=== PATIENT | male | born 1950 | race Caucasian/White ===

== ENCOUNTER 2020-10-12 16:31 | Emergency (ER) | payer MEDICARE, MEDICAID, SELFPAY ==
--- NOTE | ~2020-10-12 | CT_ITS ---
EXAMINATION: CT HEAD WITHOUT CONTRAST CLINICAL INFORMATION: Fall COMPARISON: Prior CT July 2012 TECHNIQUE: Contiguous axial imaging was performed from the skull base to vertex without intravenous administration of contrast. This CT examination was performed using dose optimization techniques as appropriate, variously including the following: *Automated exposure control *Adjustment of mA and/or kV according to patient size (this includes techniques or standardized protocols for targeted exams where dose is matched to indication/reason for exam; i.e. extremities or head) *Use of iterative reconstruction technique DLP: 776 mGy-cm FINDINGS: There is no evidence of acute intracranial hemorrhage or territorial infarction. No abnormal mass effect or midline shift is seen. Pearson to white matter differentiation is well preserved. No extra-axial fluid collections are identified. The ventricles are normal in size. There is no abnormal attenuation within the brain parenchyma. The osseous structures and soft tissues are normal. The mastoid air cells and visualized portions of the paranasal sinuses are well aerated. CT/CT head/brain wo con IMPRESSION: No acute intracranial pathology.
[2020-10-12 16:48] VITALS: BP 119/71; PULSE 63; RESP 16; TEMP 36.2; O2SAT 94; BMI 27.2
--- NOTE | 2020-10-12 16:57 | ECG_ITS ---
Test Reason : near syncope Blood Pressure : / mmHG Vent. Rate : 082 BPM Atrial Rate : 082 BPM P-R Int : 130 ms QRS Dur : 102 ms QT Int : 392 ms P-R-T Axes : 073 008 026 degrees QTc Int : 457 ms Poor data quality Normal sinus rhythm Nonspecific ST and T wave abnormality Abnormal ECG When compared with ECG of 30-SEP-2014 08:40, No significant change was found Referred By: Mesha Latham Electronically Signed By:NANCIE SCHAEFER MD
--- NOTE | 2020-10-12 16:59 | ED.SYNCOPE ---
HPI - Syncope General Chief Complaint: Syncope Stated Complaint: dizzy Time Seen by Provider: 10/12/20 16:55 Source: patient Mode of arrival: EMS Limitations: no limitations History of Present Illness complaint: almost passed out Onset (ago): week(s) (4) Prodromal symptoms: lightheaded Witnessed: No Context: standing up Injuries sustained associated with event: none Current symptoms: back to baseline History: other (parkinson's disease) Treatments prior to arrival: none Related Data Home Medications Medication Instructions Recorded Confirmed acetaminophen 650 mg PO Q6H PRN 10/12/20 10/12/20 amlodipine 1 tab PO DAILY 10/12/20 10/12/20 apixaban [Eliquis] 1 tab PO BID 10/12/20 10/12/20 benzonatate 100 mg PO TID PRN 10/12/20 10/12/20 carbidopa-levodopa [Rytary] 1 cap PO TID@1900,2200 10/12/20 10/12/20 carbidopa-levodopa [Rytary] 2 cap PO 0530,1000,1430,1900 10/12/20 10/12/20 carbidopa-levodopa [Rytary] 2 cap PO BID@0530,1000,1430 10/12/20 10/12/20 gabapentin 1 cap PO TID 10/12/20 10/12/20 glimepiride 1 tab PO QAM 10/12/20 10/12/20 ibuprofen 1 tab PO BID 10/12/20 10/12/20 magnesium oxide 200 mg PO DAILY 10/12/20 10/12/20 magnesium oxide 400 mg PO BEDTIME 10/12/20 10/12/20 multivitamin 1 tab PO QAM 10/12/20 10/12/20 oxybutynin chloride 1 tab PO BEDTIME 10/12/20 10/12/20 pimavanserin [Nuplazid] 1 cap PO DAILY 10/12/20 10/12/20 sennosides [senna] 17.2 mg PO DAILY PRN 10/12/20 10/12/20 Allergies Allergy/AdvReac Type Severity Reaction Status Date / Time No Known Allergies Allergy Unverified 12/08/19 16:17 Review of Systems Review of Systems: Constitutional : No Weight loss, No Fever, No Chills, No Fatigue, No Malaise ENT/Mouth : No sore throat, No Rhinorrhea Eyes: No Eye Pain, No Swelling, No Redness Cardiovascular : No Chest Pain, No SOB, No Dyspnea on Exertion, No Orthopnea, No Edema, No Palpitations Respiratory : No Cough, No Sputum, No Wheezing Gastrointestinal : No Nausea, No Vomiting, No Diarrhea, No Constipation, No abdominal Pain, No Hematochezia, No Melena Genitourinary : No Dysuria, No Urinary Frequency, No Hematuria, Musculoskeletal : No joint pain, No Myalgias, No Joint Swelling Skin : No Skin Lesions, No rash Neuro : No Weakness, No Numbness, No Dizziness, No Headache, pos blacking out episodes Psych : No Anxiety/Panic, No Depression Heme/Lymph: No Bruising, No Bleeding,No Lymphadenopathy Endocrine : No Polyuria, No Polydipsia All other systems reviewed and are negative [facility] Past Medical History Attestation statement: The following information was validated with the patient. Medical History (Updated 10/12/20 @ 19:31 by Mesha Latham DO) Diabetes DVT (deep venous thrombosis) Parkinsons Social History Social History (Updated 10/12/20 @ 17:01 by Mesha Latham DO) Alcohol intake: never Patient Tobacco Use Status: Never used Tobacco Use of substances other than those prescribed or required for medical reasons: No Advance Directives: No Advance Directives Information Provided: Yes Physical Exam Vital Signs: Vital Signs: Last Vital Signs Temp 97.1 F 10/12/20 16:48 Pulse 68 10/12/20 17:53 Resp 16 10/12/20 16:48 BP 119/71 10/12/20 17:53 Pulse Ox 94 10/12/20 16:48 Body Mass Index 27.2 Appearance: Alert. Oriented X3. No acute distress. Eyes: Pupils equal, round and reactive to light. ENT: Pharynx normal. Neck: Normal inspection. Neck supple. CVS: Normal heart rate and rhythm. Pulses normal. Respiratory: No respiratory distress. Breath sounds normal. Abdomen: Soft and nontender. Skin: Skin warm and dry. Normal skin color. Normal skin turgor. Extremities: No lower extremity edema. No calf ttp Neuro: Oriented X 3. No motor deficit. No sensory deficit. tremor noted and some intermittent jerking movements of his head Course Course Course Narrative: patient is orthostatic repeat IVF ordered at this time, up and walking to the bathroom feels better will take off his amlodipine until he sees his PCP pateint feels much better no symptoms with standing after IVF MDM - Syncope MDM Narrative Medical decision making narrative: 70 yo male with hx of DVT on eliquis, DM, Parkinson's x 19 years comes in today with c/o near syncope occuring when he stands - no CP/SOB, no GIB symptoms, states he did not strike his head, suspect that this is due to his parkinson's disease and autonomic dysfunction, labs, EKG, ortho VS, IVF, CT head given eliquis use and repeated near falls x 4 weeks - dispo per results and findings., Lab Data Result diagrams: 10/12/20 17:15 10/12/20 17:15 Labs: Lab Results 10/12/20 10/12/20 10/12/20 Range/Units 17:14 17:15 17:15 WBC 9.0 (4.8-10.8) X10*3/uL RBC 4.75 (4.60-5.80) X10*6/uL Hgb 13.8 L (14.0-18.0) g/dl Hct 41.1 L (42-52) % MCV 86.5 (80-98) fL MCH 29.1 (27.0-33.0) pg MCHC 33.6 (31.0-36.0) g/dl RDW 12.7 (11.0-16.0) % Plt Count 221 (160-400) X10*3/uL MPV 10.3 (9.4-12.4) fL Immature Gran % (Auto) 0.3 (0.0-0.4) % Neut % (Auto) 75.4 H (45-73) % Lymph % (Auto) 13.2 L (20-40) % [place] % (Auto) 8.1 (2-11) % Eos % (Auto) 2.7 (0-4) % Baso % (Auto) 0.3 (0-2) % Lymph # (Auto) 1.2 (1.2-4.9) X10*3/uL [place] # (Auto) 0.7 (0.1-1.2) X10*3/uL Eos # (Auto) 0.2 (0.0-0.4) X10*3/uL Baso # (Auto) 0.0 (0.0-0.2) X10*3/uL Abs Immat Gran (auto) 0.03 (0.00-0.03) X10*3/uL Absolute Neuts (auto) 6.8 (2.0-8.3) X10*3/uL Absolute Nucleated RBC 0.000 (0.0-0.012) X10*3/uL Nucleated RBC % (auto) 0.0 (0.0-0.2) /100WBC PT (9.9-13.0) SEC INR (0.9-1.1) APTT (24.1-38.0) SEC Sodium 140 (135-145) mmol/L Potassium 4.1 (3.3-5.1) mmol/L Chloride 106 (96-108) mmol/L Carbon Dioxide 27 (22-29) mmol/L Anion Gap 11 L (12-20) BUN 26 H (9-16) mg/dL Creatinine 1.39 (0.5-1.4) mg/dL Estim Creat Clear Calc 52.5 Estimated GFR 51 Random Glucose 104 (60-115) mg/dL Lactic Acid 1.1 (0.5-2.0) mmol/L Calcium 9.0 (8.4-10.2) mg/dL Magnesium (1.6-2.6) mg/dL Total Bilirubin (0.0-1.0) mg/dL Direct Bilirubin (0.0-0.5) mg/dL AST (5-37) U/L ALT (0-40) U/L Alkaline Phosphatase (39-117) U/L Troponin I High Sens (<3.5-35.0) ng/L Total Protein (6.5-8.0) g/dL Albumin (3.5-5.0) g/dL Urine Color Urine Appearance Urine pH (5.0-8.0) Ur Specific [place] (1.005-1.025) Urine Protein (NEG-TRACE) MG/DL Urine Glucose (UA) (NEG) MG/DL Urine Ketones (NEG) MG/DL Urine Blood (NEG) Urine Nitrite (NEG) Ur Leukocyte Esterase (NEG) COVID-19 (BRIGHT) (Negative) COVID-19 Clin Com 10/12/20 10/12/20 10/12/20 Range/Units 17:15 17:15 17:15 WBC (4.8-10.8) X10*3/uL RBC (4.60-5.80) X10*6/uL Hgb (14.0-18.0) g/dl Hct (42-52) % MCV (80-98) fL MCH (27.0-33.0) pg MCHC (31.0-36.0) g/dl RDW (11.0-16.0) % Plt Count (160-400) X10*3/uL MPV (9.4-12.4) fL Immature Gran % (Auto) (0.0-0.4) % Neut % (Auto) (45-73) % Lymph % (Auto) (20-40) % [place] % (Auto) (2-11) % Eos % (Auto) (0-4) % Baso % (Auto) (0-2) % Lymph # (Auto) (1.2-4.9) X10*3/uL [place] # (Auto) (0.1-1.2) X10*3/uL Eos # (Auto) (0.0-0.4) X10*3/uL Baso # (Auto) (0.0-0.2) X10*3/uL Abs Immat Gran (auto) (0.00-0.03) X10*3/uL Absolute Neuts (auto) (2.0-8.3) X10*3/uL Absolute Nucleated RBC (0.0-0.012) X10*3/uL Nucleated RBC % (auto) (0.0-0.2) /100WBC PT 14.8 H (9.9-13.0) SEC INR 1.3 H (0.9-1.1) APTT 36.7 (24.1-38.0) SEC Sodium (135-145) mmol/L Potassium (3.3-5.1) mmol/L Chloride (96-108) mmol/L Carbon Dioxide (22-29) mmol/L Anion Gap (12-20) BUN (9-16) mg/dL Creatinine (0.5-1.4) mg/dL Estim Creat Clear Calc Estimated GFR Random Glucose (60-115) mg/dL Lactic Acid (0.5-2.0) mmol/L Calcium (8.4-10.2) mg/dL Magnesium 2.4 (1.6-2.6) mg/dL Total Bilirubin 0.6 (0.0-1.0) mg/dL Direct Bilirubin 0.3 (0.0-0.5) mg/dL AST 11 (5-37) U/L ALT < 6 (0-40) U/L Alkaline Phosphatase 75 (39-117) U/L Troponin I High Sens (<3.5-35.0) ng/L Total Protein 6.4 L (6.5-8.0) g/dL Albumin 4.1 (3.5-5.0) g/dL Urine Color Urine Appearance Urine pH (5.0-8.0) Ur Specific [place] (1.005-1.025) Urine Protein (NEG-TRACE) MG/DL Urine Glucose (UA) (NEG) MG/DL Urine Ketones (NEG) MG/DL Urine Blood (NEG) Urine Nitrite (NEG) Ur Leukocyte Esterase (NEG) COVID-19 (BRIGHT) Negative (Negative) COVID-19 Clin Com See Note 10/12/20 10/12/20 Range/Units 17:15 19:09 WBC (4.8-10.8) X10*3/uL RBC (4.60-5.80) X10*6/uL Hgb (14.0-18.0) g/dl Hct (42-52) % MCV (80-98) fL MCH (27.0-33.0) pg MCHC (31.0-36.0) g/dl RDW (11.0-16.0) % Plt Count (160-400) X10*3/uL MPV (9.4-12.4) fL Immature Gran % (Auto) (0.0-0.4) % Neut % (Auto) (45-73) % Lymph % (Auto) (20-40) % [place] % (Auto) (2-11) % Eos % (Auto) (0-4) % Baso % (Auto) (0-2) % Lymph # (Auto) (1.2-4.9) X10*3/uL [place] # (Auto) (0.1-1.2) X10*3/uL Eos # (Auto) (0.0-0.4) X10*3/uL Baso # (Auto) (0.0-0.2) X10*3/uL Abs Immat Gran (auto) (0.00-0.03) X10*3/uL Absolute Neuts (auto) (2.0-8.3) X10*3/uL Absolute Nucleated RBC (0.0-0.012) X10*3/uL Nucleated RBC % (auto) (0.0-0.2) /100WBC PT (9.9-13.0) SEC INR (0.9-1.1) APTT (24.1-38.0) SEC Sodium (135-145) mmol/L Potassium (3.3-5.1) mmol/L Chloride (96-108) mmol/L Carbon Dioxide (22-29) mmol/L Anion Gap (12-20) BUN (9-16) mg/dL Creatinine (0.5-1.4) mg/dL Estim Creat Clear Calc Estimated GFR Random Glucose (60-115) mg/dL Lactic Acid (0.5-2.0) mmol/L Calcium (8.4-10.2) mg/dL Magnesium (1.6-2.6) mg/dL Total Bilirubin (0.0-1.0) mg/dL Direct Bilirubin (0.0-0.5) mg/dL AST (5-37) U/L ALT (0-40) U/L Alkaline Phosphatase (39-117) U/L Troponin I High Sens 4.0 (<3.5-35.0) ng/L Total Protein (6.5-8.0) g/dL Albumin (3.5-5.0) g/dL Urine Color YELLOW Urine Appearance HAZY Urine pH 6.0 (5.0-8.0) Ur Specific [place] 1.020 (1.005-1.025) Urine Protein NEG (NEG-TRACE) MG/DL Urine Glucose (UA) NEG (NEG) MG/DL Urine Ketones 5 (NEG) MG/DL Urine Blood NEG (NEG) Urine Nitrite NEG (NEG) Ur Leukocyte Esterase NEG (NEG) COVID-19 (BRIGHT) (Negative) COVID-19 Clin Com ECG Data Attestation: I personally reviewed and interpreted this ECG as follows: ECG interpretation date: 10/12/20 ECG interpretation time: 20:33 Interpretation: Rate: 825 Rhythm: NSR [place]: left Normal P waves. Normal JUANITO. Normal QRS complex. ST T wave : normal no DANIELLE, nonspecific qTC: normal prior studies: no acute ischemia artifact noted The study has been interpreted contemporaneously by me. . Discharge Plan Discharge Clinical Impression: Orthostatic hypotension Patient Disposition: Home, Self-Care Instructions: Hypotension (ED) Additional Instructions: return to ED for any worsening symptoms or concerns STOP TAKING AMLODIPINE UNTIL YOU SEE YOUR DOCTOR BEFORE STANDING COUNT TO 20 THEN STAND Prescriptions: No Action multivitamin Tablet 1 tab PO QAM RF: 0 gabapentin 400 mg capsule 1 cap PO TID RF: 0 amlodipine 5 mg tablet 1 tab PO DAILY RF: 0 glimepiride 1 mg tablet 1 tab PO QAM RF: 0 magnesium oxide 400 mg (241.3 mg magnesium) tablet 400 mg PO BEDTIME RF: 0 magnesium oxide 400 mg (241.3 mg magnesium) tablet 200 mg PO DAILY RF: 0 ibuprofen 600 mg tablet 1 tab PO BID RF: 0 oxybutynin chloride 5 mg tablet 1 tab PO BEDTIME RF: 0 Eliquis 2.5 mg tablet 1 tab PO BID RF: 0 Rytary 23.75-95 mg capsule, extended release 2 cap PO BID@0530,1000,1430 RF: 0 Rytary 23.75-95 mg capsule, extended release 1 cap PO TID@1900,2200 RF: 0 Nuplazid 34 mg capsule 1 cap PO DAILY RF: 0 sennosides [senna] 8.6 mg Tablet 17.2 mg PO DAILY PRN (Reason: Constipation) RF: 0 acetaminophen 325 mg Tablet 650 mg PO Q6H PRN (Reason: Pain) RF: 0 benzonatate 100 mg Capsule 100 mg PO TID PRN (Reason: Cough) RF: 0 Rytary 61.25-245 mg capsule, extended release 2 cap PO 0530,1000,1430,1900 RF: 0 Referrals: Sundeep Sosa MD [Primary Care Provider] - 5 days (THURSDAY)
[2020-10-12 17:23] LABS: MANUAL DIFF FLAG NO
[2020-10-12 17:24] LABS: Basophils Percent Auto 0.3 % (0-2); Eosinophils Absolute Auto 0.2 X10*3/uL (0.0-0.4); Eosinophils Percent Auto 2.7 % (0-4); Hematocrit 41.1 % (42-52); Hemoglobin 13.8 g/dl (14.0-18.0); Imm Gran Abs Auto 0.03 X10*3/uL (0.00-0.03); Imm Gran Pct Auto 0.3 % (0.0-0.4); Lymphocytes Absolute Auto 1.2 X10*3/uL (1.2-4.9); Lymphocytes Percent Auto 13.2 % (20-40); Mean Corpuscular HGB Conc 33.6 g/dl (31.0-36.0); Mean Corpuscular Hemoglobin 29.1 pg (27.0-33.0); Mean Corpuscular Volume 86.5 fL (80-98); Mean Platelet Volume 10.3 fL (9.4-12.4); Monocytes Absolute Auto 0.7 X10*3/uL (0.1-1.2); Monocytes Percent Auto 8.1 % (2-11); Neutrophils Absolute Auto 6.8 X10*3/uL (2.0-8.3); Neutrophils Percent Auto 75.4 % (45-73); Platelet Count 221 X10*3/uL (160-400); Red Blood Count 4.75 X10*6/uL (4.60-5.80); Red Cell Distribution Width 12.7 % (11.0-16.0)
[2020-10-12 17:30] LABS: INTERNATIONAL NORM RATIO 1.3 (0.9-1.1); Prothrombin Time 14.8 SEC (9.9-13.0)
[2020-10-12 17:33] LABS: Partial Thromboplastin Time 36.7 SEC (24.1-38.0)
[2020-10-12] MEDS: 0.9 % Sodium Chloride 1,000 ML 999 ML IVCONT ×2 (17:37→20:45)
[2020-10-12 17:47] LABS: Lactic Acid 1.1 mmol/L (0.5-2.0)
[2020-10-12 17:50] LABS: COVID-19 Test Negative (Negative); IDNOW Serial# 08D9AD1C
[2020-10-12 17:52] VITALS: BP 142/87; PULSE 63
[2020-10-12 17:52] LABS: Anion Gap 11 (12-20); Blood Urea Nitrogen 26 mg/dL (9-16); Carbon Dioxide 27 mmol/L (22-29); Chloride 106 mmol/L (96-108); Creatinine Clr Calc Pharmacy 52.5; Estimated Glomerular Filt Rate 51; Glucose Random 104 mg/dL (60-115); Potassium 4.1 mmol/L (3.3-5.1); Sodium 140 mmol/L (135-145)
[2020-10-12 17:53] VITALS: BP 119/71; BP 123/79; PULSE 66; PULSE 68
[2020-10-12 18:02] LABS: Alanine Aminotransferase < 6 U/L (0-40); Albumin Level 4.1 g/dL (3.5-5.0); Alkaline Phosphatase 75 U/L (39-117); Aspartate Amino Transferase 11 U/L (5-37); Bilirubin Direct 0.3 mg/dL (0.0-0.5); Bilirubin Total 0.6 mg/dL (0.0-1.0); Magnesium 2.4 mg/dL (1.6-2.6); Total Protein 6.4 g/dL (6.5-8.0)
[2020-10-12] MEDS: Carbidopa/Levodopa CR 25/100 TABLET.ER 1 TAB PO (19:01)
[2020-10-12] MEDS: Carbidopa/Levodopa CR 50/200 TABLET.ER 2.5 TAB PO (19:01)
[2020-10-12 19:15] LABS: Glucose Urine UA NEG (NEG); Leukocyte Esterase Urine NEG (NEG); Nitrite Urine NEG (NEG); Urine Blood NEG (NEG); Urine Ketones 5 MG/DL (NEG); Urine Protein NEG (NEG-TRACE)
[2020-10-12 19:16] LABS: Appearance Urine HAZY; Color Urine YELLOW
[2020-10-12 22:08] VITALS: BP 134/76; PULSE 72; RESP 16; TEMP 36.7; O2SAT 97
== END 2020-10-12 22:09 | disposition home or self-care (01) ==
PROVIDERS: Emergency Provider Emergency Medicine; PCP Family Medicine
DX: I95.1 Orthostatic hypotension (principal); R42 Dizziness and giddiness; Z20.822 Contact with and (suspected) exposure to COVID-19; Z86.718 Personal history of other venous thrombosis and embolism; Z79.01 Long term (current) use of anticoagulants
CPT/HCPCS: 36415; 70450; 80048; 80076; 81003; 83605; 83735; 84484; 85025; 85610; 85730; 87635; 93005; 96360; 99284

== ENCOUNTER 2021-02-13 10:01 | Outpatient (REF) | payer MEDICARE, MEDICAID, SELFPAY | END 2021-02-13 10:02 | disposition home or self-care (01) | LOC: HO.LAB 10:01 | PROVIDERS: Visit Provider Internal Medicine | DX: Z20.822 Contact with and (suspected) exposure to COVID-19 (principal) | CPT/HCPCS: C9803; U0003; U0005 ==

== ENCOUNTER → 2021-04-04 11:39 | Outpatient (BNVA) | payer MEDICARE, MEDICAID, SELFPAY | PROVIDERS: PCP Family Medicine; Visit Provider Nurse Practitioner Family | DX: G20 Parkinson's disease (principal); G47.52 REM sleep behavior disorder; G47.51 Confusional arousals; F39 Unspecified mood [affective] disorder | CPT/HCPCS: 99212 ==

== ENCOUNTER → 2021-06-25 12:02 | Outpatient (REF) | payer MEDICARE, MEDICAID, SELFPAY | LOC: HO.SL 12:02 | PROVIDERS: Visit Provider Nurse Practitioner Family | DX: R06.83 Snoring (principal); G47.19 Other hypersomnia; G47.51 Confusional arousals | CPT/HCPCS: 95806 ==

== ENCOUNTER → 2021-07-04 11:05 | Outpatient (BNVA) | payer MEDICARE, MEDICAID, SELFPAY | PROVIDERS: PCP Family Medicine; Visit Provider Nurse Practitioner Family | DX: G20 Parkinson's disease (principal); G47.51 Confusional arousals; G47.52 REM sleep behavior disorder; R06.83 Snoring; F39 Unspecified mood [affective] disorder | CPT/HCPCS: 99212 ==

== ENCOUNTER → 2021-10-03 11:42 | Outpatient (BNVA) | payer MEDICARE, MEDICAID, SELFPAY | PROVIDERS: Visit Provider Nurse Practitioner Family | DX: G20 Parkinson's disease (principal); G47.52 REM sleep behavior disorder; F39 Unspecified mood [affective] disorder; G47.51 Confusional arousals; Z79.899 Other long term (current) drug therapy | CPT/HCPCS: 99212 ==

== ENCOUNTER → 2021-11-20 20:30 | Outpatient (REF) | payer MEDICARE, MEDICAID, SELFPAY | LOC: HO.SL 20:30 | PROVIDERS: PCP Nurse Practitioner Family; Visit Provider Nurse Practitioner Family | DX: G47.52 REM sleep behavior disorder (principal); G20 Parkinson's disease; G47.51 Confusional arousals; R06.83 Snoring | CPT/HCPCS: 95810 ==

== ENCOUNTER → 2022-01-02 10:51 | Outpatient (BNVA) | payer MEDICARE, MEDICAID, SELFPAY | PROVIDERS: PCP Nurse Practitioner Family; Visit Provider Nurse Practitioner Family | DX: G47.31 Primary central sleep apnea (principal); G20 Parkinson's disease; G31.84 Mild cognitive impairment of uncertain or unknown etiology; G47.33 Obstructive sleep apnea (adult) (pediatric); F39 Unspecified mood [affective] disorder; G47.52 REM sleep behavior disorder | CPT/HCPCS: 99212 ==

== ENCOUNTER → 2022-02-25 19:30 | Outpatient (REF) | payer MEDICARE, MEDICAID, SELFPAY | LOC: HO.SL 19:30 | PROVIDERS: Visit Provider Psychiatry & Neurology Neurology | DX: G47.33 Obstructive sleep apnea (adult) (pediatric) (principal) | CPT/HCPCS: 95811 ==

== ENCOUNTER → 2022-04-02 11:03 | Outpatient (BNVA) | payer MEDICARE, MEDICAID, SELFPAY | PROVIDERS: PCP Family Medicine; Visit Provider Nurse Practitioner Family | DX: G20 Parkinson's disease (principal); G47.33 Obstructive sleep apnea (adult) (pediatric); G47.31 Primary central sleep apnea; G31.84 Mild cognitive impairment of uncertain or unknown etiology; F39 Unspecified mood [affective] disorder | CPT/HCPCS: 99212 ==

== ENCOUNTER → 2022-07-11 11:26 | Outpatient (BNVA) | payer MEDICARE, MEDICAID, SELFPAY | PROVIDERS: PCP Family Medicine; Visit Provider Nurse Practitioner Family | DX: G20 Parkinson's disease (principal); R42 Dizziness and giddiness | CPT/HCPCS: 99212 ==

== ENCOUNTER 2023-05-26 13:01 | Outpatient (AMB) | payer MEDICARE, MEDICAID, SELFPAY ==
--- NOTE | 2023-05-26 13:08 | MHC.OFFVIS ---
Intake Vital Signs 05/26/23 13:16 Weight 166 lb BP 96/64 Blood Pressure Location Rt brachial Position Sitting Pulse 79 Pulse Source Pulse Oximeter Pulse Oximetry (%) 97 Oxygen Delivery Method Room Air Intake Visit Reasons: f/u appt-Conf Intake Note: Patient presents for follow up. no issues or concerns Allergies No Known Allergies Allergy (Verified 05/26/23 13:11) Medication List - Last Reconciled 05/26/23 by GRZEGORZ Cee acetaminophen (Tylenol) 650 mg PO Q6H PRN apixaban (Eliquis) 5 mg PO BID benzonatate 100 mg PO TID PRN carbidopa-levodopa 23.75-95 mg ER (Rytary) 2 caps at 0530, 1000, 1430, 1 cap at 1700 and 2200 orally; 90 days carbidopa-levodopa 61.25-245 mg ER (Rytary) 2 caps PO QID 30 days clozapine 25 mg PO BEDTIME gabapentin 1 cap PO TID glimepiride 2 mg PO QAM glimepiride 2 mg PO DAILY hydralazine 25 mg PO QID magnesium oxide 200 mg PO DAILY magnesium oxide 400 mg PO BEDTIME metoprolol succinate ER 12.5 mg PO DAILY multivitamin 1 tab PO QAM oxybutynin chloride 1 tab PO BEDTIME pimavanserin (Nuplazid) 1 cap PO DAILY rosuvastatin 10 mg PO DAILY sennosides (senna) 17.2 mg PO DAILY PRN HPI HPI Comments History of Present Illness Details 72-yr-old male presents for f/u visit, accompanied by [facility] staff. Pt last seen in June 2022. Pt denies any significant interval medical history changes. However, he recently did have a mild Covid-19 infection, which was tx'd w/ Paxlovid d/t his comorbidities. Pt's current PD medication regimen: Rytary 61. 25-245mg- 2 caps QID at 5:30am, 10am, 2:30pm, 7pm, Rytary 23. 75-95 mg- 2 caps TID at 5:30am, 10am, 2:30pm, and Rytary 23. 75-95mg 1 cap at 7pm and 10pm- pt may be woken for 10pm dose. Pt had been having episodes of passing out. He states this is better since one of his medications (possibly metoprolol) was stopped. His last episode was about a month ago. He describes the syncope as usually just after standing up or standing up and taking a few steps- and then things just get real black and he slumps to the floor. Staff is also encouraging him to drink more. He can still have transient milder orthostatic lightheaded. In office today his BP is mildly hypotensive. On review of his recent penitentiary records- BP has been ranging from 128/81 to 189/111- pt states these are taken before his am meds. ADL's: Needing some help Swallowing: No issues Drooling: Denies Orthostatic lightheadedness: as above Constipation: Denies Freezing: Denies Stiffness: Denies Dyskinesia: Is having more dyskinesia- usually an hour before each med pass, and resolves pretty quickly after taking Rytary.. Tremor: None Falls: Has had some falls- has banged his knee. Hallucinations: Denies Memory: No issues Sleep: Sleeping ok Exercise: Has PT twice a week. [facility] Medical History Diabetes DVT (deep venous thrombosis) Parkinsons Surgical History No pertinent past surgical history Social History Alcohol intake: never Patient Tobacco Use Status: Never used Tobacco Review of Systems Const All systems reviewed & are unremarkable except as noted in HPI and below Physical Exam Vital Signs: Last Vital Signs Pulse 79 05/26/23 13:16 BP 96/64 05/26/23 13:16 Pulse Ox 97 05/26/23 13:16 Oxygen Delivery Method Room Air 05/26/23 13:16 Const General: cooperative and no acute distress Resp Effort & Inspection: normal respiratory effort and able to speak in complete sentences Neuro Other: General: A&O, w/ some limited insight Expression: Decreased Voice: soft Tremor: None Tone: BUE tone Dyskinesia: Marked generalized dyskinesia FFM: Mild bradykinesia Foot taps: Bradykinesia Gait: Stands ok, dyskinetic, knees bent, short steps, overall steady Psych: Pleasant affect Assessment & Plan Assessment & Plan (1) Parkinson's disease with dyskinesia: Code(s): G20.B1 - Parkinson's disease with dyskinesia, without mention of fluctuations (2) Orthostatic lightheadedness: Code(s): R42 - Dizziness and giddiness (3) Syncope: Code(s): R55 - Syncope and collapse (4) HTN (hypertension): Code(s): I10 - Essential (primary) hypertension Plan Will request recent PCP notes and previous CV work-up.. Will request nephrology consult- would appreciate an eval for 24 hr BP monitor to better assess BP status/fluctuations. Stop current Rytary regimen: Rytary 61. 25-245mg- 2 caps QID at 5:30am, 10am, 2:30pm, 7pm, Rytary 23. 75-95 mg- 2 caps TID at 5:30am, 10am, 2:30pm, Rytary 23. 75-95mg 1 cap at 7pm and 10pm- pt may be woken for 10pm dose.? Decrease Rytary regimen, in hopes this reduces dyskinesia, orthostatic lightheadedness, risk for syncope- Rytary 61. 25-245mg- 2 caps QID at 5:30am, 10am, 2:30pm, 7pm, Rytary 23. 75-95 mg- 1 cap QID at 5:30am, 10am, 2:30pm, 10pm- pt may be woken for 10pm dose. Continue Nuplazid 34mg qd. Continue to hold PAP therapy- pt did not tolerate f/u in 3 months or sooner prn. Orders: Referrals Nephrology Referral G20.B1 - Parkinson's disease with dyskinesia, without mention of fluctuations, I10 - Essential (primary) hypertension, R42 - Dizziness and giddiness, R55 - Syncope and collapse Medications: Refilled carbidopa-levodopa 23.75-95 mg ER (Rytary) 2 caps at 0530, 1000, 1430, 1 cap at 1700 and 2200 orally; 90 days 240 caps 6RF Coding Level of Care Code Est Pt Level 4 (77495) Diagnoses Parkinson's disease with dyskinesia G20.B1 Orthostatic lightheadedness R42 Syncope R55 HTN (hypertension) I10
[2023-05-26 13:16] VITALS: BP 96/64; PULSE 79; O2SAT 97
== END 2023-05-26 14:04 | disposition home or self-care (01) ==
PROVIDERS: PCP Family Medicine; Visit Provider Nurse Practitioner Family
DX: G20.B1 Parkinson's disease with dyskinesia, without mention of fluctuations (principal); R42 Dizziness and giddiness; R55 Syncope and collapse; I10 Essential (primary) hypertension
CPT/HCPCS: 99214

== ENCOUNTER → 2023-05-26 13:01 | Outpatient (BNVA) | payer MEDICARE, MEDICAID, SELFPAY | PROVIDERS: PCP Family Medicine; Visit Provider Nurse Practitioner Family | DX: G20.B1 Parkinson's disease with dyskinesia, without mention of fluctuations (principal); R42 Dizziness and giddiness; R55 Syncope and collapse; I10 Essential (primary) hypertension | CPT/HCPCS: 99212 ==

== ENCOUNTER 2023-06-17 12:03 | Outpatient (AMB) | payer MEDICARE, MEDICAID, SELFPAY ==
--- NOTE | 2023-06-17 12:04 | HO.NEPHOV_ITS ---
HPI HPI Comments History of Present Illness Details I had the pleasure of seeing Kirk who is 72 year old male in consultation for labile blood pressure with orthostasis on a backdrop of CKD and Parkinson's disease. He was accompanied by his care home staff. He is known to have diabetes but denies any retinopathy or diabetic neuropathy. He has history of hypertension and has been on metoprolol, lisinopril and hydralazine in the past he had been having multiple episodes of syncope recently and his hydralazine had been discontinued at that time. He continues to be on metoprolol and lisinopril. His orthostatic symptoms were happening more so when he stands up from sitting or lying down positions. He did not have any chest pain or palpitation or wanting symptoms preceding the event. He has not had any loop monitor, Holter or echocardiogram. Ever since his hydralazine has been discontinued he feels remarkably better. He denies fever, chest pain, shortness of breath, palpitation, pedal edema or urinary symptoms. He feels his Parkinson's disease is under good control. [facility] Medical History Diabetes DVT (deep venous thrombosis) Parkinsons Surgical History No pertinent past surgical history Social History Alcohol intake: never Patient Tobacco Use Status: Never used Tobacco Vital Signs 06/17/23 12:05 Height 5 ft 10 in Weight 163 lb 6 oz BMI 23.4 BP 132/80 Blood Pressure Location Lt brachial Position Sitting Pulse 72 Pulse Source Pulse Oximeter Pulse Oximetry (%) 98 Oxygen Delivery Method Room Air Physical Exam Vital Signs: Last Vital Signs Pulse 72 06/17/23 12:05 BP 132/80 06/17/23 12:05 Pulse Ox 98 06/17/23 12:05 Oxygen Delivery Method Room Air 06/17/23 12:05 BMI result Body Mass Index 23.4 Const General: no acute distress, alert and awake Orientation/consciousness: patient oriented x3 Eyes EOM: EOMs intact bilaterally Neck Neck: Yes supple Resp Auscultation: diminished lung sounds Cardio Jugular venous distension: no JVD Rate: regular rate GI Palpation (GI): Soft to palpation General: Yes no CVA tenderness Back/Spine/Pelvis Back: no CVA tenderness Skin General skin exam: no rashes or lesions noted Neuro General: patient oriented x3 and moves all extremities Extrem General: Yes no pedal edema Assessment & Plan Assessment & Plan (1) HTN (hypertension): Code(s): I10 - Essential (primary) hypertension Qualifiers: Hypertension type: primary hypertension Qualified Code(s): I10 - Essential (primary) hypertension (2) CKD (chronic kidney disease) stage 3, GFR 30-59 ml/min: Code(s): N18.30 - Chronic kidney disease, stage 3 unspecified Qualifiers: Chronic kidney disease stage 3 subtype: stage 3a (GFR 45-59) Qualified Code(s): N18.31 - Chronic kidney disease, stage 3a (3) Orthostatic hypotension dysautonomic syndrome: Code(s): I95.1 - Orthostatic hypotension Plan Kirk is a diabetic and hypertensive. He is known to have CKD. He has Parkinson's disease. He has been having dysautonomia, more pronounced when he was taking hydralazine. It had been discontinued and he remains on lisinopril and metoprolol. We should do an echocardiogram, Holter monitor or loop recorder for workup completion. He still has some orthostasis but not anywhere close to what he had in the past. When I checked his blood pressure sitting and standing there was a systolic drop of close to 20 mmHg. I have ordered CBC and renal functions. If he continues to have symptom he could be a candidate for midodrine, Florinef or Droxidopa. He is well hydrated clinically and is not tachycardic. He is also on oxybutynin which he should take orally at bedtime. I did not make any changes today. All his questions were answered. I will be following up in the office in a few months to see whether he needs medications to avoid significant orthostasis. Further management is pending evolving data. Orders: Orders Complete Blood Count Auto Diff Today I10 - Essential (primary) hypertension Creatinine Today I10 - Essential (primary) hypertension Blood Urea Nitrogen Today I10 - Essential (primary) hypertension Electrolytes Today I10 - Essential (primary) hypertension Coding Level of Care Code New Pt Level 4 (91525) Diagnoses Primary hypertension I10 Hypertension type: primary hypertension Stage 3a chronic kidney disease N18.31 Chronic kidney disease stage 3 subtype: stage 3a (GFR 45-59) Orthostatic hypotension dysautonomic syndrome I95.1 Results Reviewed Nephrology Results: No Data to Display
[2023-06-17 12:05] VITALS: BP 132/80; PULSE 72; O2SAT 98; BMI 23.4
== END 2023-06-17 12:31 | disposition home or self-care (01) ==
PROVIDERS: PCP Family Medicine; Referring Provider Nurse Practitioner Family; Visit Provider Internal Medicine Nephrology
DX: I10 Essential (primary) hypertension (principal); N18.31 Chronic kidney disease, stage 3a; I95.1 Orthostatic hypotension
CPT/HCPCS: 99204

== ENCOUNTER → 2023-06-17 12:03 | Outpatient (BNVA) | payer MEDICARE, MEDICAID, SELFPAY | PROVIDERS: PCP Family Medicine; Referring Provider Nurse Practitioner Family; Visit Provider Internal Medicine Nephrology | DX: I12.9 Hypertensive chronic kidney disease with stage 1 through stage 4 chronic kidney disease, or unspecified chronic kidney disease (principal); N18.31 Chronic kidney disease, stage 3a; I95.1 Orthostatic hypotension | CPT/HCPCS: 99202 ==

== ENCOUNTER 2023-09-17 13:02 | Outpatient (AMB) | payer MEDICARE, MEDICAID, SELFPAY ==
--- NOTE | 2023-09-17 13:10 | MHC.OFFVIS ---
Vital Signs 09/17/23 13:12 Height 5 ft 10 in Weight 163 lb BMI 23.4 BP 170/98 H Blood Pressure Location Lt brachial Position Sitting Respiration 16 Pulse 75 Pulse Source Pulse Oximeter Pulse Oximetry (%) 98 Oxygen Delivery Method Room Air Intake Visit Reasons: f/u appt-LVM Intake Note: Pt presents tot he office for a 3 month follow up for orthostatic lightheadedness. [employer] Worker Required: No Allergies morphine Allergy (Verified 09/17/23 13:11) Unknown Medication List - Last Reconciled 09/17/23 by GRZEGORZ Cee acetaminophen (Tylenol) 650 mg PO Q6H PRN apixaban (Eliquis) 5 mg PO BID benzonatate 100 mg PO TID PRN carbidopa-levodopa 23.75-95 mg ER (Rytary) 1 caps at 05:30, 1000, 1430, and 22:00 orally; 90 days carbidopa-levodopa 61.25-245 mg ER (Rytary) 2 caps PO QID 30 days clozapine 25 mg PO BEDTIME gabapentin 1 cap PO TID glimepiride 2 mg PO DAILY lisinopril 5 mg PO DAILY magnesium oxide 200 mg PO DAILY magnesium oxide 400 mg PO BEDTIME metoprolol succinate ER 25 mg PO DAILY multivitamin 1 tab PO QAM pimavanserin (Nuplazid) 34 mg PO DAILY 30 days rosuvastatin 10 mg PO DAILY sennosides (senna) 17.2 mg PO DAILY PRN HPI Comments Details: 72-yr-old male presents for f/u visit, accompanied by his retirement staff member. Pt denies any significant interval medical history changes. Pt denies any specific concerns. At the last visit, we did decrease his Rytary dose- pt is now less hypotenive and orthostatic but is slower/stiffer. Staff support notes that pt's BP continues to be variable. Pt did see nephrology, who recommended that PCP or cardiology order echocardiogram, Holter monitor or loop recorder for workup completion Pt's current PD medication regimen: Rytary 61. 25-245mg- 2 caps QID at 5:30am, 10am, 2:30pm, 7pm, Rytary 23. 75-95 mg- 1 cap QID at 5:30am, 10am, 2:30pm, 10pm- pt may be woken for 10pm dose. Nuplazid 34mg qd. ADL's: Needing some help Swallowing: No issues Drooling: Denies Orthostatic lightheadedness: as above Constipation: Sometimes, but has a stool softener if needed. Urinary symptoms: Nocturnal incontinence- staff states that he may be wet 3 mornings in a week. Pt states that sometimes he cannot get up in the am. Freezing: Occasionally at times Stiffness: Sometimes Dyskinesia: This is happening less, but at times. Tremor: None Falls: One interval fall- lost balance. Hallucinations: Denies. But sometimes has paranoias that he is not safe, but staff support him. Memory: No issues Mood: Stable Sleep: Sleeping ok Exercise: Has PT and OT twice a week. [facility] Medical History (Updated 09/17/23 @ 14:05 by GRZEGORZ Cee) DVT (deep venous thrombosis) Diabetes Parkinsons Surgical History No pertinent past surgical history Social History Alcohol intake: never Patient Tobacco Use Status: Never used Tobacco Review of Systems Const All systems reviewed & are unremarkable except as noted in HPI and below Physical Exam Vital Signs: Last Vital Signs Pulse 75 09/17/23 13:12 Resp 16 09/17/23 13:12 BP 170/98 H 09/17/23 13:12 Pulse Ox 98 09/17/23 13:12 Oxygen Delivery Method Room Air 09/17/23 13:12 BMI result Body Mass Index 23.4 Const General: cooperative and no acute distress Resp Effort & Inspection: normal respiratory effort and able to speak in complete sentences Neuro Other: General: A&O, Generalized bradykineisa Expression: Decreased Voice: soft Tremor: None Tone: BUE tone Dyskinesia: None FFM: pt declined Foot taps: pt declined Gait: Stands slowly, no arm swing, knees bent, short steps, overall steady Psych: Pleasant affect Assessment & Plan Assessment & Plan (1) Parkinson's disease with dyskinesia: Code(s): G20.B1 - Parkinson's disease with dyskinesia, without mention of fluctuations Category: Medical (2) Orthostatic hypotension dysautonomic syndrome: Code(s): I95.1 - Orthostatic hypotension Category: Medical (3) Mood disorder: Comment: w/ h/o delusions and hallucinations Code(s): F39 - Unspecified mood [affective] disorder Category: Medical (4) MCI (mild cognitive impairment): Code(s): G31.84 - Mild cognitive impairment of uncertain or unknown etiology Category: Medical Plan Will again request recent PCP notes and previous CV work-up. Nephrology f/u as scheduled. If pt has not had previously, pt would also benefit from cardiology consult, echocardiogram, holter monitor. Stop current Rytary regimen, in hopes this improves on time without worsening risk for orthostatic lightheadedness, risk for syncope- Rytary 61. 25-245mg- 2 caps QID at 5:30am, 10am, 2:30pm, 7pm, Rytary 23. 75-95 mg- 1 cap QID at 5:30am, 10am, 2:30pm, 10pm- pt may be woken for 10pm dose. Start new Rytary regimen, in hopes this improves on time without worsening risk for orthostatic lightheadedness, risk for syncope- Rytary 61. 25-245mg- 2 caps QID at 5:30am, 10am, 2:30pm, 7pm, and 1 cap daily at 10pm Rytary 23. 75-95 mg- 1 cap QID at 5:30am, 10am, 2:30pm, 10pm. Continue Nuplazid 34mg qd. Continue to hold PAP therapy- pt did not tolerate f/u in 3 months or sooner prn. Medications: Changed From carbidopa-levodopa 61.25-245 mg ER (Rytary) at 5:30am, 10am, 2:30pm, 7pm 2 caps PO QID 30 days 240 caps 6RF To carbidopa-levodopa 61.25-245 mg ER (Rytary) Order increased to: Rytary 61. 25-245mg- 2 caps QID at 5:30am, 10am, 2:30pm, 7pm, and 1 cap daily at 10pm. 30 days 270 caps 6RF Refilled carbidopa-levodopa 23.75-95 mg ER (Rytary) 1 caps at 05:30, 1000, 1430, and 22:00 orally; 90 days 360 caps 6RF Coding Level of Care Code Est Pt Level 4 (63234) Diagnoses Parkinson's disease with dyskinesia G20.B1 Orthostatic hypotension dysautonomic syndrome I95.1 Mood disorder F39 MCI (mild cognitive impairment) G31.84
[2023-09-17 13:12] VITALS: BP 170/98; PULSE 75; RESP 16; O2SAT 98; BMI 23.4
== END 2023-09-17 13:47 | disposition home or self-care (01) ==
PROVIDERS: PCP Family Medicine; Visit Provider Nurse Practitioner Family
DX: G20.B1 Parkinson's disease with dyskinesia, without mention of fluctuations (principal); I95.1 Orthostatic hypotension; F39 Unspecified mood [affective] disorder; G31.84 Mild cognitive impairment of uncertain or unknown etiology
CPT/HCPCS: 99214

== ENCOUNTER → 2023-09-17 13:02 | Outpatient (BNVA) | payer MEDICARE, MEDICAID, SELFPAY | PROVIDERS: PCP Family Medicine; Visit Provider Nurse Practitioner Family | DX: I95.1 Orthostatic hypotension (principal); G20.B1 Parkinson's disease with dyskinesia, without mention of fluctuations; F39 Unspecified mood [affective] disorder; G31.84 Mild cognitive impairment of uncertain or unknown etiology | CPT/HCPCS: 99212 ==

== ENCOUNTER 2023-10-14 11:32 | Outpatient (AMB) | payer MEDICARE, MEDICAID, SELFPAY ==
--- NOTE | 2023-10-14 11:35 | HO.NEPHOV ---
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 He was accompanied by his [facility]it[facility] staff. He is known to have diabetes but denies any retinopathy or diabetic neuropathy. He has history of hypertension and has been on metoprolol, lisinopril and hydralazine in the past he had been having multiple episodes of syncope recently and his hydralazine had been discontinued at that time. He continues to be on metoprolol and lisinopril. His orthostatic symptoms were happening more so when he stands up from sitting or lying down positions. He did not have any chest pain or palpitation or wanting symptoms preceding the event. Ever since his hydralazine has been discontinued he feels remarkably better. He denies fever, chest pain, shortness of breath, palpitation, pedal edema or urinary symptoms. He feels his Parkinson's disease is under good control. [facility] Medical History (Updated 09/17/23 @ 14:05 by GRZEGORZ Cee) DVT (deep venous thrombosis) Diabetes Parkinsons Surgical History No pertinent past surgical history Social History Alcohol intake: never Patient Tobacco Use Status: Never used Tobacco Physical Exam Vital Signs: Last Vital Signs Pulse 84 10/14/23 11:38 BP 140/80 H 10/14/23 11:38 Pulse Ox 98 10/14/23 11:38 Oxygen Delivery Method Room Air 10/14/23 11:38 BMI result Body Mass Index 23.4 Const General: comfortable and no acute distress HEENT Head: Yes normocephalic Mouth: Normal oral and palatal mucosa present Eyes EOM: EOMs intact bilaterally Neck Neck: Yes supple Resp Auscultation: clear to auscultation bilaterally Cardio Jugular venous distension: no JVD Rate: regular rate GI Palpation (GI): Soft to palpation Auscultation: normal bowel sounds General: Yes no CVA tenderness Back/Spine/Pelvis Back: no CVA tenderness Skin General skin exam: no rashes or lesions noted Neuro General: moves all extremities Extrem General: Yes no pedal edema Results Reviewed Nephrology Results: No Data to Display Assessment & Plan Assessment & Plan (1) CKD (chronic kidney disease) stage 3, GFR 30-59 ml/min: Code(s): N18.30 - Chronic kidney disease, stage 3 unspecified Category: Medical Qualifiers: Chronic kidney disease stage 3 subtype: stage 3a (GFR 45-59) Qualified Code(s): N18.31 - Chronic kidney disease, stage 3a (2) HTN (hypertension): Code(s): I10 - Essential (primary) hypertension Category: Medical Qualifiers: Hypertension type: primary hypertension Qualified Code(s): I10 - Essential (primary) hypertension Plan Kirk is a diabetic and hypertensive. He is known to have CKD. He has Parkinson's disease. He has been having dysautonomia, more pronounced when he was taking hydralazine. It had been discontinued and he remains on lisinopril and metoprolol. We should do an echocardiogram, Holter monitor or loop recorder for workup completion, if not already done. If he continues to have symptom he could be a candidate for midodrine, Florinef or Droxidopa. He is well hydrated clinically and is not tachycardic. He is also on oxybutynin which he should take orally at bedtime. I did not make any changes today. All his questions were answered. Further management is pending evolving data. Orders: Orders Cortisol Random Today I10 - Essential (primary) hypertension, N18.31 - Chronic kidney disease, stage 3a Parathyroid Hormone Intact Today I10 - Essential (primary) hypertension, N18.31 - Chronic kidney disease, stage 3a Phosphorus Today I10 - Essential (primary) hypertension, N18.31 - Chronic kidney disease, stage 3a Creatinine Today I10 - Essential (primary) hypertension, N18.31 - Chronic kidney disease, stage 3a Vitamin D 25-OH Total Today I10 - Essential (primary) hypertension, N18.31 - Chronic kidney disease, stage 3a Blood Urea Nitrogen Today I10 - Essential (primary) hypertension, N18.31 - Chronic kidney disease, stage 3a Electrolytes Today I10 - Essential (primary) hypertension, N18.31 - Chronic kidney disease, stage 3a Calcium Today I10 - Essential (primary) hypertension, N18.31 - Chronic kidney disease, stage 3a Coding Level of Care Code Est Pt Level 4 (55208) Diagnoses Stage 3a chronic kidney disease N18.31 Chronic kidney disease stage 3 subtype: stage 3a (GFR 45-59) Primary hypertension I10 Hypertension type: primary hypertension
[2023-10-14 11:38] VITALS: BP 140/80; PULSE 84; O2SAT 98; BMI 23.4
== END 2023-10-14 11:57 | disposition home or self-care (01) ==
PROVIDERS: PCP Family Medicine; Visit Provider Internal Medicine Nephrology
DX: N18.31 Chronic kidney disease, stage 3a (principal); I10 Essential (primary) hypertension
CPT/HCPCS: 99214

== ENCOUNTER → 2023-10-14 11:32 | Outpatient (BNVA) | payer MEDICARE, MEDICAID, SELFPAY | PROVIDERS: PCP Family Medicine; Visit Provider Internal Medicine Nephrology | DX: I12.9 Hypertensive chronic kidney disease with stage 1 through stage 4 chronic kidney disease, or unspecified chronic kidney disease (principal); N18.31 Chronic kidney disease, stage 3a; G20.A1 Parkinson's disease without dyskinesia, without mention of fluctuations | CPT/HCPCS: 99212 ==

== ENCOUNTER → 2024-04-15 13:03 | Outpatient (BNVA) | payer MEDICARE, MEDICAID, SELFPAY | PROVIDERS: PCP Family Medicine; Visit Provider Nurse Practitioner Family | DX: G20.B1 Parkinson's disease with dyskinesia, without mention of fluctuations (principal); G31.84 Mild cognitive impairment of uncertain or unknown etiology; I95.1 Orthostatic hypotension; F39 Unspecified mood [affective] disorder | CPT/HCPCS: 99212 ==

== ENCOUNTER 2024-04-22 14:56 | Outpatient (REF) | payer MEDICARE, MEDICAID, SELFPAY ==
[2024-04-22 15:22] LABS: MANUAL DIFF FLAG NO
[2024-04-22 15:50] LABS: Basophils Percent Auto 0.4 % (0-2); Eosinophils Absolute Auto 0.2 X10*3/uL (0.0-0.4); Eosinophils Percent Auto 2.3 % (0-4); Hematocrit 43.5 % (42.0-52.0); Hemoglobin 14.7 g/dl (14.0-18.0); Imm Gran Abs Auto 0.04 X10*3/uL (0.00-0.03); Imm Gran Pct Auto 0.5 % (0.0-0.4); Lymphocytes Absolute Auto 1.3 X10*3/uL (1.2-4.9); Lymphocytes Percent Auto 16.7 % (20-40); Mean Corpuscular HGB Conc 33.8 g/dl (31.0-36.0); Mean Corpuscular Volume 85.8 fL (80.0-98.0); Mean Platelet Volume 10.6 fL (9.4-12.4); Monocytes Absolute Auto 0.6 X10*3/uL (0.1-1.2); Monocytes Percent Auto 7.2 % (2-11); Neutrophils Absolute Auto 5.6 x10*3/uL (2.0-8.3); Neutrophils Percent Auto 72.9 % (45-73); Platelet Count 193 X10*3/uL (160-400); Red Blood Count 5.07 X10*6/uL (4.60-5.80); White Blood Count 7.7 X10*3/uL (4.8-10.8)
[2024-04-22 17:06] LABS: Parathyroid Hormone Intact 72.7 pg/mL (8.7-77.1)
[2024-04-22 17:19] LABS: Cortisol Random 10.5 ug/dL
[2024-04-22 17:43] LABS: Anion Gap 13 (12-20); Blood Urea Nitrogen 19 mg/dL (9-16); Calcium 9.4 mg/dL (8.4-10.2); Carbon Dioxide 26 mmol/L (22-29); Chloride 105 mmol/L (96-108); Estimated Glomerular Filt Rate > 60; Potassium 4.5 mmol/L (3.3-5.1); Sodium 139 mmol/L (135-145)
[2024-04-22 18:08] LABS: Vitamin D 25-OH Total 27.8 ng/mL (>30)
== END 2024-04-22 14:57 | disposition home or self-care (01) ==
LOC: HO.LAB 14:56
PROVIDERS: PCP Family Medicine; Visit Provider Internal Medicine Nephrology
DX: I10 Essential (primary) hypertension (principal); N18.31 Chronic kidney disease, stage 3a
CPT/HCPCS: 36415; 80051; 82306; 82310; 82533; 82565; 83970; 84100; 84520; 85025

== ENCOUNTER 2024-09-16 13:13 | Outpatient (BNV) | payer MEDICARE, MEDICAID, SELFPAY | END 2024-09-17 07:00 | PROVIDERS: Admitting Provider Psychiatry & Neurology Psychiatry; Visit Provider Internal Medicine | DX: Z13.6 Encounter for screening for cardiovascular disorders (principal) | CPT/HCPCS: 93010 ==

== ENCOUNTER 2024-09-16 13:13 | Outpatient (BNV) | payer MEDICARE, MEDICAID, SELFPAY | END 2024-09-16 21:08 | PROVIDERS: Admitting Provider Psychiatry & Neurology Psychiatry; Visit Provider Radiology Diagnostic Radiology | DX: R10.11 Right upper quadrant pain (principal) | CPT/HCPCS: 76705 ==

== ENCOUNTER 2024-09-16 13:13 | Inpatient (IN) | payer MEDICARE, MEDICAID, SELFPAY ==
--- NOTE | ~2024-09-16 | US_ITS ---
CLINICAL HISTORY: RUQ pain US abdomen limited Comparison: None provided Findings: The visualized pancreas is normal. The aorta and inferior vena cava are normal caliber. The liver is normal in size and echotexture. There is no intrahepatic bile duct dilatation. The common duct is 2 mm in diameter. The gallbladder is normal. There is no sonographic Motley sign. The main portal vein is antegrade. The right kidney is 10.9 cm in length. No ascites. IMPRESSION: 1. Limited exam due to overlying bowel gas. 2. No cholelithiasis or definite sonographic findings to suggest acute cholecystitis. 3. Additional findings as above. This document has been electronically signed by: Sumit Field MD on 09/18/2024 01:23:05
[2024-09-16 16:01] VITALS: BMI 20.6
--- NOTE | 2024-09-16 17:10 | PC.NURSE ---
While out in the milieu after dinner he was seen attempting to void in a cup, he was redirected.
--- NOTE | 2024-09-16 17:13 | PC.ADMIT ---
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 He is oreintated to self. He was just recently discharged form [facility] after having a fall and when he returned to the intermediate he was placed on a 1:1. While on his 1:1 he attempted to get up and when the staff redirected him he became aggressive. Normally when he gets up set he with throw himself on the floor and bang his head. Due to his parkinsons he has motor skills issues. He normally is able to dress himself and tend to his ADL's. He has refused to disclose why he got mad and when asked about his intermediate he expressed he didn't want to discuss. He has some bruises on his arms other phillips skin in intact.
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
[2024-09-16 20:00] VITALS: BP 114/77; PULSE 79; RESP 18; TEMP 36.6; O2SAT 98
--- NOTE | 2024-09-16 20:44 | PM.IMHP ---
History of Present Illness Date of Service: 09/16/24 Attending physician on admission: Paul Torres Chief Complaint: Came from his long-term after becoming aggresive. Kirk Stapleton is a 73 years old man with past medical history significant for Parkinson disease with dyskinesia, CKD stage 3, essential hypertension, DVT, obstructive sleep apnea and mood disorder was admitted to [facility] after he became aggressive at his long-term. It seems like he sustained a fall banging his head. HPI was difficult to obtain directly from the patient due to his current mental state. He was able to answer some of my questions appropriately. He is complaining of pain in the right upper quadrant. Denied nausea, vomiting or diarrhea. He thinks that the pain started 4 hours ago. He denied chest pain or shortness on breath. His vital signs are normal. Review of Systems Review of Systems: Yes Unobtainable due to mental status [facility] Medical History (Updated 09/16/24 @ 21:15 by Paul Torres MD) DVT (deep venous thrombosis) Diabetes Parkinsons Surgical History No pertinent past surgical history Social History Household Members: Other Housing: Other Do you presently have visiting nurse or other home services: No Alcohol intake: never Patient Tobacco Use Status: Never used Tobacco Advance Directives: No Advance Directives Information Provided: Yes Do you have a plan to hurt others: No Plan Recently lost weight without trying: Unsure Poor oral hygiene: Yes Meds Allergies Allergy/AdvReac Type Severity Reaction Status Date / Time morphine Allergy Unknown Verified 04/15/24 13:13 Active Medications: Current Medications Acetaminophen (Acetaminophen 325 Mg Tablet) 650 mg PO Q6H PRN PRN Reason: Headache/Pain, Scale 1-10 Al Hydroxide/Mg Hydroxide (Magnesium Hydrox/Alum Hydrox 30 Ml Oral.Susp) 30 ml PO Q6H PRN PRN Reason: Heartburn/Nausea Apixaban (Apixaban 5 Mg Tablet) 5 mg PO BID DRE Clozapine (Clozapine 25 Mg Tablet) 25 mg PO BEDTIME DRE Gabapentin (Gabapentin 400 Mg Capsule) 400 mg PO TID DRE Glipizide (Glipizide 5 Mg Tablet) 5 mg PO DAILY DRE Lisinopril (Lisinopril 2.5 Mg Tablet) 2.5 mg PO DAILY DRE; Protocol Magnesium Hydroxide (Milk Of Magnesia 30 Ml Oral.Susp) 30 ml PO DAILY PRN PRN Reason: Constipation Multivitamins/Vitamin C (Multivitamin Tablet) 1 tab PO DAILY DRE Pt Own (Carbidopa- Levodopa [Rytary] 23 .75-95 Mg Capsule, Extended Releas 1 cap PO QID@0530,1000,1430,2200 DRE Pt Own (Carbidopa- Levodopa [Rytary] 61 .25-245 Mg Capsule, Extended Relea 2 cap PO QID@0530,1000,1430,1900 DRE Pt Own (Pimavanserin [Nuplazid] 34 Mg Capsule) 34 mg PO DAILY DRE Pt Own (Carbidopa- Levodopa [Rytary] 61 .25-245 Mg Capsule, Extended Relea 1 cap PO DAILY@2200 DRE Oxybutynin Chloride (Oxybutynin Chloride 5 Mg Tablet) 5 mg PO DAILY DRE Polyethylene Glycol (Polyethylene Glycol 3350 17 Gm Powd.Pack) 17 gm PO DAILY DRE Senna (Sennosides 8.6 Mg Tablet) 8.6 mg PO BEDTIME DRE Tolterodine Tartrate (Tolterodine Tartrate La 4 Mg Cap.Er.24h) 4 mg PO DAILY DRE Trazodone HCl (Trazodone Hcl 50 Mg Tablet) 50 mg PO BEDTIME MRX1 PRN PRN Reason: Insomnia Home Medications ?Medication ?Instructions ?Recorded ?Confirmed ?Last Taken ?Type benzonatate 100 mg capsule 100 mg PO TID PRN Cough 10/12/20 04/15/24 Unknown History gabapentin 400 mg capsule 1 cap PO TID 10/12/20 09/16/24 10/12/20 History (Neurontin) multivitamin 1 tab PO QAM 10/12/20 09/16/24 10/12/20 History sennosides 8.6 mg tablet (senna) 17.2 mg PO DAILY PRN Constipation 10/12/20 04/15/24 Unknown History rosuvastatin 10 mg tablet 10 mg PO BEDTIME 07/04/21 04/15/24 Unknown History clozapine 25 mg tablet 25 mg PO BEDTIME 01/02/22 09/16/24 09/16/24 History apixaban 5 mg tablet (Eliquis) 5 mg PO BID 04/02/22 09/16/24 Unknown History magnesium oxide 400 mg (241.3 mg 200 mg PO DAILY 04/02/22 04/15/24 Unknown History magnesium) tablet acetaminophen 325 mg capsule 650 mg PO Q6H PRN 07/11/22 04/15/24 Unknown History (Tylenol) glimepiride 2 mg tablet 2 mg PO DAILY 05/26/23 09/16/24 Unknown History metoprolol succinate 25 mg 25 mg PO DAILY 06/17/23 04/15/24 Unknown History tablet,extended release 24 hr lisinopril 5 mg tablet 2.5 mg PO DAILY 10/14/23 09/16/24 Unknown History Miralax 17 g PO DAILY 09/16/24 09/16/24 Unknown History carbidopa ER 23.75 mg-levodopa 95 See Rx Instructions .Route .COMPLEX 09/16/24 09/16/24 Unknown History mg capsule,extended release (Rytary) magnesium oxide 200 mg PO DAILY 09/16/24 09/16/24 Unknown History oxybutynin chloride 5 tab PO DAILY 09/16/24 09/16/24 Unknown History pimavanserin 34 mg PO 09/16/24 09/16/24 09/15/24 14:00 History senna 8.6 tab PO BEDTIME 09/16/24 09/16/24 Unknown History tolterodine 4 mg PO DAILY 09/16/24 09/16/24 Unknown History Physical Exam Vital Signs and Narrative: Vital Signs: Last Vital Signs Temp 97.8 F 09/16/24 20:00 Pulse 79 09/16/24 20:00 Resp 18 09/16/24 20:00 BP 114/77 09/16/24 20:00 Pulse Ox 98 09/16/24 20:00 O2 Del Method Room Air 09/16/24 20:00 BMI result Body Mass Index 20.6 Constitutional - Awake and Alert, No apparent distress. Sitting in the living room watching TV. HEENT - Atraumatic head, pupils equally round. Heart - S1S2, RRR, No edema Lungs - Normal lung expansion, Normal respiratory effort, No respiratory distress, CTA bilaterally Abdomen - ND; +BS; right upper quadrant tenderness. No rebound or guarding Extremities - No edema. No tenderness. Musculoskeletal - Generalized rigidity. Shuffling gait. Skin - Warm/Dry Neurological - Alert & oriented x3. Lip smacking, tongue protrusion, grimancing and jaw movements. Psychological - Depressed affect Assessment and Plan (1) Mood disorder: Status: Acute (2) Parkinsonism: Qualifiers: Parkinsonism type: Parkinson's disease Dyskinesia presence: with dyskinesia Fluctuating manifestations: unspecified whether manifestations fluctuate Qualified Code(s): G20.B1 - Parkinson's disease with dyskinesia, without mention of fluctuations Status: Acute (3) HTN (hypertension): Qualifiers: Hypertension type: primary hypertension Qualified Code(s): I10 - Essential (primary) hypertension Status: Acute Plan Kirk Stapleton is a 73 y/o man admitted with: Mental disorder. Treatment per psychiatric service. Right upper quadrant pain. No nausea, vomiting or diarrhea. Check LFTs and abdominal ultrasound. Low-dose APAP prn for pain. s/p fall. Check vitamin D level. Consider PT evaluation. Parkinson's disease. Continue carbidopa. History of DVT. Continue Eliquis. Essential hypertension. Continue lisinopril. Type 2 diabetes mellitus. Continue glimepiride. BG checks before meals at bedtime. Insulin sliding scale. Diabetic diet. Check Hgb A1c. History CKD, last renal function March 2024 is normal. Check BNP. Hx of sleep apnea. Did not tolerate CPAP therapy. HFpEF. No acute symptoms. Lungs are clear. Hyperactive bladder. Continue tolterodine or alternative. DVT prophylaxis: On Eliquis Code status: Full Quality Stroke Does the patient have a stroke diagnosis?: No VTE Prior VTE?: No VTE Risk Level:: Medical - moderate - high VTE Device Contraindication: Treatment Not Indicated VTE Drug Contraindication: N/A - Med Ordered
[2024-09-16] MEDS: CARBIDOPA PO ×2 (21:27→22:52)
[2024-09-16] MEDS: LEVODOPA PO ×2 (21:27→22:52)
[2024-09-16 21:37] LABS: Glucose, Whole Blood 233 mg/dL (60-115)
[2024-09-16] MEDS: CARBIDOPA LEVODOPA 1 EACH PO (22:50)
[2024-09-17] MEDS: CARBIDOPA PO ×5 (05:59→21:57)
[2024-09-17] MEDS: CARBIDOPA LEVODOPA 1 EACH PO ×4 (05:59→21:56)
[2024-09-17] MEDS: LEVODOPA PO ×5 (05:59→21:57)
[2024-09-17 06:36] LABS: Glucose, Whole Blood 151 mg/dL (60-115)
--- NOTE | 2024-09-17 07:00 | ECG_ITS ---
Test Reason : Routine, hx of CHF Blood Pressure : */* mmHG Vent. Rate : 69 BPM Atrial Rate : 69 BPM P-R Int : 142 ms QRS Dur : 104 ms QT Int : 418 ms P-R-T Axes : 39 -1 28 degrees QTcB Int : 447 ms Normal sinus rhythm Normal ECG When compared with ECG of 12-Oct-2020 20:28, Nonspecific T wave abnormality no longer evident in Lateral leads Referred By: Paul Torres Electronically Signed By: ARIANA WIN
[2024-09-17 07:48] LABS: Neut%MD 69.1 %; WBCANC 8.5 X10*3/uL
[2024-09-17 08:00] VITALS: BP 127/76; PULSE 60; RESP 17; TEMP 36.4; O2SAT 95
[2024-09-17 08:08] LABS: Hemoglobin A1C 184.6852 umol/L; Total Hemoglobin (HGBA1C) 3236.8714 umol/L
[2024-09-17 08:10] LABS: Alanine Aminotransferase 6 U/L (0-40); Albumin Level 3.4 g/dL (3.5-5.0); Alkaline Phosphatase 85 U/L (39-117); Anion Gap 11 (12-20); Aspartate Amino Transferase 37 U/L (5-37); Blood Urea Nitrogen 18 mg/dL (9-16); Calcium 8.5 mg/dL (8.4-10.2); Carbon Dioxide 25 mmol/L (22-29); Chloride 107 mmol/L (96-108); Cholesterol 84 mg/dL (<200); Creatinine Clr Calc Pharmacy 87.9; Estimated Glomerular Filt Rate > 60; HDL Cholesterol 29 mg/dL (>40); Magnesium 1.9 mg/dL (1.6-2.6); Potassium 3.9 mmol/L (3.3-5.1); Sodium 139 mmol/L (135-145); Total Protein 5.5 g/dL (6.5-8.0); Triglycerides 45 mg/dL (<150)
[2024-09-17 08:25] LABS: Thyroid Stimulating Hormone 0.60 uIU/mL (0.32-4.0)
[2024-09-17 08:38] LABS: Folate 13.7 ng/mL (> or = 4.0); Vitamin B12 1032 pg/mL (200-900)
[2024-09-17] MEDS: PIMAVANSERIN 34 MG 34 EACH PO (08:42)
[2024-09-17 11:25] LABS: Glucose, Whole Blood 155 mg/dL (60-115)
--- NOTE | 2024-09-17 11:32 | HO.PSYADMNOT ---
HPI Date of Service: 09/17/24 Chief Complaint: Delusional D/O Unspec Anxiety D/O Etc Sources of Information: patient interviewed, chart reviewed and crisis/core team assessment reviewed Additional Sources of Information: Kalee- HCP and Byron- son Garry- airport duty manager of [employer] Subjective Notes: Smart Warning and Conditional Voluntary Healthcare Proxy: Yes Narrative: Mr. Stapleton is a 73 year-old male with hx of Parkinson's and Parkinson's dementia. He was brought to [facility] due to increase combative behaviors and paranoid delusions. Pt resides at for past 6 years. On the unit, pt presents as calm. He is noted to have chorea like movement- dyskenisia most likely secondary to levodopa/carbidopa side effect. He is not oriented to place (tells this filing writer he is at home), nor month nor year. He is not able to provide any meaningful information as to what brought him here or otherwise. He does not present with s/s of paranoid delusions in that he denies any fear of someone trying to harm him or feeling unsafe here. Collateral information from Garry (airport duty manager at the ) who reports in the past 3-4 months pt has had increase falls, this seems to coincide when he started to show dyskenisia. Garry reports he was recently admitted at [facility] due to frequent falls and came back day or so prior to being sent back to the hospital for combative behaviors. Garry reports when he came back of the hospital he was deemed to be a one to one and in a wheelchair. When pt attempted to get up and staff redirected him was when pt became aggressive. Garry reports he has not been aggressive in the past. It does appear current impairments in orientation have been going on for a year or so. This filing writer also spoke with pt's , Kalee and son Mark who reports pt has been having multiple falls and this is their main concern. Neither nor son have seen pt in very long time so they can't comment as to changes in gait instability or onset of dyskenisia. Past Psychiatric History: Inpt: none prior OP: [facility] Neurologist: Dr. Tayler Joshua Past medication trials: nuplazid, clozapine. Medical Evaluation Reviewed: Yes [facility] Medical History (Updated 09/18/24 @ 17:00 by Dari Waldrop NP) DVT (deep venous thrombosis) Diabetes Parkinsons Surgical History No pertinent past surgical history Family History: none Social History: . he has one son Mark. has been in retirement for the past 6 years. Substance History: none Trauma History: none Diagnostics Vital Signs (24Hr): Vital Signs - 24 hr 09/16/24 20:00 09/17/24 08:00 Temperature 97.8 F 97.5 F Pulse Rate 79 60 Respiratory Rate 18 17 Blood Pressure 114/77 127/76 Pulse Oximetry 98 95 Oxygen Delivery Method Room Air Room Air BMI result Body Mass Index 20.6 Labs 09/17/24 07:17 Labs: Laboratory Results - last 48 hr 09/16/24 09/17/24 09/17/24 21:30 06:30 07:17 Absolute Neuts (auto) 5.9 Sodium 139 Potassium 3.9 Chloride 107 Carbon Dioxide 25 Anion Gap 11 L BUN 18 H Creatinine 0.73 Estim Creat Clear Calc 87.9 Estimated GFR > 60 POC Glucose 233 H 151 H Random Glucose 164 H Estimat Average Glucose 166 Hemoglobin A1c % 7.4 H Calcium 8.5 D Magnesium 1.9 Total Bilirubin 0.6 AST 37 ALT 6 Alkaline Phosphatase 85 Total Protein 5.5 L Albumin 3.4 L Triglycerides 45 Cholesterol 84 LDL Cholesterol, Calc 46 HDL Cholesterol 29 L Vitamin B12 1032 H 25-OH Vitamin D Total 26.1 L Folate 13.7 TSH 0.60 09/17/24 11:21 Absolute Neuts (auto) Sodium Potassium Chloride Carbon Dioxide Anion Gap BUN Creatinine Estim Creat Clear Calc Estimated GFR POC Glucose 155 H Random Glucose Estimat Average Glucose Hemoglobin A1c % Calcium Magnesium Total Bilirubin AST ALT Alkaline Phosphatase Total Protein Albumin Triglycerides Cholesterol LDL Cholesterol, Calc HDL Cholesterol Vitamin B12 25-OH Vitamin D Total Folate TSH Meds/Allergies Meds Home Medications ?Medication ?Instructions ?Recorded ?Confirmed ?Type benzonatate 100 mg capsule 100 mg PO TID PRN Cough 10/12/20 09/17/24 History gabapentin 400 mg capsule 1 cap PO TID 10/12/20 09/16/24 History (Neurontin) multivitamin 1 tab PO QAM 10/12/20 09/16/24 History sennosides 8.6 mg tablet (senna) 17.2 mg PO DAILY PRN Constipation 07/23/21 06/28/25 History rosuvastatin 10 mg tablet 10 mg PO BEDTIME 07/04/21 09/17/24 History clozapine 25 mg tablet 25 mg PO BEDTIME 01/02/22 09/16/24 History apixaban 5 mg tablet (Eliquis) 5 mg PO BID 04/02/22 09/16/24 History magnesium oxide 400 mg (241.3 mg 200 mg PO DAILY 04/02/22 09/17/24 History magnesium) tablet acetaminophen 325 mg capsule 650 mg PO Q6H PRN Pain 07/11/22 09/17/24 History (Tylenol) glimepiride 2 mg tablet 2 mg PO DAILY 05/26/23 09/16/24 History metoprolol succinate 25 mg 25 mg PO DAILY 06/17/23 09/17/24 History tablet,extended release 24 hr lisinopril 5 mg tablet 2.5 mg PO DAILY 10/14/23 09/16/24 History Miralax 17 g PO DAILY 09/16/24 09/16/24 History carbidopa ER 23.75 mg-levodopa 95 See Rx Instructions .Route .COMPLEX 09/16/24 09/16/24 History mg capsule,extended release (Rytary) magnesium oxide 200 mg PO DAILY 09/16/24 09/16/24 History oxybutynin chloride 5 tab PO DAILY 09/16/24 09/16/24 History pimavanserin 34 mg PO 09/16/24 09/16/24 History senna 8.6 tab PO BEDTIME 09/16/24 09/16/24 History tolterodine 4 mg PO DAILY 09/16/24 09/16/24 History Allergies Allergies Allergy/AdvReac Type Severity Reaction Status Date / Time morphine Allergy Unknown Verified 04/15/24 13:13 Mental Status Exam Mental Status Exam Narrative: Appearance: wearing hospital gown, fair hygiene, in NAD. chorea movements of the trunk, and face Behavior: cooperative Psychomotor: chorea movement Speech: mumbles, difficult to understand at times, minimally spontaneous TP: poverty of thought TC: thinks he is at home Mood: ok Affect: grimacing dyskenisia SI: none HI: none VH/AH: no overt signs Delusions: no overt signs Insight/judgment: very impaired x 2. memory/cog: alert, not oriented to place, month nor situation. severe impairments in cognition/memory. Assessment & Plan Assessment & Plan (1) Parkinson's disease with dyskinesia: Status: Acute Code(s): G20.B1 - Parkinson's disease with dyskinesia, without mention of fluctuations (2) Dementia due to Parkinson's disease with behavioral disturbance: Status: Acute Code(s): G20.A1 - Parkinson's disease without dyskinesia, without mention of fluctuations; F02.818 - Dementia in other diseases classified elsewhere, unspecified severity, with other behavioral disturbance Plan Mr. Stapleton is a 73 year-old male with hx of Parkinson's with dyskenisia who was sent to [facility] due to combative behaviors and paranoid delusions. It appears pt has been having more frequent falls. He lives at a retirement. He became combative when redirected to stay in wheelchair. On the unit, pt presents with severe cognitive/memory impairments and not able to provide much information as to why he is here. He thinks he is at home. He has no recollection about aggression that led to this admission. He also presents with chorea-like movement s/s levodopa/carbidopa which seems to contribute to recent falls. He does not present with paranoid delusions. Discussed with HCP, Kalee increase of clozaril may help with underlying delusions and may decrease some of dyskenisia. Will coordinate care with his OP neurologist and OP psych provider. PLAN 1. Admit to S1, CV by HCP 2. increase clozapine 25mg po BID. contiue nuplazid, but consider keeping only clozapine. 3. obtain collateral information 4. will check ortho VS 5. aftercare planning. Patient educated on: diagnosis (HCP) and medication risk/benefits Reason for continued inpatient stay Substantial Risk for: harm to others and inability to function Statement Statement: I have reviewed the history and physical and performed a pertinent examination on my patient. No changes have occurred unless specified. If the History and Physical was not performed prior to admission, the Hospitalist's service will be consulted for completing the admission physical. Time Spent With Patient Time: Total time managing care of this patient today ____ minutes.
[2024-09-17 16:33] LABS: Glucose, Whole Blood 118 mg/dL (60-115)
--- NOTE | 2024-09-17 19:22 | P.PNPSI_ITS ---
Subjective Subjective Date of Service: 09/17/24 Reason For Visit: Delusional D/O Unspec Anxiety D/O Etc Subjective Notes: Conditional Voluntary Healthcare Proxy: Yes Interim History: Pt slept most of the night. pronounced chorea movements affecting his gait. speech minimally spontaneous. not oriented to situation, month nor year. advanced parkinson's dementia. no combative behaviors. pending coordination of care with neurologist to adjust levo/dopa Review of Systems Review of Systems Yes Unobtainable due to mental status Mental Status Exam Mental Status Exam Narrative: Appearance: wearing hospital gown, fair hygiene, in NAD. chorea movements of the trunk, and face Behavior: cooperative Psychomotor: chorea movement Speech: mumbles, difficult to understand at times, minimally spontaneous TP: poverty of thought TC: thinks he is at home Mood: ok Affect: grimacing dyskenisia SI: none HI: none VH/AH: no overt signs Delusions: no overt signs Insight/judgment: very impaired x 2. memory/cog: alert, not oriented to place, month nor situation. severe impairments in cognition/memory. Diagnostics Vital Signs (24Hr): Vital Signs - 24 hr 09/16/24 20:00 09/17/24 08:00 Temperature 97.8 F 97.5 F Pulse Rate 79 60 Respiratory Rate 18 17 Blood Pressure 114/77 127/76 Pulse Oximetry 98 95 Oxygen Delivery Method Room Air Room Air BMI result Body Mass Index 20.6 Labs 09/17/24 07:17 Labs: Laboratory Results - last 48 hr 09/16/24 09/17/24 09/17/24 21:30 06:30 07:17 Absolute Neuts (auto) 5.9 Sodium 139 Potassium 3.9 Chloride 107 Carbon Dioxide 25 Anion Gap 11 L BUN 18 H Creatinine 0.73 Estim Creat Clear Calc 87.9 Estimated GFR > 60 POC Glucose 233 H 151 H Random Glucose 164 H Estimat Average Glucose 166 Hemoglobin A1c % 7.4 H Calcium 8.5 D Magnesium 1.9 Total Bilirubin 0.6 AST 37 ALT 6 Alkaline Phosphatase 85 Total Protein 5.5 L Albumin 3.4 L Triglycerides 45 Cholesterol 84 LDL Cholesterol, Calc 46 HDL Cholesterol 29 L Vitamin B12 1032 H 25-OH Vitamin D Total 26.1 L Folate 13.7 TSH 0.60 09/17/24 09/17/24 11:21 16:29 Absolute Neuts (auto) Sodium Potassium Chloride Carbon Dioxide Anion Gap BUN Creatinine Estim Creat Clear Calc Estimated GFR POC Glucose 155 H 118 H Random Glucose Estimat Average Glucose Hemoglobin A1c % Calcium Magnesium Total Bilirubin AST ALT Alkaline Phosphatase Total Protein Albumin Triglycerides Cholesterol LDL Cholesterol, Calc HDL Cholesterol Vitamin B12 25-OH Vitamin D Total Folate TSH Medications Medications Current Medications Acetaminophen (Acetaminophen 325 Mg Tablet) 650 mg PO Q6H PRN PRN Reason: Headache/Pain, Scale 1-10 Last Admin: 09/16/24 21:28 Dose: 650 mg Al Hydroxide/Mg Hydroxide (Magnesium Hydrox/Alum Hydrox 30 Ml Oral.Susp) 30 ml PO Q6H PRN PRN Reason: Heartburn/Nausea Apixaban (Apixaban 5 Mg Tablet) 5 mg PO BID [facility] Last Admin: 09/17/24 08:43 Dose: 5 mg Clozapine (Clozapine 25 Mg Tablet) 25 mg PO BEDTIME [facility] Last Admin: 09/16/24 20:58 Dose: 25 mg Clozapine (Clozapine 25 Mg Tablet) 25 mg PO DAILY [facility] Dextrose (Dextrose 50 % 25 Gm/50 Ml Syringe) 25 gm IVPUSH Q15M PRN; Protocol PRN Reason: per Hypoglycemia Standing Ord. Gabapentin (Gabapentin 400 Mg Capsule) 400 mg PO TID [facility] Last Admin: 09/17/24 14:05 Dose: 400 mg Glipizide (Glipizide 5 Mg Tablet) 5 mg PO DAILY [facility] Last Admin: 09/17/24 08:43 Dose: 5 mg Glucose (Glucose Gel 15 Gm Gel..Gram.) 15 gm PO Q15M PRN; Protocol PRN Reason: per Hypoglycemia Standing Ord. Insulin Human Lispro (Insulin Lispro 100 Unit/Ml 3 Ml Vial) 0 unit SUBCUT QIDACHS [facility]; Protocol Last Admin: 09/17/24 16:30 Dose: Not Given Lisinopril (Lisinopril 2.5 Mg Tablet) 2.5 mg PO DAILY [facility]; Protocol Last Admin: 09/17/24 08:43 Dose: 2.5 mg Magnesium Hydroxide (Milk Of Magnesia 30 Ml Oral.Susp) 30 ml PO DAILY PRN PRN Reason: Constipation Multivitamins/Vitamin C (Multivitamin Tablet) 1 tab PO DAILY [facility] Last Admin: 09/17/24 08:43 Dose: 1 tab Pt Own (Carbidopa- Levodopa [Rytary] 23 .75-95 Mg Capsule, Extended Releas 1 cap PO QID@0530,1000,1430,2200 [facility] Last Admin: 09/17/24 14:05 Dose: 1 cap Pt Own (Carbidopa- Levodopa [Rytary] 61 .25-245 Mg Capsule, Extended Relea 2 cap PO QID@0530,1000,1430,1900 [facility] Last Admin: 09/17/24 18:26 Dose: 2 cap Pt Own (Pimavanserin [Nuplazid] 34 Mg Capsule) 34 mg PO DAILY [facility] Last Admin: 09/17/24 08:42 Dose: 34 mg Pt Own (Carbidopa- Levodopa [Rytary] 61 .25-245 Mg Capsule, Extended Relea 1 cap PO DAILY@2200 [facility] Last Admin: 09/16/24 22:52 Dose: 1 cap Oxybutynin Chloride (Oxybutynin Chloride 5 Mg Tablet) 5 mg PO DAILY [facility] Last Admin: 09/17/24 08:44 Dose: 5 mg Polyethylene Glycol (Polyethylene Glycol 3350 17 Gm Powd.Pack) 17 gm PO DAILY [facility] Last Admin: 09/17/24 08:42 Dose: 17 gm Senna (Sennosides 8.6 Mg Tablet) 8.6 mg PO BEDTIME [facility] Last Admin: 09/16/24 20:58 Dose: 8.6 mg Tolterodine Tartrate (Tolterodine Tartrate La 4 Mg Cap.Er.24h) 4 mg PO DAILY [facility] Last Admin: 09/17/24 08:43 Dose: 4 mg Trazodone HCl (Trazodone Hcl 50 Mg Tablet) 50 mg PO BEDTIME MRX1 PRN PRN Reason: Insomnia Allergies Allergies Allergy/AdvReac Type Severity Reaction Status Date / Time morphine Allergy Unknown Verified 04/15/24 13:13 Assessment & Plan Assessment & Plan (1) Parkinson's disease with dyskinesia: Status: Acute Code(s): G20.B1 - Parkinson's disease with dyskinesia, without mention of fluctuations (2) Dementia due to Parkinson's disease with behavioral disturbance: Status: Acute Code(s): G20.A1 - Parkinson's disease without dyskinesia, without mention of fluctuations; F02.818 - Dementia in other diseases classified elsewhere, unspecified severity, with other behavioral disturbance Plan Mr. Stapleton is a 73 year-old male with hx of Parkinson's with dyskenisia who was sent to [facility] due to combative behaviors and paranoid delusions. It appears pt has been having more frequent falls. He lives at a assisted. He became combative when redirected to stay in wheelchair. On the unit, pt presents with severe cognitive/memory impairments and not able to provide much information as to why he is here. He thinks he is at home. He has no recollection about aggression that led to this admission. He also presents with chorea-like movement s/s levodopa/carbidopa which seems to contribute to recent falls. He does not present with paranoid delusions. Discussed with HCP, Kalee increase of clozaril may help with underlying delusions and may decrease some of dyskenisia. Will coordinate care with his OP neurologist and OP psych provider. PLAN 1. Admit to S1, CV by HCP 2. increase clozapine 50mg po BID. contiue nuplazid, but consider keeping only clozapine. 3. obtain collateral information 4. will check ortho VS 5. aftercare planning. Reason for continued inpatient stay Substantial Risk for: inability to function Time Spent With Patient Time: Total time managing care of this patient today ____ minutes.
[2024-09-17 19:42] LABS: Glucose, Whole Blood 253 mg/dL (60-115)
[2024-09-17 19:59] VITALS: BP 159/97; PULSE 84; RESP 18; TEMP 36.6; O2SAT 96
--- NOTE | 2024-09-18 04:42 | PC.NURSE ---
Patient placed on 1:1 staff monitoring r/t increased restlessness and unsteady gait per relationship associate provider Jacky Mc, safety maintained.
[2024-09-18] MEDS: LEVODOPA PO ×5 (05:43→22:45)
[2024-09-18] MEDS: CARBIDOPA LEVODOPA 1 EACH PO ×4 (05:43→22:42)
[2024-09-18] MEDS: CARBIDOPA PO ×5 (05:43→22:45)
[2024-09-18 06:33] LABS: Glucose, Whole Blood 217 mg/dL (60-115)
[2024-09-18 08:00] VITALS: BP 109/59; PULSE 85
[2024-09-18 08:20] LABS: Glucose, Whole Blood 183 mg/dL (60-115)
[2024-09-18 09:27] VITALS: BP 102/57; PULSE 85; RESP 18; TEMP 36.4; O2SAT 99
[2024-09-18] MEDS: PIMAVANSERIN 34 MG 34 EACH PO (09:37)
[2024-09-18 11:02] LABS: Glucose, Whole Blood 141 mg/dL (60-115)
[2024-09-18 14:22] VITALS: BP 184/94; PULSE 74
[2024-09-18 16:34] LABS: Glucose, Whole Blood 232 mg/dL (60-115)
--- NOTE | 2024-09-18 17:02 | P.PNPSI_ITS ---
Subjective Subjective Date of Service: 09/18/24 Reason For Visit: Delusional D/O Unspec Anxiety D/O Etc Subjective Notes: Conditional Voluntary Healthcare Proxy: Yes Interim History: Pt slept most of the night. pronounced chorea movements affecting his gait. speech minimally spontaneous. not oriented to situation, month nor year. advanced parkinson's dementia. no combative behaviors. pending coordination of care with neurologist to adjust levo/dopa Review of Systems Review of Systems Yes Unobtainable due to mental status Mental Status Exam Mental Status Exam Narrative: Appearance: wearing hospital gown, fair hygiene, in NAD. chorea movements of the trunk, and face Behavior: cooperative Psychomotor: chorea movement Speech: mumbles, difficult to understand at times, minimally spontaneous TP: poverty of thought TC: thinks he is at home Mood: ok Affect: grimacing dyskenisia SI: none HI: none VH/AH: no overt signs Delusions: no overt signs Insight/judgment: very impaired x 2. memory/cog: alert, not oriented to place, month nor situation. severe impairments in cognition/memory. Diagnostics Vital Signs (24Hr): Vital Signs - 24 hr 09/17/24 19:59 09/18/24 08:00 09/18/24 09:27 Temperature 97.9 F 97.5 F Pulse Rate 84 85 85 Respiratory Rate 18 18 Blood Pressure 159/97 H 109/59 L 102/57 L Pulse Oximetry 96 99 Oxygen Delivery Method Room Air Room Air 09/18/24 14:22 Temperature Pulse Rate 74 Respiratory Rate Blood Pressure 184/94 H Pulse Oximetry Oxygen Delivery Method BMI result Body Mass Index 20.6 Labs 09/17/24 07:17 Labs: Laboratory Results - last 48 hr 09/16/24 09/17/24 09/17/24 21:30 06:30 07:17 Absolute Neuts (auto) 5.9 Sodium 139 Potassium 3.9 Chloride 107 Carbon Dioxide 25 Anion Gap 11 L BUN 18 H Creatinine 0.73 Estim Creat Clear Calc 87.9 Estimated GFR > 60 POC Glucose 233 H 151 H Random Glucose 164 H Estimat Average Glucose 166 Hemoglobin A1c % 7.4 H Calcium 8.5 D Magnesium 1.9 Total Bilirubin 0.6 AST 37 ALT 6 Alkaline Phosphatase 85 Total Protein 5.5 L Albumin 3.4 L Triglycerides 45 Cholesterol 84 LDL Cholesterol, Calc 46 HDL Cholesterol 29 L Vitamin B12 1032 H 25-OH Vitamin D Total 26.1 L Folate 13.7 TSH 0.60 09/17/24 09/17/24 09/17/24 11:21 16:29 19:36 Absolute Neuts (auto) Sodium Potassium Chloride Carbon Dioxide Anion Gap BUN Creatinine Estim Creat Clear Calc Estimated GFR POC Glucose 155 H 118 H 253 H Random Glucose Estimat Average Glucose Hemoglobin A1c % Calcium Magnesium Total Bilirubin AST ALT Alkaline Phosphatase Total Protein Albumin Triglycerides Cholesterol LDL Cholesterol, Calc HDL Cholesterol Vitamin B12 25-OH Vitamin D Total Folate TSH 09/18/24 09/18/24 09/18/24 06: 08:16 10:59 Absolute Neuts (auto) Sodium Potassium Chloride Carbon Dioxide Anion Gap BUN Creatinine Estim Creat Clear Calc Estimated GFR POC Glucose 217 H 183 H 141 H Random Glucose Estimat Average Glucose Hemoglobin A1c % Calcium Magnesium Total Bilirubin AST ALT Alkaline Phosphatase Total Protein Albumin Triglycerides Cholesterol LDL Cholesterol, Calc HDL Cholesterol Vitamin B12 25-OH Vitamin D Total Folate TSH 09/18/24 16:30 Absolute Neuts (auto) Sodium Potassium Chloride Carbon Dioxide Anion Gap BUN Creatinine Estim Creat Clear Calc Estimated GFR POC Glucose 232 H Random Glucose Estimat Average Glucose Hemoglobin A1c % Calcium Magnesium Total Bilirubin AST ALT Alkaline Phosphatase Total Protein Albumin Triglycerides Cholesterol LDL Cholesterol, Calc HDL Cholesterol Vitamin B12 25-OH Vitamin D Total Folate TSH Medications Medications Current Medications Acetaminophen (Acetaminophen 325 Mg Tablet) 650 mg PO Q6H PRN PRN Reason: Headache/Pain, Scale 1-10 Last Admin: 09/17/24 21:55 Dose: 650 mg Al Hydroxide/Mg Hydroxide (Magnesium Hydrox/Alum Hydrox 30 Ml Oral.Susp) 30 ml PO Q6H PRN PRN Reason: Heartburn/Nausea Apixaban (Apixaban 5 Mg Tablet) 5 mg PO BID [facility] Last Admin: 09/18/24 09:34 Dose: 5 mg Clozapine (Clozapine 25 Mg Tablet) 25 mg PO BEDTIME [facility] Last Admin: 09/17/24 20:24 Dose: 25 mg Clozapine (Clozapine 25 Mg Tablet) 25 mg PO DAILY [facility] Last Admin: 09/18/24 09:34 Dose: 25 mg Dextrose (Dextrose 50 % 25 Gm/50 Ml Syringe) 25 gm IVPUSH Q15M PRN; Protocol PRN Reason: per Hypoglycemia Standing Ord. Gabapentin (Gabapentin 400 Mg Capsule) 400 mg PO TID [facility] Last Admin: 09/18/24 16:43 Dose: 400 mg Glipizide (Glipizide 5 Mg Tablet) 5 mg PO DAILY [facility] Last Admin: 09/18/24 09:33 Dose: 5 mg Glucose (Glucose Gel 15 Gm Gel..Gram.) 15 gm PO Q15M PRN; Protocol PRN Reason: per Hypoglycemia Standing Ord. Insulin Human Lispro (Insulin Lispro 100 Unit/Ml 3 Ml Vial) 0 unit SUBCUT QIDACHS [facility]; Protocol Last Admin: 09/18/24 16:43 Dose: 4 unit Lisinopril (Lisinopril 2.5 Mg Tablet) 2.5 mg PO DAILY [facility]; Protocol Last Admin: 09/18/24 09:33 Dose: 2.5 mg Magnesium Hydroxide (Milk Of Magnesia 30 Ml Oral.Susp) 30 ml PO DAILY PRN PRN Reason: Constipation Multivitamins/Vitamin C (Multivitamin Tablet) 1 tab PO DAILY [facility] Last Admin: 09/18/24 09:34 Dose: 1 tab Pt Own (Carbidopa- Levodopa [Rytary] 23 .75-95 Mg Capsule, Extended Releas 1 cap PO QID@0530,1000,1430,2200 [facility] Last Admin: 09/18/24 15:00 Dose: 1 cap Pt Own (Carbidopa- Levodopa [Rytary] 61 .25-245 Mg Capsule, Extended Relea 2 cap PO QID@0530,1000,1430,1900 [facility] Last Admin: 09/18/24 15:01 Dose: 2 cap Pt Own (Pimavanserin [Nuplazid] 34 Mg Capsule) 34 mg PO DAILY [facility] Last Admin: 09/18/24 09:37 Dose: 34 mg Pt Own (Carbidopa- Levodopa [Rytary] 61 .25-245 Mg Capsule, Extended Relea 1 cap PO DAILY@2200 [facility] Last Admin: 09/17/24 21:57 Dose: 1 cap Oxybutynin Chloride (Oxybutynin Chloride 5 Mg Tablet) 5 mg PO DAILY [facility] Last Admin: 09/18/24 09:34 Dose: 5 mg Polyethylene Glycol (Polyethylene Glycol 3350 17 Gm Powd.Pack) 17 gm PO DAILY [facility] Last Admin: 09/18/24 09:36 Dose: 17 gm Senna (Sennosides 8.6 Mg Tablet) 8.6 mg PO BEDTIME [facility] Last Admin: 09/17/24 20:25 Dose: 8.6 mg Tolterodine Tartrate (Tolterodine Tartrate La 4 Mg Cap.Er.24h) 4 mg PO DAILY [facility] Last Admin: 09/18/24 09:33 Dose: 4 mg Trazodone HCl (Trazodone Hcl 50 Mg Tablet) 50 mg PO BEDTIME MRX1 PRN PRN Reason: Insomnia Last Admin: 09/17/24 21:56 Dose: 50 mg Allergies Allergies Allergy/AdvReac Type Severity Reaction Status Date / Time morphine Allergy Unknown Verified 04/15/24 13:13 Assessment & Plan Assessment & Plan (1) Parkinson's disease with dyskinesia: Status: Acute Code(s): G20.B1 - Parkinson's disease with dyskinesia, without mention of fluctuations (2) Dementia due to Parkinson's disease with behavioral disturbance: Status: Acute Code(s): G20.A1 - Parkinson's disease without dyskinesia, without mention of fluctuations; F02.818 - Dementia in other diseases classified elsewhere, unspecified severity, with other behavioral disturbance Plan Mr. Stapleton is a 73 year-old male with hx of Parkinson's with dyskenisia who was sent to [facility] due to combative behaviors and paranoid delusions. It appears pt has been having more frequent falls. He lives at a shelter. He became combative when redirected to stay in wheelchair. On the unit, pt presents with severe cognitive/memory impairments and not able to provide much information as to why he is here. He thinks he is at home. He has no recollection about aggression that led to this admission. He also presents with chorea-like movement s/s levodopa/carbidopa which seems to contribute to recent falls. He does not present with paranoid delusions. Discussed with HCP, Kalee increase of clozaril may help with underlying delusions and may decrease some of dyskenisia. Will coordinate care with his OP neurologist and OP psych provider. PLAN 1. Admit to S1, CV by HCP 2. increase clozapine 25mg po BID. contiue nuplazid, but consider keeping only clozapine. 3. obtain collateral information 4. will check ortho VS 5. aftercare planning. Reason for continued inpatient stay Substantial Risk for: inability to function Time Spent With Patient Time: Total time managing care of this patient today ____ minutes.
[2024-09-18 20:00] VITALS: BP 164/89; PULSE 70; RESP 18; TEMP 36.7; O2SAT 98
[2024-09-18 21:02] LABS: Glucose, Whole Blood 244 mg/dL (60-115)
[2024-09-19] MEDS: CARBIDOPA LEVODOPA 1 EACH PO ×4 (05:25→21:32)
[2024-09-19] MEDS: CARBIDOPA PO ×5 (05:25→21:47)
[2024-09-19] MEDS: LEVODOPA PO ×5 (05:25→21:47)
[2024-09-19 05:58] LABS: Glucose, Whole Blood 150 mg/dL (60-115)
[2024-09-19 06:17] VITALS: BP 153/85; PULSE 64
[2024-09-19 08:00] VITALS: BP 158/86; PULSE 67; RESP 18; TEMP 36.7; O2SAT 97
[2024-09-19] MEDS: PIMAVANSERIN 34 MG 34 EACH PO (10:10)
[2024-09-19 10:12] VITALS: BP 158/86
--- NOTE | 2024-09-19 11:13 | P.PNPSI_ITS ---
Subjective Subjective Date of Service: 09/19/24 Reason For Visit: Delusional D/O Unspec Anxiety D/O Etc Subjective Notes: Section 12B Healthcare Proxy: Yes Interim History: Pt slept most of the night. somnolent although arousable this morning. Not oriented to place, month nor situation. no overt signs of psycohsis or delusional content. poverty of thought. he is taking medications as prescribed. BP has been volatile in that it fluctuates from hotn to hypertension. trying to avoid ortho hotn. Review of Systems Review of Systems Yes Unobtainable due to mental status Mental Status Exam Mental Status Exam Narrative: Appearance: wearing hospital gown, fair hygiene, in NAD. chorea movements of the trunk, and face Behavior: cooperative Psychomotor: chorea movement Speech: mumbles, difficult to understand at times, minimally spontaneous TP: poverty of thought TC: thinks he is at home Mood: ok Affect: grimacing dyskenisia SI: none HI: none VH/AH: no overt signs Delusions: no overt signs Insight/judgment: very impaired x 2. memory/cog: alert, not oriented to place, month nor situation. severe impairments in cognition/memory. Diagnostics Vital Signs (24Hr): Vital Signs - 24 hr 09/18/24 14:22 09/18/24 20:00 09/19/24 06:17 Temperature 98.0 F Pulse Rate 74 70 64 Respiratory Rate 18 Blood Pressure 184/94 H 164/89 H 153/85 H Pulse Oximetry 98 Oxygen Delivery Method Room Air 09/19/24 08:00 09/19/24 08:00 09/19/24 10:12 Temperature 98.1 F Pulse Rate 67 67 Respiratory Rate 18 Blood Pressure 158/86 H 158/86 H 158/86 H Pulse Oximetry 97 Oxygen Delivery Method Room Air BMI result Body Mass Index 20.6 Labs 09/17/24 07:17 Labs: Laboratory Results - last 48 hr 09/17/24 09/17/24 09/17/24 11:21 16:29 19:36 POC Glucose 155 H 118 H 253 H 09/18/24 09/18/24 09/18/24 06: 08:16 10:59 POC Glucose 217 H 183 H 141 H 09/18/24 09/18/24 09/19/24 16:30 20:52 05:39 POC Glucose 232 H 244 H 150 H Medications Medications Current Medications Acetaminophen (Acetaminophen 325 Mg Tablet) 650 mg PO Q6H PRN PRN Reason: Headache/Pain, Scale 1-10 Last Admin: 09/17/24 21:55 Dose: 650 mg Al Hydroxide/Mg Hydroxide (Magnesium Hydrox/Alum Hydrox 30 Ml Oral.Susp) 30 ml PO Q6H PRN PRN Reason: Heartburn/Nausea Apixaban (Apixaban 5 Mg Tablet) 5 mg PO BID [facility] Last Admin: 09/19/24 10:12 Dose: 5 mg Clozapine (Clozapine 25 Mg Tablet) 25 mg PO BEDTIME [facility] Last Admin: 09/18/24 20:50 Dose: 25 mg Clozapine (Clozapine 25 Mg Tablet) 25 mg PO DAILY [facility] Last Admin: 09/19/24 10:39 Dose: Not Given Dextrose (Dextrose 50 % 25 Gm/50 Ml Syringe) 25 gm IVPUSH Q15M PRN; Protocol PRN Reason: per Hypoglycemia Standing Ord. Gabapentin (Gabapentin 400 Mg Capsule) 400 mg PO TID [facility] Last Admin: 09/19/24 10:12 Dose: 400 mg Glipizide (Glipizide 5 Mg Tablet) 5 mg PO DAILY [facility] Last Admin: 09/19/24 10:12 Dose: 5 mg Glucose (Glucose Gel 15 Gm Gel..Gram.) 15 gm PO Q15M PRN; Protocol PRN Reason: per Hypoglycemia Standing Ord. Insulin Human Lispro (Insulin Lispro 100 Unit/Ml 3 Ml Vial) 0 unit SUBCUT QIDACHS [facility]; Protocol Last Admin: 09/19/24 09:01 Dose: Not Given Lisinopril (Lisinopril 2.5 Mg Tablet) 2.5 mg PO DAILY [facility]; Protocol Last Admin: 09/19/24 10:12 Dose: 2.5 mg Magnesium Hydroxide (Milk Of Magnesia 30 Ml Oral.Susp) 30 ml PO DAILY PRN PRN Reason: Constipation Multivitamins/Vitamin C (Multivitamin Tablet) 1 tab PO DAILY [facility] Last Admin: 09/19/24 10:11 Dose: 1 tab Pt Own (Carbidopa- Levodopa [Rytary] 23 .75-95 Mg Capsule, Extended Releas 1 cap PO QID@0530,1000,1430,2200 [facility] Last Admin: 09/19/24 10:22 Dose: 1 cap Pt Own (Carbidopa- Levodopa [Rytary] 61 .25-245 Mg Capsule, Extended Relea 2 cap PO QID@0530,1000,1430,1900 [facility] Last Admin: 09/19/24 10:21 Dose: 2 cap Pt Own (Pimavanserin [Nuplazid] 34 Mg Capsule) 34 mg PO DAILY [facility] Last Admin: 09/19/24 10:10 Dose: 34 mg Pt Own (Carbidopa- Levodopa [Rytary] 61 .25-245 Mg Capsule, Extended Relea 1 cap PO DAILY@2200 [facility] Last Admin: 09/18/24 22:45 Dose: 1 cap Oxybutynin Chloride (Oxybutynin Chloride 5 Mg Tablet) 5 mg PO DAILY [facility] Last Admin: 09/19/24 10:11 Dose: 5 mg Polyethylene Glycol (Polyethylene Glycol 3350 17 Gm Powd.Pack) 17 gm PO DAILY [facility] Last Admin: 09/19/24 10:15 Dose: 17 gm Senna (Sennosides 8.6 Mg Tablet) 8.6 mg PO BEDTIME [facility] Last Admin: 09/18/24 20:49 Dose: 8.6 mg Tolterodine Tartrate (Tolterodine Tartrate La 4 Mg Cap.Er.24h) 4 mg PO DAILY [facility] Last Admin: 09/19/24 10:12 Dose: 4 mg Trazodone HCl (Trazodone Hcl 50 Mg Tablet) 50 mg PO BEDTIME MRX1 PRN PRN Reason: Insomnia Last Admin: 09/18/24 20:49 Dose: 50 mg Allergies Allergies Allergy/AdvReac Type Severity Reaction Status Date / Time morphine Allergy Unknown Verified 04/15/24 13:13 Assessment & Plan Assessment & Plan (1) Parkinson's disease with dyskinesia: Status: Acute Code(s): G20.B1 - Parkinson's disease with dyskinesia, without mention of fluctuations (2) Dementia due to Parkinson's disease with behavioral disturbance: Status: Acute Code(s): G20.A1 - Parkinson's disease without dyskinesia, without mention of fluctuations; F02.818 - Dementia in other diseases classified elsewhere, unspecified severity, with other behavioral disturbance Plan Mr. Stapleton is a 73 year-old male with hx of Parkinson's with dyskenisia who was sent to [facility] due to combative behaviors and paranoid delusions. It appears pt has been having more frequent falls. [facility]. He became combative when redirected to stay in wheelchair. On the unit, pt presents with severe cognitive/memory impairments and not able to provide much information as to why he is here. He thinks he is at home. He has no recollection about aggression that led to this admission. He also presents with chorea-like movement s/s levodopa/carbidopa which seems to contribute to recent falls. He does not present with paranoid delusions. Discussed with HCP, Kalee increase of clozaril may help with underlying delusions and may decrease some of dyskenisia. Will coordinate care with his OP neurologist and OP psych provider. PLAN 09/19 continue tx. updated ex- who is HCP. Reason for continued inpatient stay Substantial Risk for: inability to function Time Spent With Patient Time: Total time managing care of this patient today ____ minutes.
[2024-09-19 16:30] LABS: Glucose, Whole Blood 198 mg/dL (60-115)
[2024-09-19 17:00] VITALS: BP 138/77; PULSE 82
[2024-09-19 20:00] VITALS: RESP 20; TEMP 36.4; O2SAT 93
[2024-09-19 20:04] LABS: Glucose, Whole Blood 138 mg/dL (60-115)
[2024-09-20] VITALS (12 sets, daily range): BP systolic 92–194; BP diastolic 57–110; PULSE 57–92; RESP 16–18; TEMP 36.4–36.8; O2SAT 96–97
[2024-09-20] MEDS: LEVODOPA PO ×5 (05:39→21:22)
[2024-09-20] MEDS: CARBIDOPA PO ×5 (05:39→21:22)
[2024-09-20] MEDS: CARBIDOPA LEVODOPA 1 EACH PO ×4 (05:40→22:50)
[2024-09-20 06:41] LABS: Glucose, Whole Blood 201 mg/dL (60-115)
[2024-09-20] MEDS: PIMAVANSERIN 34 MG 34 EACH PO (08:33)
[2024-09-20 11:27] LABS: Glucose, Whole Blood 134 mg/dL (60-115)
--- NOTE | 2024-09-20 15:13 | PC.NURSE ---
Ortostatic B/p high while patient sitting at the edge of the bed and then again after lying down for 10 minutes I checked it manually and it was still elevated at 180/110. Patient is asymptomatic, Dari Waldrop NP updated.
[2024-09-20 15:55] LABS: Glucose, Whole Blood 177 mg/dL (60-115)
[2024-09-20 16:07] LABS: Glucose, Whole Blood 218 mg/dL (60-115)
--- NOTE | 2024-09-20 16:58 | PC.NURSE ---
Patients B/P is elevated secondary to position because of Parkinson's. Repeat B/P 99/59 and P 92 sitting right upper arm at 1658 so one time Amlodipine order discontinued by Dari Waldrop NP before it was given.
--- NOTE | 2024-09-20 18:57 | P.PNPSI_ITS ---
Subjective Subjective Date of Service: 09/20/24 Reason For Visit: Delusional D/O Unspec Anxiety D/O Etc Subjective Notes: Conditional Voluntary Healthcare Proxy: Yes Interim History: Pt slept most of the night. somnolent although arousable this morning. Met with HCP, Kalee- who signed CV by HCP. Not oriented to place, month nor situation. no overt signs of psycohsis or delusional content. poverty of thought. he is taking medications as prescribed. BP has been volatile in that it fluctuates from hotn to hypertension. trying to avoid ortho hotn. Review of Systems Review of Systems Yes Unobtainable due to mental status Mental Status Exam Mental Status Exam Narrative: Appearance: wearing hospital gown, fair hygiene, in NAD. chorea movements of the trunk, and face Behavior: cooperative Psychomotor: chorea movement Speech: mumbles, difficult to understand at times, minimally spontaneous TP: poverty of thought TC: thinks he is at home Mood: ok Affect: grimacing dyskenisia SI: none HI: none VH/AH: no overt signs Delusions: no overt signs Insight/judgment: very impaired x 2. memory/cog: alert, not oriented to place, month nor situation. severe impairments in cognition/memory. Diagnostics Vital Signs (24Hr): Vital Signs - 24 hr 09/19/24 20:00 09/20/24 08:00 09/20/24 08:27 Temperature 97.6 F Pulse Rate 83 Respiratory Rate 20 Blood Pressure 92/57 L 92/57 L Pulse Oximetry 93 Oxygen Delivery Method Room Air 09/20/24 08:30 09/20/24 14:50 09/20/24 14:52 Temperature 97.6 F Pulse Rate 83 64 82 Respiratory Rate 18 Blood Pressure 92/57 L 157/89 H 180/103 H Pulse Oximetry 96 Oxygen Delivery Method Room Air 09/20/24 15:08 09/20/24 15:23 09/20/24 15:43 Temperature 98.2 F Pulse Rate 57 Respiratory Rate Blood Pressure 180/110 H 192/99 H Pulse Oximetry Oxygen Delivery Method 09/20/24 16:57 Temperature Pulse Rate 92 Respiratory Rate Blood Pressure 99/59 L Pulse Oximetry Oxygen Delivery Method BMI result Body Mass Index 20.6 Labs 09/17/24 07:17 Labs: Laboratory Results - last 48 hr 09/18/24 09/19/2425 20:52 05:39 11:33 POC Glucose 244 H 150 H 198 H 09/19/24 09/19/24 09/20/24 16:30 20:00 06:36 POC Glucose 177 H 138 H 201 H 09/20/24 09/20/24 11:22 16:02 POC Glucose 134 H 218 H Medications Medications Current Medications Acetaminophen (Acetaminophen 325 Mg Tablet) 650 mg PO Q6H PRN PRN Reason: Headache/Pain, Scale 1-10 Last Admin: 09/17/24 21:55 Dose: 650 mg Al Hydroxide/Mg Hydroxide (Magnesium Hydrox/Alum Hydrox 30 Ml Oral.Susp) 30 ml PO Q6H PRN PRN Reason: Heartburn/Nausea Apixaban (Apixaban 5 Mg Tablet) 5 mg PO BID [facility] Last Admin: 09/20/24 08:27 Dose: 5 mg Clozapine (Clozapine 25 Mg Tablet) 25 mg PO BEDTIME [facility] Last Admin: 09/19/24 21:28 Dose: 25 mg Clozapine (Clozapine 25 Mg Tablet) 25 mg PO DAILY [facility] Last Admin: 09/20/24 08:28 Dose: 25 mg Dextrose (Dextrose 50 % 25 Gm/50 Ml Syringe) 25 gm IVPUSH Q15M PRN; Protocol PRN Reason: per Hypoglycemia Standing Ord. Gabapentin (Gabapentin 400 Mg Capsule) 400 mg PO TID [facility] Last Admin: 09/20/24 14:38 Dose: 400 mg Glipizide (Glipizide 5 Mg Tablet) 5 mg PO DAILY [facility] Last Admin: 09/20/24 08:32 Dose: 5 mg Glucose (Glucose Gel 15 Gm Gel..Gram.) 15 gm PO Q15M PRN; Protocol PRN Reason: per Hypoglycemia Standing Ord. Insulin Human Lispro (Insulin Lispro 100 Unit/Ml 3 Ml Vial) 0 unit SUBCUT QIDACHS [facility]; Protocol Last Admin: 09/20/24 16:16 Dose: 4 unit Lisinopril (Lisinopril 2.5 Mg Tablet) 2.5 mg PO DAILY [facility]; Protocol Last Admin: 09/20/24 08:27 Dose: 2.5 mg Magnesium Hydroxide (Milk Of Magnesia 30 Ml Oral.Susp) 30 ml PO DAILY PRN PRN Reason: Constipation Multivitamins/Vitamin C (Multivitamin Tablet) 1 tab PO DAILY [facility] Last Admin: 09/20/24 08:28 Dose: 1 tab Pt Own (Carbidopa- Levodopa [Rytary] 23 .75-95 Mg Capsule, Extended Releas 1 cap PO QID@0530,1000,1430,2200 [facility] Last Admin: 09/20/24 14:38 Dose: 1 cap Pt Own (Carbidopa- Levodopa [Rytary] 61 .25-245 Mg Capsule, Extended Relea 2 cap PO QID@0530,1000,1430,1900 [facility] Last Admin: 09/20/24 14:40 Dose: 2 cap Pt Own (Pimavanserin [Nuplazid] 34 Mg Capsule) 34 mg PO DAILY [facility] Last Admin: 09/20/24 08:33 Dose: 34 mg Pt Own (Carbidopa- Levodopa [Rytary] 61 .25-245 Mg Capsule, Extended Relea 1 cap PO DAILY@2200 [facility] Last Admin: 09/19/24 21:47 Dose: 1 cap Oxybutynin Chloride (Oxybutynin Chloride 5 Mg Tablet) 5 mg PO DAILY [facility] Last Admin: 09/20/24 08:27 Dose: 5 mg Polyethylene Glycol (Polyethylene Glycol 3350 17 Gm Powd.Pack) 17 gm PO DAILY [facility] Last Admin: 09/20/24 08:34 Dose: 17 gm Senna (Sennosides 8.6 Mg Tablet) 8.6 mg PO BEDTIME [facility] Last Admin: 09/19/24 21:28 Dose: 8.6 mg Tolterodine Tartrate (Tolterodine Tartrate La 4 Mg Cap.Er.24h) 4 mg PO DAILY [facility] Last Admin: 09/20/24 08:27 Dose: 4 mg Trazodone HCl (Trazodone Hcl 50 Mg Tablet) 50 mg PO BEDTIME MRX1 PRN PRN Reason: Insomnia Last Admin: 09/19/24 21:28 Dose: 50 mg Allergies Allergies Allergy/AdvReac Type Severity Reaction Status Date / Time morphine Allergy Unknown Verified 04/15/24 13:13 Assessment & Plan Assessment & Plan (1) Parkinson's disease with dyskinesia: Status: Acute Code(s): G20.B1 - Parkinson's disease with dyskinesia, without mention of fluctuations (2) Dementia due to Parkinson's disease with behavioral disturbance: Status: Acute Code(s): G20.A1 - Parkinson's disease without dyskinesia, without mention of fluctuations; F02.818 - Dementia in other diseases classified elsewhere, unspecified severity, with other behavioral disturbance Plan Mr. Stapleton is a 73 year-old male with hx of Parkinson's with dyskenisia who was sent to [facility] due to combative behaviors and paranoid delusions. It appears pt has been having more frequent falls. He lives at a halfway. He became combative when redirected to stay in wheelchair. On the unit, pt presents with severe cognitive/memory impairments and not able to provide much information as to why he is here. He thinks he is at home. He has no recollection about aggression that led to this admission. He also presents with chorea-like movement s/s levodopa/carbidopa which seems to contribute to recent falls. He does not present with paranoid delusions. Discussed with HCP, Kalee increase of clozaril may help with underlying delusions and may decrease some of dyskenisia. Will coordinate care with his OP neurologist and OP psych provider. PLAN 09/20 continue tx. Reason for continued inpatient stay Substantial Risk for: inability to function Time Spent With Patient Time: Total time managing care of this patient today ____ minutes.
[2024-09-20 21:43] LABS: Glucose, Whole Blood 243 mg/dL (60-115)
[2024-09-21 01:26] VITALS: BP 155/95; PULSE 67
[2024-09-21] MEDS: CARBIDOPA LEVODOPA 1 EACH PO ×4 (05:56→21:59)
[2024-09-21] MEDS: LEVODOPA PO ×5 (05:56→21:59)
[2024-09-21] MEDS: CARBIDOPA PO ×5 (05:56→21:59)
[2024-09-21 06:14] VITALS: BP 181/95; PULSE 70
[2024-09-21 06:32] LABS: Glucose, Whole Blood 176 mg/dL (60-115)
[2024-09-21 08:41] VITALS: BP 110/71; PULSE 84; RESP 18; TEMP 36.2; O2SAT 97
[2024-09-21] MEDS: PIMAVANSERIN 34 MG 34 EACH PO (09:28)
--- NOTE | 2024-09-21 09:46 | HO.PM.IMCN ---
History of Present Illness Data of Consult Service Date: 09/21/24 Primary Care Provider: Unknown Physician HPI Reason for consult: Orthostaic Hypotension. 73 year old male with PMH of syncope, autonomic orthostatic hypotension, dystonia, schizophrenia, dementia, Parkinson's disease, type 2 diabetes, AFib and hyperlipidemia. Patient was recently discharged from [facility] on 09/16 secondary to recurrent falls related to orthostatic hypotension. Patient has known autonomic dysfunction in the setting of his Parkinson's disease. At that time ACS was ruled out, and he was treated conservatively for orthostasis with the abdominal binder is on compression stockings. During the hospital stay was complicated by acute dystonia due to missing medications. He was restarted on bends stripping and his home Sinemet with improvement. Upon review of blood pressures, several readings with systolic blood pressure is elevated to the 180s. This morning at 06:00 is 181/95, a recheck revealed 110/71. On exam he is awake and alert, denies any shortness of breath, dizziness lightheadedness. His blood sugars are in acceptable range. Review of Systems Review of Systems: Denies any shortness of breath, chest pain, dizziness, lightheadedness, abdominal pain or discomfort, nausea vomiting or diarrhea [facility] Medical History (Updated 09/21/24 @ 10:02 by Nina Yost MD) DVT (deep venous thrombosis) Diabetes Parkinsons Surgical History No pertinent past surgical history Social History Household Members: Other Housing: Other Do you presently have visiting nurse or other home services: No Alcohol intake: never Comment: 1:1 Patient Tobacco Use Status: Never used Tobacco Currently Displaying Signs/Symptoms of Drug Intoxication Withdrawal: No Advance Directives: No Advance Directives Information Provided: Yes Do you have thoughts of harming others: None Do you have a plan to hurt others: No Plan Recently lost weight without trying: Unsure Poor oral hygiene: Yes service: No Sexual orientation: Straight/Heterosexual Meds Allergies Allergy/AdvReac Type Severity Reaction Status Date / Time morphine Allergy Unknown Verified 04/15/24 13:13 Active Medications: Current Medications Acetaminophen (Acetaminophen 325 Mg Tablet) 650 mg PO Q6H PRN PRN Reason: Headache/Pain, Scale 1-10 Last Admin: 09/17/24 21:55 Dose: 650 mg Al Hydroxide/Mg Hydroxide (Magnesium Hydrox/Alum Hydrox 30 Ml Oral.Susp) 30 ml PO Q6H PRN PRN Reason: Heartburn/Nausea Apixaban (Apixaban 5 Mg Tablet) 5 mg PO BID [facility] Last Admin: 09/21/24 08:46 Dose: 5 mg Clozapine (Clozapine 25 Mg Tablet) 25 mg PO BEDTIME [facility] Last Admin: 09/20/24 21:23 Dose: 25 mg Clozapine (Clozapine 25 Mg Tablet) 25 mg PO DAILY [facility] Last Admin: 09/21/24 08:47 Dose: 25 mg Dextrose (Dextrose 50 % 25 Gm/50 Ml Syringe) 25 gm IVPUSH Q15M PRN; Protocol PRN Reason: per Hypoglycemia Standing Ord. Gabapentin (Gabapentin 400 Mg Capsule) 400 mg PO TID [facility] Last Admin: 09/21/24 08:46 Dose: 400 mg Glipizide (Glipizide 5 Mg Tablet) 5 mg PO DAILY [facility] Last Admin: 09/21/24 08:46 Dose: 5 mg Glucose (Glucose Gel 15 Gm Gel..Gram.) 15 gm PO Q15M PRN; Protocol PRN Reason: per Hypoglycemia Standing Ord. Insulin Human Lispro (Insulin Lispro 100 Unit/Ml 3 Ml Vial) 0 unit SUBCUT QIDACHS [facility]; Protocol Last Admin: 09/21/24 06:34 Dose: 2 unit Lisinopril (Lisinopril 5 Mg Tablet) 5 mg PO DAILY [facility]; Protocol Last Admin: 09/21/24 08:45 Dose: 5 mg Magnesium Hydroxide (Milk Of Magnesia 30 Ml Oral.Susp) 30 ml PO DAILY PRN PRN Reason: Constipation Multivitamins/Vitamin C (Multivitamin Tablet) 1 tab PO DAILY [facility] Last Admin: 09/21/24 08:46 Dose: 1 tab Pt Own (Carbidopa- Levodopa [Rytary] 23 .75-95 Mg Capsule, Extended Releas 1 cap PO QID@0530,1000,1430,2200 [facility] Last Admin: 09/21/24 09:28 Dose: 1 cap Pt Own (Carbidopa- Levodopa [Rytary] 61 .25-245 Mg Capsule, Extended Relea 2 cap PO QID@0530,1000,1430,1900 [facility] Last Admin: 09/21/24 09:28 Dose: 2 cap Pt Own (Pimavanserin [Nuplazid] 34 Mg Capsule) 34 mg PO DAILY [facility] Last Admin: 09/21/24 09:28 Dose: 34 mg Pt Own (Carbidopa- Levodopa [Rytary] 61 .25-245 Mg Capsule, Extended Relea 1 cap PO DAILY@2200 [facility] Last Admin: 09/20/24 21:21 Dose: 1 cap Oxybutynin Chloride (Oxybutynin Chloride 5 Mg Tablet) 5 mg PO DAILY [facility] Last Admin: 09/21/24 08:46 Dose: 5 mg Polyethylene Glycol (Polyethylene Glycol 3350 17 Gm Powd.Pack) 17 gm PO DAILY [facility] Last Admin: 09/21/24 09:27 Dose: 17 gm Senna (Sennosides 8.6 Mg Tablet) 8.6 mg PO BEDTIME [facility] Last Admin: 09/20/24 21:23 Dose: 8.6 mg Tolterodine Tartrate (Tolterodine Tartrate La 4 Mg Cap.Er.24h) 4 mg PO DAILY [facility] Last Admin: 09/21/24 08:45 Dose: 4 mg Trazodone HCl (Trazodone Hcl 50 Mg Tablet) 50 mg PO BEDTIME MRX1 PRN PRN Reason: Insomnia Last Admin: 09/20/24 21:23 Dose: 50 mg Home Medications ?Medication ?Instructions ?Recorded ?Confirmed ?Last Taken ?Type benzonatate 100 mg capsule 100 mg PO TID PRN Cough 10/12/20 09/17/24 Unknown History gabapentin 400 mg capsule 1 cap PO TID 10/12/20 09/16/24 10/12/20 History (Neurontin) multivitamin 1 tab PO QAM 10/12/20 09/16/24 10/12/20 History sennosides 8.6 mg tablet (senna) 17.2 mg PO DAILY PRN Constipation 10/12/20 09/17/24 Unknown History rosuvastatin 10 mg tablet 10 mg PO BEDTIME 07/04/21 09/17/24 Unknown History clozapine 25 mg tablet 25 mg PO BEDTIME 01/02/22 09/16/24 09/16/24 History apixaban 5 mg tablet (Eliquis) 5 mg PO BID 04/02/22 09/16/24 Unknown History magnesium oxide 400 mg (241.3 mg 200 mg PO DAILY 04/02/22 09/17/24 Unknown History magnesium) tablet acetaminophen 325 mg capsule 650 mg PO Q6H PRN Pain 07/11/22 09/17/24 Unknown History (Tylenol) glimepiride 2 mg tablet 2 mg PO DAILY 05/26/23 09/16/24 Unknown History metoprolol succinate 25 mg 25 mg PO DAILY 06/17/23 09/17/24 Unknown History tablet,extended release 24 hr lisinopril 5 mg tablet 2.5 mg PO DAILY 10/14/23 09/16/24 Unknown History Miralax 17 g PO DAILY 09/16/24 09/16/24 Unknown History carbidopa ER 23.75 mg-levodopa 95 See Rx Instructions .Route .COMPLEX 09/16/24 09/16/24 Unknown History mg capsule,extended release (Rytary) magnesium oxide 200 mg PO DAILY 09/16/24 09/16/24 Unknown History oxybutynin chloride 5 tab PO DAILY 09/16/24 09/16/24 Unknown History pimavanserin 34 mg PO 09/16/24 09/16/24 09/15/24 14:00 History senna 8.6 tab PO BEDTIME 09/16/24 09/16/24 Unknown History tolterodine 4 mg PO DAILY 09/16/24 09/16/24 Unknown History Physical Exam Vital Signs and Narrative: Vital Signs: Last Vital Signs Temp 97.2 F 09/21/24 08:41 Pulse 84 09/21/24 08:41 Resp 18 09/21/24 08:41 BP 110/71 09/21/24 08:41 Pulse Ox 97 09/21/24 08:41 O2 Del Method Room Air 09/21/24 08:41 BMI result Body Mass Index 20.6 CONST: Alert and confused, in NAD. HEENT: Normocephalic, atraumatic, MMM, Eyes clear, Neck supple RESP: Lungs clear, RRR even and regular HEART:,RRR, S1, S2. No edema GI:Abdomen Soft NT, ND. + BS times four :Deferred SKIN: Warm dry and intact NEURO: Alert, answers questions. Flat affect, Tongue movements. PSYCH: Normal affect Results Labs 09/17/24 07:17 Labs: Laboratory Results - last 24 hr 09/19/24 09/20/24 09/20/24 16:30 11:22 16:02 POC Glucose 177 H 134 H 218 H 09/20/24 09/21/24 21:37 06:17 POC Glucose 243 H 176 H Assessment and Plan (1) Orthostatic hypotension dysautonomic syndrome: Status: Acute Plan Schizophrenia/Mood disorder Plan per psychiatric team Parkinson's disease with dyskinesia/autonomic orthostatic hypotension, history of dystonia Continue home meds for Parkinson's disease Abdominal binder and RAYMOND stockings while awake Low-dose of captopril at HS Continue to monitor blood pressures Follow labs AFib Not on rate control, discussion needs to occur with primary care regarding discontinuing his anticoagulants due to frequent falls HTN/HLD Follow blood pressures and adjust medications judiciously Restart Home Crestor CKD stage 3 Follow labs- Last RF in March WNL BUN/CREAT stable 09/21/2024 Type 2 DM Continue Glimiperide, Insulin SS. Blood sugars acceptable range. Last A1c 7.4% Recent [facility] admit Thank you for allowing me to participate in the care of this patient. Will follow as needed. Please reconsult of any acute concerns or issues arise
--- NOTE | 2024-09-21 09:56 | P.CNNE_ITS ---
History of Present Illness Data of Consult Service Date: 09/21/24 Primary Care Provider: Unknown Physician HPI Reason for consult: Movement disorder 64 years old man who I had seen in the past, the last time in 2016, for severe Parkinson's disease. He was taking significant doses of dopaminergic medications while also having significant side effects from it including dyskinesia. At this time he was admitted on psychiatric floor and I was asked to comment on as walking and abnormal movements. He has been following [place] office of [facility] neurology. I had noticed that he has been taking dopaminergic medicines. I came to see him yesterday and he was deeply asleep and I went to see him back today when he was outside and taking his meal. Review of Systems 2 Review of Systems: No complain of headache or any loss of bowel bladder control PMFSH Past Medical History Medical History (Updated 09/21/24 @ 10:02 by Nina Yost MD) DVT (deep venous thrombosis) Diabetes Parkinsons Surgical History Surgical History No pertinent past surgical history Social History Social History Household Members: Other Housing: Other Do you presently have visiting nurse or other home services: No Alcohol intake: never Comment: 1:1 Patient Tobacco Use Status: Never used Tobacco Currently Displaying Signs/Symptoms of Drug Intoxication Withdrawal: No Advance Directives: No Advance Directives Information Provided: Yes Do you have thoughts of harming others: None Do you have a plan to hurt others: No Plan Recently lost weight without trying: Unsure Poor oral hygiene: Yes service: No Sexual orientation: Straight/Heterosexual Meds Allergies Allergy/AdvReac Type Severity Reaction Status Date / Time morphine Allergy Unknown Verified 04/15/24 13:13 Active Medications: Current Medications Acetaminophen (Acetaminophen 325 Mg Tablet) 650 mg PO Q6H PRN PRN Reason: Headache/Pain, Scale 1-10 Last Admin: 09/17/24 21:55 Dose: 650 mg Al Hydroxide/Mg Hydroxide (Magnesium Hydrox/Alum Hydrox 30 Ml Oral.Susp) 30 ml PO Q6H PRN PRN Reason: Heartburn/Nausea Apixaban (Apixaban 5 Mg Tablet) 5 mg PO BID [facility] Last Admin: 09/21/24 08:46 Dose: 5 mg Captopril (Captopril 12.5 Mg Tablet) 6.25 mg PO BEDTIME [facility]; Protocol Clozapine (Clozapine 25 Mg Tablet) 25 mg PO BEDTIME [facility] Last Admin: 09/20/24 21:23 Dose: 25 mg Clozapine (Clozapine 25 Mg Tablet) 25 mg PO DAILY [facility] Last Admin: 09/21/24 08:47 Dose: 25 mg Dextrose (Dextrose 50 % 25 Gm/50 Ml Syringe) 25 gm IVPUSH Q15M PRN; Protocol PRN Reason: per Hypoglycemia Standing Ord. Gabapentin (Gabapentin 400 Mg Capsule) 400 mg PO TID [facility] Last Admin: 09/21/24 08:46 Dose: 400 mg Glipizide (Glipizide 5 Mg Tablet) 5 mg PO DAILY [facility] Last Admin: 09/21/24 08:46 Dose: 5 mg Glucose (Glucose Gel 15 Gm Gel..Gram.) 15 gm PO Q15M PRN; Protocol PRN Reason: per Hypoglycemia Standing Ord. Insulin Human Lispro (Insulin Lispro 100 Unit/Ml 3 Ml Vial) 0 unit SUBCUT QIDACHS [facility]; Protocol Last Admin: 09/21/24 06:34 Dose: 2 unit Magnesium Hydroxide (Milk Of Magnesia 30 Ml Oral.Susp) 30 ml PO DAILY PRN PRN Reason: Constipation Multivitamins/Vitamin C (Multivitamin Tablet) 1 tab PO DAILY [facility] Last Admin: 09/21/24 08:46 Dose: 1 tab Pt Own (Carbidopa- Levodopa [Rytary] 23 .75-95 Mg Capsule, Extended Releas 1 cap PO QID@0530,1000,1430,2200 [facility] Last Admin: 09/21/24 09:28 Dose: 1 cap Pt Own (Carbidopa- Levodopa [Rytary] 61 .25-245 Mg Capsule, Extended Relea 2 cap PO QID@0530,1000,1430,1900 [facility] Last Admin: 09/21/24 09:28 Dose: 2 cap Pt Own (Pimavanserin [Nuplazid] 34 Mg Capsule) 34 mg PO DAILY [facility] Last Admin: 09/21/24 09:28 Dose: 34 mg Pt Own (Carbidopa- Levodopa [Rytary] 61 .25-245 Mg Capsule, Extended Relea 1 cap PO DAILY@2200 [facility] Last Admin: 09/20/24 21:21 Dose: 1 cap Oxybutynin Chloride (Oxybutynin Chloride 5 Mg Tablet) 5 mg PO DAILY [facility] Last Admin: 09/21/24 08:46 Dose: 5 mg Polyethylene Glycol (Polyethylene Glycol 3350 17 Gm Powd.Pack) 17 gm PO DAILY [facility] Last Admin: 09/21/24 09:27 Dose: 17 gm Senna (Sennosides 8.6 Mg Tablet) 8.6 mg PO BEDTIME [facility] Last Admin: 09/20/24 21:23 Dose: 8.6 mg Tolterodine Tartrate (Tolterodine Tartrate La 4 Mg Cap.Er.24h) 4 mg PO DAILY [facility] Last Admin: 09/21/24 08:45 Dose: 4 mg Trazodone HCl (Trazodone Hcl 50 Mg Tablet) 50 mg PO BEDTIME MRX1 PRN PRN Reason: Insomnia Last Admin: 09/20/24 21:23 Dose: 50 mg Home Medications ?Medication ?Instructions ?Recorded ?Confirmed ?Last Taken ?Type benzonatate 100 mg capsule 100 mg PO TID PRN Cough 09/17/24 Unknown History gabapentin 400 mg capsule 1 cap PO TID 10/12/2010/12/20 History (Neurontin) multivitamin 1 tab PO QAM 10/12/2010/12/20 History sennosides 8.6 mg tablet (senna) 17.2 mg PO DAILY PRN Constipation 10/12/20 09/17/24 Unknown History rosuvastatin 10 mg tablet 10 mg PO BEDTIME 07/04/21 Unknown History clozapine 25 mg tablet 25 mg PO BEDTIME 01/02/2209/16/24 History apixaban 5 mg tablet (Eliquis) 5 mg PO BID 04/02/22 Unknown History magnesium oxide 400 mg (241.3 mg 200 mg PO DAILY 04/0209/17/24 Unknown History magnesium) tablet acetaminophen 325 mg capsule 650 mg PO Q6H PRN Pain 09/17/24 Unknown History (Tylenol) glimepiride 2 mg tablet 2 mg PO DAILY 05/26/2309/16 Unknown History metoprolol succinate 25 mg 25 mg PO DAILY 06/17/23 Unknown History tablet,extended release 24 hr lisinopril 5 mg tablet 2.5 mg PO DAILY 10/14/23 Unknown History Miralax 17 g PO DAILY 09/16/2409/16 Unknown History carbidopa ER 23.75 mg-levodopa 95 See Rx Instructions .Route .COMPLEX 09/16/24 09/16/24 Unknown History mg capsule,extended release (Rytary) magnesium oxide 200 mg PO DAILY 09/16/24 Unknown History oxybutynin chloride 5 tab PO DAILY 09/16/2408/22 Unknown History pimavanserin 34 mg PO 09/16/24 09/16/24 0 09/15/24 14:00 History senna 8.6 tab PO BEDTIME 09/16/24 09/16/24 Unknown History tolterodine 4 mg PO DAILY 09/16/2409/16 Unknown History Physical Exam 2 Vital Signs: Vital Signs: Last Vital Signs Temp 97.2 F 09/21/24 08:41 Pulse 84 09/21/24 08:41 Resp 18 09/21/24 08:41 BP 110/71 09/21/24 08:41 Pulse Ox 97 09/21/24 08:41 O2 Del Method Room Air 09/21/24 08:41 BMI result Body Mass Index 20.6 Neuro: Other: He is alert and awake with normal spontaneity of speech fluency comprehension and somewhat flat affect. He recognize me stating that he had seen me in my office. Face was symmetrical. Visual gray are full. There was no obvious focal arm or leg weakness. Mild dyskinetic movements in both sides of his body especially in arms and shoulder area were noted. Deep tendon reflexes were trace to absent with flexor plantars. He was able to get up and walk around but had mild truncal dyskinesia. Speech was normal. Results Labs 09/17/24 07:17 Labs: His head CT revealed moderately severe cortical mostly frontal and some temporal lobe atrophy. Assessment and Plan (1) Parkinson's disease with dyskinesia: Qualifiers: Fluctuating manifestations: with fluctuating manifestations Qualified Code(s): G20.B2 - Parkinson's disease with dyskinesia, with fluctuations Status: Acute (2) Dementia due to Parkinson's disease with behavioral disturbance: Status: Acute (3) Frontotemporal lobar degeneration: Status: Acute With long history of Parkinson's disease and requirement for relatively high doses of dopaminergic medications and with history of dyskinesia from the medications, he also has behavioral symptomatology. As far as dyskinesia is concerned, it is mild unlikely due to medication and may not have to be treated. Patient's usually prefer hyper dopaminergic state than hypo. His brain scan has revealed significant frontotemporal degeneration, which typically can impact patient's mood, personality, cognition, ability to make decisions, and even balance and walking. Etiologies likely genetic based with no specific treatment other than symptom management. If possible, FDG brain PET scan can put more light into the diagnosis of frontal lobe dementia syndrome. Procedures Date of Service Date of Service: 09/21/24
[2024-09-21 10:19] LABS: Anion Gap 10 (12-20); Blood Urea Nitrogen 16 mg/dL (9-16); Calcium 8.4 mg/dL (8.4-10.2); Carbon Dioxide 26 mmol/L (22-29); Chloride 105 mmol/L (96-108); Creatinine Clr Calc Pharmacy 78.3; Estimated Glomerular Filt Rate > 60; Potassium 3.7 mmol/L (3.3-5.1); Sodium 137 mmol/L (135-145)
[2024-09-21 11:29] LABS: Glucose, Whole Blood 195 mg/dL (60-115)
--- NOTE | 2024-09-21 15:49 | HO.PSYCHPN ---
Subjective Subjective Date of Service: 09/21/24 Reason For Visit: Delusional D/O Unspec Anxiety D/O Etc Interim History: choreo-athetotic writhing movements while lying on the floor. states lying on the floor helps them somewhat. asking for yoga mat. staff by his side attempting to obtain one. otherwise no complaints or requests. per staff, flat. denies dep/anx. eating well. FSBS around 200 or below. Mental Status Exam Mental Status Exam Narrative: Appearance: fair hygiene, in NAD. chorea movements of the trunk, arms Behavior: cooperative Psychomotor: chorea movement Speech: mumbles, difficult to understand at times, minimally spontaneous TP: poverty of thought TC: denies problems MD can help with Mood: ok Affect: grimacing dyskenisia SI: none expressed HI: none expressed VH/AH: no overt signs Delusions: no overt signs Insight/judgment: very impaired x 2. memory/cog: alert, not oriented to place, month nor situation. severe impairments in cognition/memory. Diagnostics Vital Signs (24Hr): Vital Signs - 24 hr 09/20/24 16:57 09/20/24 20:00 09/20/24 22:14 Temperature 97.8 F Pulse Rate 92 78 85 Respiratory Rate 16 Blood Pressure 99/59 L 164/84 H 194/105 H Pulse Oximetry 97 Oxygen Delivery Method Room Air 09/20/24 22:15 09/21/24 01:26 09/21/24 06:14 Temperature Pulse Rate 70 67 70 Respiratory Rate Blood Pressure 187/99 H 155/95 H 181/95 H Pulse Oximetry Oxygen Delivery Method 09/21/24 08:41 Temperature 97.2 F Pulse Rate 84 Respiratory Rate 18 Blood Pressure 110/71 Pulse Oximetry 97 Oxygen Delivery Method Room Air BMI result Body Mass Index 20.6 Labs 09/21/24 09:44 Labs: Laboratory Results - last 48 hr 09/19/24 09/19/24 09/19/24 11:33 16:30 20:00 Sodium Potassium Chloride Carbon Dioxide Anion Gap BUN Creatinine Estim Creat Clear Calc Estimated GFR POC Glucose 198 H 177 H 138 H Random Glucose Calcium 09/20/24 09/20/24 09/20/24 06:36 11:22 16:02 Sodium Potassium Chloride Carbon Dioxide Anion Gap BUN Creatinine Estim Creat Clear Calc Estimated GFR POC Glucose 201 H 134 H 218 H Random Glucose Calcium 09/20/24 09/21/24 09/21/24 21:37 06:17 09:44 Sodium 137 Potassium 3.7 Chloride 105 Carbon Dioxide 26 Anion Gap 10 L BUN 16 Creatinine 0.82 Estim Creat Clear Calc 78.3 Estimated GFR > 60 POC Glucose 243 H 176 H Random Glucose 269 H Calcium 8.4 09/21/24 11:25 Sodium Potassium Chloride Carbon Dioxide Anion Gap BUN Creatinine Estim Creat Clear Calc Estimated GFR POC Glucose 195 H Random Glucose Calcium Medications Medications Current Medications Acetaminophen (Acetaminophen 325 Mg Tablet) 650 mg PO Q6H PRN PRN Reason: Headache/Pain, Scale 1-10 Last Admin: 09/17/24 21:55 Dose: 650 mg Al Hydroxide/Mg Hydroxide (Magnesium Hydrox/Alum Hydrox 30 Ml Oral.Susp) 30 ml PO Q6H PRN PRN Reason: Heartburn/Nausea Apixaban (Apixaban 5 Mg Tablet) 5 mg PO BID [facility] Last Admin: 09/21/24 08:46 Dose: 5 mg Atorvastatin Calcium (Atorvastatin Calcium 40 Mg Tablet) 40 mg PO BEDTIME [facility] Captopril (Captopril 12.5 Mg Tablet) 6.25 mg PO BEDTIME [facility]; Protocol Clozapine (Clozapine 25 Mg Tablet) 25 mg PO BEDTIME [facility] Last Admin: 09/20/24 21:23 Dose: 25 mg Clozapine (Clozapine 25 Mg Tablet) 25 mg PO DAILY [facility] Last Admin: 09/21/24 08:47 Dose: 25 mg Dextrose (Dextrose 50 % 25 Gm/50 Ml Syringe) 25 gm IVPUSH Q15M PRN; Protocol PRN Reason: per Hypoglycemia Standing Ord. Gabapentin (Gabapentin 400 Mg Capsule) 400 mg PO TID [facility] Last Admin: 09/21/24 14:30 Dose: 400 mg Glipizide (Glipizide 5 Mg Tablet) 5 mg PO DAILY [facility] Last Admin: 09/21/24 08:46 Dose: 5 mg Glucose (Glucose Gel 15 Gm Gel..Gram.) 15 gm PO Q15M PRN; Protocol PRN Reason: per Hypoglycemia Standing Ord. Insulin Human Lispro (Insulin Lispro 100 Unit/Ml 3 Ml Vial) 0 unit SUBCUT QIDACHS [facility]; Protocol Last Admin: 09/21/24 11:37 Dose: 2 unit Magnesium Hydroxide (Milk Of Magnesia 30 Ml Oral.Susp) 30 ml PO DAILY PRN PRN Reason: Constipation Multivitamins/Vitamin C (Multivitamin Tablet) 1 tab PO DAILY [facility] Last Admin: 09/21/24 08:46 Dose: 1 tab Pt Own (Carbidopa- Levodopa [Rytary] 23 .75-95 Mg Capsule, Extended Releas 1 cap PO QID@0530,1000,1430,2200 [facility] Last Admin: 09/21/24 14:30 Dose: 1 cap Pt Own (Carbidopa- Levodopa [Rytary] 61 .25-245 Mg Capsule, Extended Relea 2 cap PO QID@0530,1000,1430,1900 [facility] Last Admin: 09/21/24 14:31 Dose: 2 cap Pt Own (Pimavanserin [Nuplazid] 34 Mg Capsule) 34 mg PO DAILY [facility] Last Admin: 09/21/24 09:28 Dose: 34 mg Pt Own (Carbidopa- Levodopa [Rytary] 61 .25-245 Mg Capsule, Extended Relea 1 cap PO DAILY@2200 [facility] Last Admin: 09/20/24 21:21 Dose: 1 cap Oxybutynin Chloride (Oxybutynin Chloride 5 Mg Tablet) 5 mg PO DAILY [facility] Last Admin: 09/21/24 08:46 Dose: 5 mg Polyethylene Glycol (Polyethylene Glycol 3350 17 Gm Powd.Pack) 17 gm PO DAILY [facility] Last Admin: 09/21/24 09:27 Dose: 17 gm Senna (Sennosides 8.6 Mg Tablet) 8.6 mg PO BEDTIME [facility] Last Admin: 09/20/24 21:23 Dose: 8.6 mg Tolterodine Tartrate (Tolterodine Tartrate La 4 Mg Cap.Er.24h) 4 mg PO DAILY [facility] Last Admin: 09/21/24 08:45 Dose: 4 mg Trazodone HCl (Trazodone Hcl 50 Mg Tablet) 50 mg PO BEDTIME [facility]X1 PRN PRN Reason: Insomnia Last Admin: 09/20/24 21:23 Dose: 50 mg Allergies Allergies Allergy/AdvReac Type Severity Reaction Status Date / Time morphine Allergy Unknown Verified 04/15/24 13:13 Assessment & Plan Assessment & Plan (1) Orthostatic hypotension dysautonomic syndrome: Status: Acute Code(s): I95.1 - Orthostatic hypotension Assessment and Plan: Schizophrenia/Mood disorder Plan per psychiatric team Parkinson's disease with dyskinesia/autonomic orthostatic hypotension, history of dystonia Continue home meds for Parkinson's disease Abdominal binder and RAYMOND stockings while awake Low-dose of captopril at HS Continue to monitor blood pressures Follow labs AFib Not on rate control, discussion needs to occur with primary care regarding discontinuing his anticoagulants due to frequent falls HTN/HLD Follow blood pressures and adjust medications judiciously Restart Home Crestor CKD stage 3 Follow labs- Last RF in March WNL BUN/CREAT stable 09/21/2024 Type 2 DM Continue Glimiperide, Insulin SS. Blood sugars acceptable range. Last A1c 7.4% Recent [facility] admit Thank you for allowing me to participate in the care of this patient. Will follow as needed. Please reconsult of any acute concerns or issues arise (2) Parkinson's disease with dyskinesia: Qualifiers: Fluctuating manifestations: with fluctuating manifestations Qualified Code(s): G20.B2 - Parkinson's disease with dyskinesia, with fluctuations Status: Acute Code(s): G20.B1 - Parkinson's disease with dyskinesia, without mention of fluctuations Assessment and Plan: With long history of Parkinson's disease and requirement for relatively high doses of dopaminergic medications and with history of dyskinesia from the medications, he also has behavioral symptomatology. As far as dyskinesia is concerned, it is mild unlikely due to medication and may not have to be treated. Patient's usually prefer hyper dopaminergic state than hypo. His brain scan has revealed significant frontotemporal degeneration, which typically can impact patient's mood, personality, cognition, ability to make decisions, and even balance and walking. Etiologies likely genetic based with no specific treatment other than symptom management. If possible, FDG brain PET scan can put more light into the diagnosis of frontal lobe dementia syndrome. (3) Mood disorder: Status: Acute Code(s): F39 - Unspecified mood [affective] disorder Plan Mr. Stapleton is a 73 year-old male with hx of Parkinson's with dyskenisia who was sent to [facility] due to combative behaviors and paranoid delusions. It appears pt has been having more frequent falls. [facility]. He became combative when redirected to stay in wheelchair. On the unit, pt presents with severe cognitive/memory impairments and not able to provide much information as to why he is here. He thinks he is at home. He has no recollection about aggression that led to this admission. He also presents with chorea-like movement s/s levodopa/carbidopa which seems to contribute to recent falls. He does not present with paranoid delusions. Discussed with HCP, Kalee increase of clozaril may help with underlying delusions and may decrease some of dyskenisia. Will coordinate care with his OP neurologist and OP psych provider. PLAN 09/20 continue tx. 09/21: see neuro note for assessment and recs. choreo-athetotic mvmts substantial. continue current mgmt for now. Reason for continued inpatient stay Substantial Risk for: inability to function Time Spent With Patient Time: Total time managing care of this patient today __25__ minutes.
[2024-09-21 16:27] LABS: Glucose, Whole Blood 185 mg/dL (60-115)
[2024-09-21 20:00] VITALS: BP 122/82; PULSE 83; RESP 18; TEMP 37.2; O2SAT 98
[2024-09-21 20:30] LABS: Glucose, Whole Blood 228 mg/dL (60-115)
[2024-09-22] MEDS: CARBIDOPA LEVODOPA 1 EACH PO ×4 (05:41→22:18)
[2024-09-22] MEDS: LEVODOPA PO ×5 (05:41→22:18)
[2024-09-22] MEDS: CARBIDOPA PO ×5 (05:41→22:18)
[2024-09-22 06:57] LABS: Glucose, Whole Blood 174 mg/dL (60-115)
[2024-09-22 08:00] VITALS: BP 157/94; PULSE 68; RESP 14; TEMP 37.2
[2024-09-22] MEDS: PIMAVANSERIN 34 MG 34 EACH PO (08:49)
[2024-09-22 11:01] LABS: Glucose, Whole Blood 148 mg/dL (60-115)
[2024-09-22 16:16] LABS: Glucose, Whole Blood 339 mg/dL (60-115)
--- NOTE | 2024-09-22 19:04 | P.PNPSI_ITS ---
Subjective Subjective Date of Service: 09/22/24 Reason For Visit: Delusional D/O Unspec Anxiety D/O Etc Subjective Notes: Conditional Voluntary Healthcare Proxy: Yes Interim History: Pt seen by neurology, no further recommendation in terms of adjusting levodopa- carbidopa for dyskinesia. No overt delusional content nor aggression seen. BP elevated, being followed by hospitalist as BP can be erradic with periods of hotn and hypertension within same day. Review of Systems Review of Systems Denies any shortness of breath, chest pain, dizziness, lightheadedness, abdominal pain or discomfort, nausea vomiting or diarrhea Yes Unobtainable due to mental status Mental Status Exam Mental Status Exam Narrative: Appearance: fair hygiene, in NAD. chorea movements of the trunk, arms Behavior: cooperative Psychomotor: chorea movement Speech: mumbles, difficult to understand at times, minimally spontaneous TP: poverty of thought TC: denies problems MD can help with Mood: ok Affect: grimacing dyskenisia SI: none expressed HI: none expressed VH/AH: no overt signs Delusions: no overt signs Insight/judgment: very impaired x 2. memory/cog: alert, not oriented to place, month nor situation. severe impairments in cognition/memory. Diagnostics Vital Signs (24Hr): Vital Signs - 24 hr 09/21/24 20:00 09/22/24 08:00 Temperature 99 F 99.0 F Pulse Rate 83 68 Respiratory Rate 18 14 Blood Pressure 122/82 157/94 H Pulse Oximetry 98 Oxygen Delivery Method Room Air BMI result Body Mass Index 20.6 Labs 09/21/24 09:44 Labs: Laboratory Results - last 48 hr 09/20/24 09/21/24 09/21/24 21:37 06:17 09:44 Sodium 137 Potassium 3.7 Chloride 105 Carbon Dioxide 26 Anion Gap 10 L BUN 16 Creatinine 0.82 Estim Creat Clear Calc 78.3 Estimated GFR > 60 POC Glucose 243 H 176 H Random Glucose 269 H Calcium 8.4 09/21/24 09/21/24 09/21/24 11:25 16:23 20:26 Sodium Potassium Chloride Carbon Dioxide Anion Gap BUN Creatinine Estim Creat Clear Calc Estimated GFR POC Glucose 195 H 185 H 228 H Random Glucose Calcium 09/22/24 09/22/24 09/22/24 06:48 10:57 16:13 Sodium Potassium Chloride Carbon Dioxide Anion Gap BUN Creatinine Estim Creat Clear Calc Estimated GFR POC Glucose 174 H 148 H 339 H Random Glucose Calcium Medications Medications Current Medications Acetaminophen (Acetaminophen 325 Mg Tablet) 650 mg PO Q6H PRN PRN Reason: Headache/Pain, Scale 1-10 Last Admin: 09/17/24 21:55 Dose: 650 mg Al Hydroxide/Mg Hydroxide (Magnesium Hydrox/Alum Hydrox 30 Ml Oral.Susp) 30 ml PO Q6H PRN PRN Reason: Heartburn/Nausea Apixaban (Apixaban 5 Mg Tablet) 5 mg PO BID [facility] Last Admin: 09/22/24 08:50 Dose: 5 mg Atorvastatin Calcium (Atorvastatin Calcium 40 Mg Tablet) 40 mg PO BEDTIME [facility] Last Admin: 09/21/24 21:59 Dose: 40 mg Captopril (Captopril 12.5 Mg Tablet) 6.25 mg PO BEDTIME [facility]; Protocol Last Admin: 09/21/24 20:38 Dose: 6.25 mg Clozapine (Clozapine 25 Mg Tablet) 25 mg PO BEDTIME [facility] Last Admin: 09/21/24 20:39 Dose: 25 mg Clozapine (Clozapine 25 Mg Tablet) 25 mg PO DAILY [facility] Last Admin: 09/22/24 08:50 Dose: 25 mg Dextrose (Dextrose 50 % 25 Gm/50 Ml Syringe) 25 gm IVPUSH Q15M PRN; Protocol PRN Reason: per Hypoglycemia Standing Ord. Gabapentin (Gabapentin 400 Mg Capsule) 400 mg PO TID [facility] Last Admin: 09/22/24 14:50 Dose: 400 mg Glipizide (Glipizide 5 Mg Tablet) 5 mg PO DAILY [facility] Last Admin: 09/22/24 08:50 Dose: 5 mg Glucose (Glucose Gel 15 Gm Gel..Gram.) 15 gm PO Q15M PRN; Protocol PRN Reason: per Hypoglycemia Standing Ord. Insulin Human Lispro (Insulin Lispro 100 Unit/Ml 3 Ml Vial) 0 unit SUBCUT QIDACHS [facility]; Protocol Last Admin: 09/22/24 16:33 Dose: 8 unit Magnesium Hydroxide (Milk Of Magnesia 30 Ml Oral.Susp) 30 ml PO DAILY PRN PRN Reason: Constipation Multivitamins/Vitamin C (Multivitamin Tablet) 1 tab PO DAILY [facility] Last Admin: 09/22/24 08:50 Dose: 1 tab Pt Own (Carbidopa- Levodopa [Rytary] 23 .75-95 Mg Capsule, Extended Releas 1 cap PO QID@0530,1000,1430,2200 [facility] Last Admin: 09/22/24 14:47 Dose: 1 cap Pt Own (Carbidopa- Levodopa [Rytary] 61 .25-245 Mg Capsule, Extended Relea 2 cap PO QID@0530,1000,1430,1900 [facility] Last Admin: 09/22/24 14:48 Dose: 2 cap Pt Own (Pimavanserin [Nuplazid] 34 Mg Capsule) 34 mg PO DAILY [facility] Last Admin: 09/22/24 08:49 Dose: 34 mg Pt Own (Carbidopa- Levodopa [Rytary] 61 .25-245 Mg Capsule, Extended Relea 1 cap PO DAILY@2200 [facility] Last Admin: 09/21/24 21:59 Dose: 1 cap Oxybutynin Chloride (Oxybutynin Chloride 5 Mg Tablet) 5 mg PO DAILY [facility] Last Admin: 09/22/24 08:50 Dose: 5 mg Polyethylene Glycol (Polyethylene Glycol 3350 17 Gm Powd.Pack) 17 gm PO DAILY [facility] Last Admin: 09/22/24 12:01 Dose: 17 gm Senna (Sennosides 8.6 Mg Tablet) 8.6 mg PO BEDTIME [facility] Last Admin: 09/21/24 20:39 Dose: 8.6 mg Tolterodine Tartrate (Tolterodine Tartrate La 4 Mg Cap.Er.24h) 4 mg PO DAILY [facility] Last Admin: 09/22/24 08:49 Dose: 4 mg Trazodone HCl (Trazodone Hcl 50 Mg Tablet) 50 mg PO BEDTIME MRX1 PRN PRN Reason: Insomnia Last Admin: 09/21/24 20:38 Dose: 50 mg Allergies Allergies Allergy/AdvReac Type Severity Reaction Status Date / Time morphine Allergy Unknown Verified 04/15/24 13:13 Assessment & Plan Assessment & Plan (1) Dementia due to Parkinson's disease with behavioral disturbance: Status: Acute Code(s): G20.A1 - Parkinson's disease without dyskinesia, without mention of fluctuations; F02.818 - Dementia in other diseases classified elsewhere, unspecified severity, with other behavioral disturbance (2) Orthostatic hypotension dysautonomic syndrome: Status: Acute Code(s): I95.1 - Orthostatic hypotension Assessment and Plan: Schizophrenia/Mood disorder Plan per psychiatric team Parkinson's disease with dyskinesia/autonomic orthostatic hypotension, history of dystonia Continue home meds for Parkinson's disease Abdominal binder and RAYMOND stockings while awake Low-dose of captopril at HS Continue to monitor blood pressures Follow labs AFib Not on rate control, discussion needs to occur with primary care regarding discontinuing his anticoagulants due to frequent falls HTN/HLD Follow blood pressures and adjust medications judiciously Restart Home Crestor CKD stage 3 Follow labs- Last RF in March WNL BUN/CREAT stable 09/21/2024 Type 2 DM Continue Glimiperide, Insulin SS. Blood sugars acceptable range. Last A1c 7.4% Recent [facility] admit Thank you for allowing me to participate in the care of this patient. Will follow as needed. Please reconsult of any acute concerns or issues arise (3) Parkinson's disease with dyskinesia: Qualifiers: Fluctuating manifestations: with fluctuating manifestations Qualified Code(s): G20.B2 - Parkinson's disease with dyskinesia, with fluctuations Status: Acute Code(s): G20.B1 - Parkinson's disease with dyskinesia, without mention of fluctuations Assessment and Plan: With long history of Parkinson's disease and requirement for relatively high doses of dopaminergic medications and with history of dyskinesia from the medications, he also has behavioral symptomatology. As far as dyskinesia is concerned, it is mild unlikely due to medication and may not have to be treated. Patient's usually prefer hyper dopaminergic state than hypo. His brain scan has revealed significant frontotemporal degeneration, which typically can impact patient's mood, personality, cognition, ability to make decisions, and even balance and walking. Etiologies likely genetic based with no specific treatment other than symptom management. If possible, FDG brain PET scan can put more light into the diagnosis of frontal lobe dementia syndrome. Plan Mr. Stapleton is a 73 year-old male with hx of Parkinson's with dyskenisia who was sent to [facility] due to combative behaviors and paranoid delusions. It appears pt has been having more frequent falls. [facility] He became combative when redirected to stay in wheelchair. On the unit, pt presents with severe cognitive/memory impairments and not able to provide much information as to why he is here. He thinks he is at home. He has no recollection about aggression that led to this admission. He also presents with chorea-like movement s/s levodopa/carbidopa which seems to contribute to recent falls. He does not present with paranoid delusions. Discussed with HCP, Kalee increase of clozaril may help with underlying delusions and may decrease some of dyskenisia. Will coordinate care with his OP neurologist and OP psych provider. PLAN 09/20 continue tx. 09/21: see neuro note for assessment and recs. choreo-athetotic mvmts substantial. continue current mgmt for now. 09/22 continue tx. Reason for continued inpatient stay Substantial Risk for: inability to function Time Spent With Patient Time: Total time managing care of this patient today ____ minutes.
[2024-09-22 20:00] VITALS: BP 145/86; PULSE 80; TEMP 37; O2SAT 97
[2024-09-22 20:06] LABS: Glucose, Whole Blood 288 mg/dL (60-115)
[2024-09-22 20:09] VITALS: BP 145/86
[2024-09-23] MEDS: CARBIDOPA LEVODOPA 1 EACH PO ×4 (05:44→22:09)
[2024-09-23] MEDS: CARBIDOPA PO ×5 (05:44→22:09)
[2024-09-23] MEDS: LEVODOPA PO ×5 (05:44→22:09)
[2024-09-23 06:10] LABS: Glucose, Whole Blood 183 mg/dL (60-115)
[2024-09-23 08:00] VITALS: BP 177/96; PULSE 77; RESP 16; TEMP 37; O2SAT 97
[2024-09-23] MEDS: PIMAVANSERIN 34 MG 34 EACH PO (08:30)
[2024-09-23 11:24] LABS: Glucose, Whole Blood 275 mg/dL (60-115)
[2024-09-23 16:22] LABS: Glucose, Whole Blood 138 mg/dL (60-115)
[2024-09-23 20:00] VITALS: BP 158/88; PULSE 78; RESP 17; TEMP 37; O2SAT 97
[2024-09-23 20:42] LABS: Glucose, Whole Blood 231 mg/dL (60-115)
[2024-09-23 21:08] VITALS: BP 158/88
--- NOTE | 2024-09-23 21:21 | HO.PSYCHPN ---
Subjective Subjective Date of Service: 09/23/24 Reason For Visit: Delusional D/O Unspec Anxiety D/O Etc Interim History: seated on floor, c/o having passed out and fallen. witnessed by staff, no LOC and no head trauma. able to get up and ambulate to bed with encouragement. per staff, pt's movement disorder behaviors appear inconsistent. no issues otherwise. Mental Status Exam Mental Status Exam Narrative: Appearance: fair hygiene, in NAD. no chorea movements of the trunk, arms Behavior: cooperative Psychomotor: no PMA/PMR Speech: mumbles, difficult to understand at times, minimally spontaneous TP: poverty of thought TC: none notable Mood: not assessed Affect: constricted SI: none expressed HI: none expressed VH/AH: no overt signs Delusions: no overt signs Insight/judgment: very impaired x 2. memory/cog: alert, not oriented to place, month nor situation. severe impairments in cognition/memory. Diagnostics Vital Signs (24Hr): Vital Signs - 24 hr 09/23/24 08:00 09/23/24 20:00 09/23/24 21:08 Temperature 98.6 F 98.6 F Pulse Rate 77 78 Respiratory Rate 16 17 Blood Pressure 177/96 H 158/88 H 158/88 H Pulse Oximetry 97 97 Oxygen Delivery Method Room Air Room Air BMI result Body Mass Index 20.6 Labs 09/21/24 09:44 Labs: Laboratory Results - last 48 hr 09/22/24 09/22/24 09/22/24 06:48 10:57 16:13 POC Glucose 174 H 148 H 339 H 09/22/24 09/23/24 09/23/24 19:57 06:05 11:20 POC Glucose 288 H 183 H 275 H 09/23/24 09/23/24 16:18 20:37 POC Glucose 138 H 231 H Medications Medications Current Medications Acetaminophen (Acetaminophen 325 Mg Tablet) 650 mg PO Q6H PRN PRN Reason: Headache/Pain, Scale 1-10 Last Admin: 09/17/24 21:55 Dose: 650 mg Al Hydroxide/Mg Hydroxide (Magnesium Hydrox/Alum Hydrox 30 Ml Oral.Susp) 30 ml PO Q6H PRN PRN Reason: Heartburn/Nausea Apixaban (Apixaban 5 Mg Tablet) 5 mg PO BID DRE Last Admin: 09/23/24 21:09 Dose: 5 mg Atorvastatin Calcium (Atorvastatin Calcium 40 Mg Tablet) 40 mg PO BEDTIME [facility] Last Admin: 09/23/24 21:08 Dose: 40 mg Captopril (Captopril 12.5 Mg Tablet) 6.25 mg PO BEDTIME [facility]; Protocol Last Admin: 09/23/24 21:08 Dose: 6.25 mg Clozapine (Clozapine 25 Mg Tablet) 25 mg PO BEDTIME [facility] Last Admin: 09/23/24 21:09 Dose: 25 mg Clozapine (Clozapine 25 Mg Tablet) 25 mg PO DAILY [facility] Last Admin: 09/23/24 08:22 Dose: 25 mg Dextrose (Dextrose 50 % 25 Gm/50 Ml Syringe) 25 gm IVPUSH Q15M PRN; Protocol PRN Reason: per Hypoglycemia Standing Ord. Gabapentin (Gabapentin 400 Mg Capsule) 400 mg PO TID [facility] Last Admin: 09/23/24 21:09 Dose: 400 mg Glipizide (Glipizide 5 Mg Tablet) 5 mg PO DAILY [facility] Last Admin: 09/23/24 08:22 Dose: 5 mg Glucose (Glucose Gel 15 Gm Gel..Gram.) 15 gm PO Q15M PRN; Protocol PRN Reason: per Hypoglycemia Standing Ord. Insulin Human Lispro (Insulin Lispro 100 Unit/Ml 3 Ml Vial) 0 unit SUBCUT QIDACHS [facility]; Protocol Last Admin: 09/23/24 21:07 Dose: 4 unit Magnesium Hydroxide (Milk Of Magnesia 30 Ml Oral.Susp) 30 ml PO DAILY PRN PRN Reason: Constipation Multivitamins/Vitamin C (Multivitamin Tablet) 1 tab PO DAILY [facility] Last Admin: 09/23/24 08:22 Dose: 1 tab Pt Own (Carbidopa- Levodopa [Rytary] 23 .75-95 Mg Capsule, Extended Releas 1 cap PO QID@0530,1000,1430,2200 [facility] Last Admin: 09/23/24 14:27 Dose: 1 cap Pt Own (Carbidopa- Levodopa [Rytary] 61 .25-245 Mg Capsule, Extended Relea 2 cap PO QID@0530,1000,1430,1900 [facility] Last Admin: 09/23/24 18:35 Dose: 2 cap Pt Own (Pimavanserin [Nuplazid] 34 Mg Capsule) 34 mg PO DAILY [facility] Last Admin: 09/23/24 08:30 Dose: 34 mg Pt Own (Carbidopa- Levodopa [Rytary] 61 .25-245 Mg Capsule, Extended Relea 1 cap PO DAILY@2200 [facility] Last Admin: 09/22/24 22:18 Dose: 1 cap Oxybutynin Chloride (Oxybutynin Chloride 5 Mg Tablet) 5 mg PO DAILY [facility] Last Admin: 09/23/24 08:22 Dose: 5 mg Polyethylene Glycol (Polyethylene Glycol 3350 17 Gm Powd.Pack) 17 gm PO DAILY [facility] Last Admin: 09/23/24 09:43 Dose: 17 gm Senna (Sennosides 8.6 Mg Tablet) 8.6 mg PO BEDTIME [facility] Last Admin: 09/23/24 21:09 Dose: 8.6 mg Tolterodine Tartrate (Tolterodine Tartrate La 4 Mg Cap.Er.24h) 4 mg PO DAILY [facility] Last Admin: 09/23/24 08:22 Dose: 4 mg Trazodone HCl (Trazodone Hcl 50 Mg Tablet) 50 mg PO BEDTIME MRX1 PRN PRN Reason: Insomnia Last Admin: 09/21/24 20:38 Dose: 50 mg Allergies Allergies Allergy/AdvReac Type Severity Reaction Status Date / Time morphine Allergy Unknown Verified 04/15/24 13:13 Assessment & Plan Assessment & Plan (1) Dementia due to Parkinson's disease with behavioral disturbance: Status: Acute Code(s): G20.A1 - Parkinson's disease without dyskinesia, without mention of fluctuations; F02.818 - Dementia in other diseases classified elsewhere, unspecified severity, with other behavioral disturbance (2) Orthostatic hypotension dysautonomic syndrome: Status: Acute Code(s): I95.1 - Orthostatic hypotension Assessment and Plan: Schizophrenia/Mood disorder Plan per psychiatric team Parkinson's disease with dyskinesia/autonomic orthostatic hypotension, history of dystonia Continue home meds for Parkinson's disease Abdominal binder and RAYMOND stockings while awake Low-dose of captopril at HS Continue to monitor blood pressures Follow labs AFib Not on rate control, discussion needs to occur with primary care regarding discontinuing his anticoagulants due to frequent falls HTN/HLD Follow blood pressures and adjust medications judiciously Restart Home Crestor CKD stage 3 Follow labs- Last RF in March WNL BUN/CREAT stable 09/21/2024 Type 2 DM Continue Glimiperide, Insulin SS. Blood sugars acceptable range. Last A1c 7.4% Recent [facility] admit Thank you for allowing me to participate in the care of this patient. Will follow as needed. Please reconsult of any acute concerns or issues arise (3) Parkinson's disease with dyskinesia: Qualifiers: Fluctuating manifestations: with fluctuating manifestations Qualified Code(s): G20.B2 - Parkinson's disease with dyskinesia, with fluctuations Status: Acute Code(s): G20.B1 - Parkinson's disease with dyskinesia, without mention of fluctuations Assessment and Plan: With long history of Parkinson's disease and requirement for relatively high doses of dopaminergic medications and with history of dyskinesia from the medications, he also has behavioral symptomatology. As far as dyskinesia is concerned, it is mild unlikely due to medication and may not have to be treated. Patient's usually prefer hyper dopaminergic state than hypo. His brain scan has revealed significant frontotemporal degeneration, which typically can impact patient's mood, personality, cognition, ability to make decisions, and even balance and walking. Etiologies likely genetic based with no specific treatment other than symptom management. If possible, FDG brain PET scan can put more light into the diagnosis of frontal lobe dementia syndrome. Plan Mr. Stapleton is a 73 year-old male with hx of Parkinson's with dyskenisia who was sent to [facility] due to combative behaviors and paranoid delusions. It appears pt has been having more frequent falls. He lives at a [facility]. He became combative when redirected to stay in wheelchair. On the unit, pt presents with severe cognitive/memory impairments and not able to provide much information as to why he is here. He thinks he is at home. He has no recollection about aggression that led to this admission. He also presents with chorea-like movement s/s levodopa/carbidopa which seems to contribute to recent falls. He does not present with paranoid delusions. Discussed with HCP, Kalee increase of clozaril may help with underlying delusions and may decrease some of dyskenisia. Will coordinate care with his OP neurologist and OP psych provider. PLAN 09/20 continue tx. 09/21: see neuro note for assessment and recs. choreo-athetotic mvmts substantial. continue current mgmt for now. 09/22 continue tx. 09/23: continue current mgmt Reason for continued inpatient stay Substantial Risk for: inability to function Time Spent With Patient Time: Total time managing care of this patient today ____ minutes.
[2024-09-24] MEDS: LEVODOPA PO ×5 (05:39→22:13)
[2024-09-24] MEDS: CARBIDOPA PO ×5 (05:39→22:13)
[2024-09-24] MEDS: CARBIDOPA LEVODOPA 1 EACH PO ×4 (05:39→22:13)
[2024-09-24 06:52] LABS: Glucose, Whole Blood 217 mg/dL (60-115)
[2024-09-24 07:50] LABS: Neut%MD 80.6 %; WBCANC 12.4 X10*3/uL
[2024-09-24 08:25] VITALS: BP 144/86; PULSE 83; RESP 18; TEMP 36.8; O2SAT 96
[2024-09-24] MEDS: PIMAVANSERIN 34 MG 34 EACH PO (09:14)
[2024-09-24 11:32] LABS: Glucose, Whole Blood 205 mg/dL (60-115)
--- NOTE | 2024-09-24 13:01 | P.PNPSI_ITS ---
Subjective Subjective Date of Service: 09/24/24 Reason For Visit: Delusional D/O Unspec Anxiety D/O Etc Interim History: resting in bed, 1:1 at bedside. no complaints or requests. Mental Status Exam Mental Status Exam Narrative: Appearance: fair hygiene, in NAD. no chorea movements of the trunk, arms Behavior: cooperative Psychomotor: no PMA/PMR Speech: mumbles, difficult to understand at times, minimally spontaneous TP: poverty of thought TC: none notable Mood: not assessed Affect: constricted SI: none expressed HI: none expressed VH/AH: no overt signs Delusions: no overt signs Insight/judgment: very impaired x 2. memory/cog: alert, not oriented to place, month nor situation. severe impairments in cognition/memory. Diagnostics Vital Signs (24Hr): Vital Signs - 24 hr 09/23/24 20:00 09/23/24 21:08 09/24/24 08:25 Temperature 98.6 F 98.2 F Pulse Rate 78 83 Respiratory Rate 17 18 Blood Pressure 158/88 H 158/88 H 144/86 H Pulse Oximetry 97 96 Oxygen Delivery Method Room Air Room Air BMI result Body Mass Index 20.6 Labs 09/21/24 09:44 Labs: Laboratory Results - last 48 hr 09/22/24 09/22/24 09/23/24 16:13 19:57 06:05 Absolute Neuts (auto) POC Glucose 339 H 288 H 183 H 09/23/24 09/23/24 09/23/24 11:20 16:18 20:37 Absolute Neuts (auto) POC Glucose 275 H 138 H 231 H 09/24/24 09/24/24 09/24/24 06:30 07:36 11:27 Absolute Neuts (auto) 10.0 H POC Glucose 217 H 205 H Medications Medications Current Medications Acetaminophen (Acetaminophen 325 Mg Tablet) 650 mg PO Q6H PRN PRN Reason: Headache/Pain, Scale 1-10 Last Admin: 09/17/24 21:55 Dose: 650 mg Al Hydroxide/Mg Hydroxide (Magnesium Hydrox/Alum Hydrox 30 Ml Oral.Susp) 30 ml PO Q6H PRN PRN Reason: Heartburn/Nausea Apixaban (Apixaban 5 Mg Tablet) 5 mg PO BID [facility] Last Admin: 09/24/24 09:13 Dose: 5 mg Atorvastatin Calcium (Atorvastatin Calcium 40 Mg Tablet) 40 mg PO BEDTIME [facility] Last Admin: 09/23/24 21:08 Dose: 40 mg Captopril (Captopril 12.5 Mg Tablet) 6.25 mg PO BEDTIME [facility]; Protocol Last Admin: 09/23/24 21:08 Dose: 6.25 mg Clozapine (Clozapine 25 Mg Tablet) 25 mg PO BEDTIME [facility] Last Admin: 09/23/24 21:09 Dose: 25 mg Clozapine (Clozapine 25 Mg Tablet) 25 mg PO DAILY [facility] Last Admin: 09/24/24 09:13 Dose: 25 mg Dextrose (Dextrose 50 % 25 Gm/50 Ml Syringe) 25 gm IVPUSH Q15M PRN; Protocol PRN Reason: per Hypoglycemia Standing Ord. Gabapentin (Gabapentin 400 Mg Capsule) 400 mg PO TID [facility] Last Admin: 09/24/24 09:13 Dose: 400 mg Glipizide (Glipizide 5 Mg Tablet) 5 mg PO DAILY [facility] Last Admin: 09/24/24 09:13 Dose: 5 mg Glucose (Glucose Gel 15 Gm Gel..Gram.) 15 gm PO Q15M PRN; Protocol PRN Reason: per Hypoglycemia Standing Ord. Insulin Human Lispro (Insulin Lispro 100 Unit/Ml 3 Ml Vial) 0 unit SUBCUT QIDACHS [facility]; Protocol Last Admin: 09/24/24 11:36 Dose: 4 unit Magnesium Hydroxide (Milk Of Magnesia 30 Ml Oral.Susp) 30 ml PO DAILY PRN PRN Reason: Constipation Multivitamins/Vitamin C (Multivitamin Tablet) 1 tab PO DAILY [facility] Last Admin: 09/24/24 09:13 Dose: 1 tab Pt Own (Carbidopa- Levodopa [Rytary] 23 .75-95 Mg Capsule, Extended Releas 1 cap PO QID@0530,1000,1430,2200 [facility] Last Admin: 09/24/24 09:14 Dose: 1 cap Pt Own (Carbidopa- Levodopa [Rytary] 61 .25-245 Mg Capsule, Extended Relea 2 cap PO QID@0530,1000,1430,1900 [facility] Last Admin: 09/24/24 09:15 Dose: 2 cap Pt Own (Pimavanserin [Nuplazid] 34 Mg Capsule) 34 mg PO DAILY [facility] Last Admin: 09/24/24 09:14 Dose: 34 mg Pt Own (Carbidopa- Levodopa [Rytary] 61 .25-245 Mg Capsule, Extended Relea 1 cap PO DAILY@2200 [facility] Last Admin: 09/23/24 22:09 Dose: 1 cap Oxybutynin Chloride (Oxybutynin Chloride 5 Mg Tablet) 5 mg PO DAILY [facility] Last Admin: 09/24/24 09:13 Dose: 5 mg Polyethylene Glycol (Polyethylene Glycol 3350 17 Gm Powd.Pack) 17 gm PO DAILY [facility] Last Admin: 09/24/24 09:15 Dose: 17 gm Senna (Sennosides 8.6 Mg Tablet) 8.6 mg PO BEDTIME [facility] Last Admin: 09/23/24 21:09 Dose: 8.6 mg Tolterodine Tartrate (Tolterodine Tartrate La 4 Mg Cap.Er.24h) 4 mg PO DAILY [facility] Last Admin: 09/24/24 09:12 Dose: 4 mg Trazodone HCl (Trazodone Hcl 50 Mg Tablet) 50 mg PO BEDTIME MRX1 PRN PRN Reason: Insomnia Last Admin: 09/21/24 20:38 Dose: 50 mg Allergies Allergies Allergy/AdvReac Type Severity Reaction Status Date / Time morphine Allergy Unknown Verified 04/15/24 13:13 Assessment & Plan Assessment & Plan (1) Dementia due to Parkinson's disease with behavioral disturbance: Status: Acute Code(s): G20.A1 - Parkinson's disease without dyskinesia, without mention of fluctuations; F02.818 - Dementia in other diseases classified elsewhere, unspecified severity, with other behavioral disturbance (2) Orthostatic hypotension dysautonomic syndrome: Status: Acute Code(s): I95.1 - Orthostatic hypotension Assessment and Plan: Schizophrenia/Mood disorder Plan per psychiatric team Parkinson's disease with dyskinesia/autonomic orthostatic hypotension, history of dystonia Continue home meds for Parkinson's disease Abdominal binder and RAYMOND stockings while awake Low-dose of captopril at HS Continue to monitor blood pressures Follow labs AFib Not on rate control, discussion needs to occur with primary care regarding discontinuing his anticoagulants due to frequent falls HTN/HLD Follow blood pressures and adjust medications judiciously Restart Home Crestor CKD stage 3 Follow labs- Last RF in March WNL BUN/CREAT stable 09/21/2024 Type 2 DM Continue Glimiperide, Insulin SS. Blood sugars acceptable range. Last A1c 7.4% Recent [facility] admit Thank you for allowing me to participate in the care of this patient. Will follow as needed. Please reconsult of any acute concerns or issues arise (3) Parkinson's disease with dyskinesia: Qualifiers: Fluctuating manifestations: with fluctuating manifestations Qualified Code(s): G20.B2 - Parkinson's disease with dyskinesia, with fluctuations Status: Acute Code(s): G20.B1 - Parkinson's disease with dyskinesia, without mention of fluctuations Assessment and Plan: With long history of Parkinson's disease and requirement for relatively high doses of dopaminergic medications and with history of dyskinesia from the medications, he also has behavioral symptomatology. As far as dyskinesia is concerned, it is mild unlikely due to medication and may not have to be treated. Patient's usually prefer hyper dopaminergic state than hypo. His brain scan has revealed significant frontotemporal degeneration, which typically can impact patient's mood, personality, cognition, ability to make decisions, and even balance and walking. Etiologies likely genetic based with no specific treatment other than symptom management. If possible, FDG brain PET scan can put more light into the diagnosis of frontal lobe dementia syndrome. Plan Mr. Stapleton is a 73 year-old male with hx of Parkinson's with dyskenisia who was sent to [facility] due to combative behaviors and paranoid delusions. It appears pt has been having more frequent falls. [facility] He became combative when redirected to stay in wheelchair. On the unit, pt presents with severe cognitive/memory impairments and not able to provide much information as to why he is here. He thinks he is at home. He has no recollection about aggression that led to this admission. He also presents with chorea-like movement s/s levodopa/carbidopa which seems to contribute to recent falls. He does not present with paranoid delusions. Discussed with HCP, Kalee increase of clozaril may help with underlying delusions and may decrease some of dyskenisia. Will coordinate care with his OP neurologist and OP psych provider. PLAN 09/20 continue tx. 09/21: see neuro note for assessment and recs. choreo-athetotic mvmts substantial. continue current mgmt for now. 09/22 continue tx. 09/23: continue current mgmt 09/24: no abnormal movements noted for a second day. continue current mgmt. Reason for continued inpatient stay Substantial Risk for: inability to function Time Spent With Patient Time: Total time managing care of this patient today ____ minutes.
[2024-09-24 16:16] LABS: Glucose, Whole Blood 196 mg/dL (60-115)
[2024-09-24 20:00] VITALS: BP 173/94; PULSE 73; RESP 16; TEMP 37; O2SAT 97
[2024-09-24 20:08] LABS: Glucose, Whole Blood 219 mg/dL (60-115)
[2024-09-24 20:12] VITALS: BP 173/94
[2024-09-25] MEDS: CARBIDOPA PO ×5 (05:34→21:53)
[2024-09-25] MEDS: LEVODOPA PO ×5 (05:34→21:53)
[2024-09-25] MEDS: CARBIDOPA LEVODOPA 1 EACH PO ×4 (05:35→21:53)
[2024-09-25 06:53] LABS: Glucose, Whole Blood 192 mg/dL (60-115)
[2024-09-25 08:00] VITALS: BP 127/68; PULSE 82; RESP 18; TEMP 37; O2SAT 96
[2024-09-25] MEDS: PIMAVANSERIN 34 MG 34 EACH PO (08:14)
--- NOTE | 2024-09-25 09:44 | HO.PSYCHPN ---
Subjective Subjective Date of Service: 09/25/24 Reason For Visit: Delusional D/O Unspec Anxiety D/O Etc Interim History: writhing in chair, 1:1 by side. per 1:1 pt c/o painful urination. pt confirms. no other complaints or requests. per staff, POC 192. no issues. Mental Status Exam Mental Status Exam Narrative: Appearance: fair hygiene, in NAD. chorea movements of the trunk. Behavior: cooperative Psychomotor: chorea Speech: mumbles, difficult to understand at times, minimally spontaneous TP: poverty of thought TC: none notable Mood: not assessed Affect: constricted SI: none expressed HI: none expressed VH/AH: no overt signs Delusions: no overt signs Insight/judgment: very impaired x 2. memory/cog: alert, not oriented to place, month nor situation. severe impairments in cognition/memory. Diagnostics Vital Signs (24Hr): Vital Signs - 24 hr 09/24/24 20:00 09/24/24 20:12 Temperature 98.6 F Pulse Rate 73 Respiratory Rate 16 Blood Pressure 173/94 H 173/94 H Pulse Oximetry 97 Oxygen Delivery Method Room Air BMI result Body Mass Index 20.6 Labs 09/21/24 09:44 Labs: Laboratory Results - last 48 hr 09/23/24 09/23/24 09/23/24 11:20 16:18 20:37 Absolute Neuts (auto) POC Glucose 275 H 138 H 231 H 09/24/24 09/24/24 09/24/24 06:30 07:36 11:27 Absolute Neuts (auto) 10.0 H POC Glucose 217 H 205 H 09/24/24 09/24/24 09/25/24 16:12 20:04 06:33 Absolute Neuts (auto) POC Glucose 196 H 219 H 192 H Medications Medications Current Medications Acetaminophen (Acetaminophen 325 Mg Tablet) 650 mg PO Q6H PRN PRN Reason: Headache/Pain, Scale 1-10 Last Admin: 09/17/24 21:55 Dose: 650 mg Al Hydroxide/Mg Hydroxide (Magnesium Hydrox/Alum Hydrox 30 Ml Oral.Susp) 30 ml PO Q6H PRN PRN Reason: Heartburn/Nausea Apixaban (Apixaban 5 Mg Tablet) 5 mg PO BID [facility] Last Admin: 09/25/24 08:13 Dose: 5 mg Atorvastatin Calcium (Atorvastatin Calcium 40 Mg Tablet) 40 mg PO BEDTIME [facility] Last Admin: 09/24/24 20:12 Dose: 40 mg Captopril (Captopril 12.5 Mg Tablet) 6.25 mg PO BEDTIME [facility]; Protocol Last Admin: 09/24/24 20:12 Dose: 6.25 mg Clozapine (Clozapine 25 Mg Tablet) 25 mg PO BEDTIME [facility] Last Admin: 09/24/24 20:12 Dose: 25 mg Clozapine (Clozapine 25 Mg Tablet) 25 mg PO DAILY [facility] Last Admin: 09/25/24 08:13 Dose: 25 mg Dextrose (Dextrose 50 % 25 Gm/50 Ml Syringe) 25 gm IVPUSH Q15M PRN; Protocol PRN Reason: per Hypoglycemia Standing Ord. Gabapentin (Gabapentin 400 Mg Capsule) 400 mg PO TID [facility] Last Admin: 09/25/24 08:13 Dose: 400 mg Glipizide (Glipizide 5 Mg Tablet) 5 mg PO DAILY [facility] Last Admin: 09/25/24 08:13 Dose: 5 mg Glucose (Glucose Gel 15 Gm Gel..Gram.) 15 gm PO Q15M PRN; Protocol PRN Reason: per Hypoglycemia Standing Ord. Insulin Human Lispro (Insulin Lispro 100 Unit/Ml 3 Ml Vial) 0 unit SUBCUT QIDACHS [facility]; Protocol Last Admin: 09/25/24 07:31 Dose: 2 unit Magnesium Hydroxide (Milk Of Magnesia 30 Ml Oral.Susp) 30 ml PO DAILY PRN PRN Reason: Constipation Multivitamins/Vitamin C (Multivitamin Tablet) 1 tab PO DAILY [facility] Last Admin: 09/25/24 08:13 Dose: 1 tab Pt Own (Carbidopa- Levodopa [Rytary] 23 .75-95 Mg Capsule, Extended Releas 1 cap PO QID@0530,1000,1430,2200 [facility] Last Admin: 09/25/24 05:35 Dose: 1 cap Pt Own (Carbidopa- Levodopa [Rytary] 61 .25-245 Mg Capsule, Extended Relea 2 cap PO QID@0530,1000,1430,1900 [facility] Last Admin: 09/25/24 05:34 Dose: 2 cap Pt Own (Pimavanserin [Nuplazid] 34 Mg Capsule) 34 mg PO DAILY [facility] Last Admin: 09/25/24 08:14 Dose: 34 mg Pt Own (Carbidopa- Levodopa [Rytary] 61 .25-245 Mg Capsule, Extended Relea 1 cap PO DAILY@2200 [facility] Last Admin: 09/24/24 22:13 Dose: 1 cap Oxybutynin Chloride (Oxybutynin Chloride 5 Mg Tablet) 5 mg PO DAILY [facility] Last Admin: 09/25/24 08:13 Dose: 5 mg Polyethylene Glycol (Polyethylene Glycol 3350 17 Gm Powd.Pack) 17 gm PO DAILY [facility] Last Admin: 09/25/24 08:14 Dose: 17 gm Senna (Sennosides 8.6 Mg Tablet) 8.6 mg PO BEDTIME [facility] Last Admin: 09/24/24 20:12 Dose: 8.6 mg Tolterodine Tartrate (Tolterodine Tartrate La 4 Mg Cap.Er.24h) 4 mg PO DAILY [facility] Last Admin: 09/25/24 08:13 Dose: 4 mg Trazodone HCl (Trazodone Hcl 50 Mg Tablet) 50 mg PO BEDTIME [facility]X1 PRN PRN Reason: Insomnia Last Admin: 09/21/24 20:38 Dose: 50 mg Allergies Allergies Allergy/AdvReac Type Severity Reaction Status Date / Time morphine Allergy Unknown Verified 04/15/24 13:13 Assessment & Plan Assessment & Plan (1) Dementia due to Parkinson's disease with behavioral disturbance: Status: Acute Code(s): G20.A1 - Parkinson's disease without dyskinesia, without mention of fluctuations; F02.818 - Dementia in other diseases classified elsewhere, unspecified severity, with other behavioral disturbance (2) Orthostatic hypotension dysautonomic syndrome: Status: Acute Code(s): I95.1 - Orthostatic hypotension Assessment and Plan: Schizophrenia/Mood disorder Plan per psychiatric team Parkinson's disease with dyskinesia/autonomic orthostatic hypotension, history of dystonia Continue home meds for Parkinson's disease Abdominal binder and RAYMOND stockings while awake Low-dose of captopril at HS Continue to monitor blood pressures Follow labs AFib Not on rate control, discussion needs to occur with primary care regarding discontinuing his anticoagulants due to frequent falls HTN/HLD Follow blood pressures and adjust medications judiciously Restart Home Crestor CKD stage 3 Follow labs- Last RF in March WNL BUN/CREAT stable 09/21/2024 Type 2 DM Continue Glimiperide, Insulin SS. Blood sugars acceptable range. Last A1c 7.4% Recent [facility] admit Thank you for allowing me to participate in the care of this patient. Will follow as needed. Please reconsult of any acute concerns or issues arise (3) Parkinson's disease with dyskinesia: Qualifiers: Fluctuating manifestations: with fluctuating manifestations Qualified Code(s): G20.B2 - Parkinson's disease with dyskinesia, with fluctuations Status: Acute Code(s): G20.B1 - Parkinson's disease with dyskinesia, without mention of fluctuations Assessment and Plan: With long history of Parkinson's disease and requirement for relatively high doses of dopaminergic medications and with history of dyskinesia from the medications, he also has behavioral symptomatology. As far as dyskinesia is concerned, it is mild unlikely due to medication and may not have to be treated. Patient's usually prefer hyper dopaminergic state than hypo. His brain scan has revealed significant frontotemporal degeneration, which typically can impact patient's mood, personality, cognition, ability to make decisions, and even balance and walking. Etiologies likely genetic based with no specific treatment other than symptom management. If possible, FDG brain PET scan can put more light into the diagnosis of frontal lobe dementia syndrome. Plan Mr. Stapleton is a 73 year-old male with hx of Parkinson's with dyskenisia who was sent to [facility] due to combative behaviors and paranoid delusions. It appears pt has been having more frequent falls. He lives at a [facility]. He became combative when redirected to stay in wheelchair. On the unit, pt presents with severe cognitive/memory impairments and not able to provide much information as to why he is here. He thinks he is at home. He has no recollection about aggression that led to this admission. He also presents with chorea-like movement s/s levodopa/carbidopa which seems to contribute to recent falls. He does not present with paranoid delusions. Discussed with HCP, Kalee increase of clozaril may help with underlying delusions and may decrease some of dyskenisia. Will coordinate care with his OP neurologist and OP psych provider. PLAN 09/20 continue tx. 09/21: see neuro note for assessment and recs. choreo-athetotic mvmts substantial. continue current mgmt for now. 09/22 continue tx. 09/23: continue current mgmt 09/24: no abnormal movements noted for a second day. continue current mgmt. 09/25: writhing movements of the trunk while seated in manuel chair. reporting dysuria; check UA. otherwise continue current mgmt. Reason for continued inpatient stay Substantial Risk for: inability to function Time Spent With Patient Time: Total time managing care of this patient today ____ minutes.
[2024-09-25 12:00] LABS: Glucose, Whole Blood 208 mg/dL (60-115)
[2024-09-25 16:27] LABS: Glucose, Whole Blood 195 mg/dL (60-115)
[2024-09-25 19:44] VITALS: BP 134/80
[2024-09-25 20:00] VITALS: BP 134/80; PULSE 91; RESP 18; TEMP 36.6; O2SAT 98
[2024-09-25 20:28] LABS: Glucose, Whole Blood 244 mg/dL (60-115)
[2024-09-26] MEDS: CARBIDOPA LEVODOPA 1 EACH PO ×4 (05:28→21:57)
[2024-09-26] MEDS: CARBIDOPA PO ×5 (05:37→21:57)
[2024-09-26] MEDS: LEVODOPA PO ×5 (05:37→21:57)
[2024-09-26 05:59] LABS: Appearance Urine Cloudy; Glucose Urine UA 100 mg/dL (Negative); PH 5.5 (5.0-9.0); Specific Gravity - Urine 1.025 (1.005-1.025); UMIC TRIGGER UACC YES
[2024-09-26 06:08] LABS: UACC Culture Trigger YES
[2024-09-26 06:53] LABS: Glucose, Whole Blood 183 mg/dL (60-115)
[2024-09-26 08:00] VITALS: BP 112/73; PULSE 77; RESP 18; TEMP 36.7; O2SAT 97
--- NOTE | 2024-09-26 08:52 | P.PNPSI_ITS ---
Subjective Subjective Date of Service: 09/26/24 Reason For Visit: Delusional D/O Unspec Anxiety D/O Etc Subjective Notes: Conditional Voluntary Healthcare Proxy: Yes Interim History: UA completed and shows s/s of UTI. pt started on ceftin 250mg po BID. Pt on a one to one due to falls and dyskinesia. No overt delusional content nor psychosis. No combative behaviors. tolerating clozapine 25mg po BID. We had meeting with son and his mother who is pt's HCP. Discussed medication changes, neurologist recommendation and aftercare plans. plan to d/c back to . completed MOLST- pt is now dnr/dni Review of Systems Review of Systems Denies any shortness of breath, chest pain, dizziness, lightheadedness, abdominal pain or discomfort, nausea vomiting or diarrhea Yes Unobtainable due to mental status Mental Status Exam Mental Status Exam Narrative: Appearance: fair hygiene, in NAD. chorea movements of the trunk. Behavior: cooperative Psychomotor: chorea Speech: mumbles, difficult to understand at times, minimally spontaneous TP: poverty of thought TC: none notable Mood: not assessed Affect: constricted SI: none expressed HI: none expressed VH/AH: no overt signs Delusions: no overt signs Insight/judgment: very impaired x 2. memory/cog: alert, not oriented to place, month nor situation. severe impairments in cognition/memory. Diagnostics Vital Signs (24Hr): Vital Signs - 24 hr 09/25/24 19:44 09/25/24 20:00 Temperature 97.9 F Pulse Rate 91 Respiratory Rate 18 Blood Pressure 134/80 134/80 Pulse Oximetry 98 Oxygen Delivery Method Room Air BMI result Body Mass Index 20.6 Labs 09/21/24 09:44 Labs: Laboratory Results - last 48 hr 09/24/24 09/24/24 09/24/24 11:27 16:12 20:04 POC Glucose 205 H 196 H 219 H Urine Color Urine Appearance Urine pH Ur Specific [place] Urine Protein Urine Glucose (UA) Urine Ketones Urine Blood Urine Nitrite Ur Leukocyte Esterase Urine RBC Urine WBC Ur Squamous Epith Cells Urine Bacteria Hyaline Casts 09/25/24 09/25/24 09/25/24 06:33 11:55 16:18 POC Glucose 192 H 208 H 195 H Urine Color Urine Appearance Urine pH Ur Specific [place] Urine Protein Urine Glucose (UA) Urine Ketones Urine Blood Urine Nitrite Ur Leukocyte Esterase Urine RBC Urine WBC Ur Squamous Epith Cells Urine Bacteria Hyaline Casts 09/25/24 09/26/24 09/26/24 20:22 05:45 06:22 POC Glucose 244 H 183 H Urine Color Yellow Urine Appearance Cloudy Urine pH 5.5 Ur Specific [place] 1.025 Urine Protein 30 (1+) H Urine Glucose (UA) 100 H Urine Ketones 15 Urine Blood Negative Urine Nitrite Negative Ur Leukocyte Esterase Large (3+) H Urine RBC 0-2 Urine WBC >50 H Ur Squamous Epith Cells 0-2 Urine Bacteria 3+ Hyaline Casts 0-2 Medications Medications Current Medications Acetaminophen (Acetaminophen 325 Mg Tablet) 650 mg PO Q6H PRN PRN Reason: Headache/Pain, Scale 1-10 Last Admin: 09/17/24 21:55 Dose: 650 mg Al Hydroxide/Mg Hydroxide (Magnesium Hydrox/Alum Hydrox 30 Ml Oral.Susp) 30 ml PO Q6H PRN PRN Reason: Heartburn/Nausea Apixaban (Apixaban 5 Mg Tablet) 5 mg PO BID [facility] Last Admin: 09/25/24 19:44 Dose: 5 mg Atorvastatin Calcium (Atorvastatin Calcium 40 Mg Tablet) 40 mg PO BEDTIME [facility] Last Admin: 09/25/24 19:44 Dose: 40 mg Captopril (Captopril 12.5 Mg Tablet) 6.25 mg PO BEDTIME [facility]; Protocol Last Admin: 09/25/24 19:44 Dose: 6.25 mg Clozapine (Clozapine 25 Mg Tablet) 25 mg PO BEDTIME [facility] Last Admin: 09/25/24 19:44 Dose: 25 mg Clozapine (Clozapine 25 Mg Tablet) 25 mg PO DAILY [facility] Last Admin: 09/25/24 08:13 Dose: 25 mg Dextrose (Dextrose 50 % 25 Gm/50 Ml Syringe) 25 gm IVPUSH Q15M PRN; Protocol PRN Reason: per Hypoglycemia Standing Ord. Gabapentin (Gabapentin 400 Mg Capsule) 400 mg PO TID [facility] Last Admin: 09/25/24 19:44 Dose: 400 mg Glipizide (Glipizide 5 Mg Tablet) 5 mg PO DAILY [facility] Last Admin: 09/25/24 08:13 Dose: 5 mg Glucose (Glucose Gel 15 Gm Gel..Gram.) 15 gm PO Q15M PRN; Protocol PRN Reason: per Hypoglycemia Standing Ord. Insulin Human Lispro (Insulin Lispro 100 Unit/Ml 3 Ml Vial) 0 unit SUBCUT QIDACHS [facility]; Protocol Last Admin: 09/25/24 20:28 Dose: 4 unit Magnesium Hydroxide (Milk Of Magnesia 30 Ml Oral.Susp) 30 ml PO DAILY PRN PRN Reason: Constipation Multivitamins/Vitamin C (Multivitamin Tablet) 1 tab PO DAILY [facility] Last Admin: 09/25/24 08:13 Dose: 1 tab Pt Own (Carbidopa- Levodopa [Rytary] 23 .75-95 Mg Capsule, Extended Releas 1 cap PO QID@0530,1000,1430,2200 [facility] Last Admin: 09/26/24 05:28 Dose: 1 cap Pt Own (Carbidopa- Levodopa [Rytary] 61 .25-245 Mg Capsule, Extended Relea 2 cap PO QID@0530,1000,1430,1900 [facility] Last Admin: 09/26/24 05:37 Dose: 2 cap Pt Own (Pimavanserin [Nuplazid] 34 Mg Capsule) 34 mg PO DAILY [facility] Last Admin: 09/25/24 08:14 Dose: 34 mg Pt Own (Carbidopa- Levodopa [Rytary] 61 .25-245 Mg Capsule, Extended Relea 1 cap PO DAILY@2200 [facility] Last Admin: 09/25/24 21:53 Dose: 1 cap Oxybutynin Chloride (Oxybutynin Chloride 5 Mg Tablet) 5 mg PO DAILY [facility] Last Admin: 09/25/24 08:13 Dose: 5 mg Polyethylene Glycol (Polyethylene Glycol 3350 17 Gm Powd.Pack) 17 gm PO DAILY [facility] Last Admin: 09/25/24 08:14 Dose: 17 gm Senna (Sennosides 8.6 Mg Tablet) 8.6 mg PO BEDTIME [facility] Last Admin: 09/25/24 19:45 Dose: 8.6 mg Tolterodine Tartrate (Tolterodine Tartrate La 4 Mg Cap.Er.24h) 4 mg PO DAILY [facility] Last Admin: 09/25/24 08:13 Dose: 4 mg Trazodone HCl (Trazodone Hcl 50 Mg Tablet) 50 mg PO BEDTIME [facility]X1 PRN PRN Reason: Insomnia Last Admin: 09/21/24 20:38 Dose: 50 mg Allergies Allergies Allergy/AdvReac Type Severity Reaction Status Date / Time morphine Allergy Unknown Verified 04/15/24 13:13 Assessment & Plan Assessment & Plan (1) Dementia due to Parkinson's disease with behavioral disturbance: Status: Acute Code(s): G20.A1 - Parkinson's disease without dyskinesia, without mention of fluctuations; F02.818 - Dementia in other diseases classified elsewhere, unspecified severity, with other behavioral disturbance (2) Orthostatic hypotension dysautonomic syndrome: Status: Acute Code(s): I95.1 - Orthostatic hypotension Assessment and Plan: Schizophrenia/Mood disorder Plan per psychiatric team Parkinson's disease with dyskinesia/autonomic orthostatic hypotension, history of dystonia Continue home meds for Parkinson's disease Abdominal binder and RAYMOND stockings while awake Low-dose of captopril at HS Continue to monitor blood pressures Follow labs AFib Not on rate control, discussion needs to occur with primary care regarding discontinuing his anticoagulants due to frequent falls HTN/HLD Follow blood pressures and adjust medications judiciously Restart Home Crestor CKD stage 3 Follow labs- Last RF in March WNL BUN/CREAT stable 09/21/2024 Type 2 DM Continue Glimiperide, Insulin SS. Blood sugars acceptable range. Last A1c 7.4% Recent [facility] admit Thank you for allowing me to participate in the care of this patient. Will follow as needed. Please reconsult of any acute concerns or issues arise (3) Parkinson's disease with dyskinesia: Qualifiers: Fluctuating manifestations: with fluctuating manifestations Qualified Code(s): G20.B2 - Parkinson's disease with dyskinesia, with fluctuations Status: Acute Code(s): G20.B1 - Parkinson's disease with dyskinesia, without mention of fluctuations Assessment and Plan: With long history of Parkinson's disease and requirement for relatively high doses of dopaminergic medications and with history of dyskinesia from the medications, he also has behavioral symptomatology. As far as dyskinesia is concerned, it is mild unlikely due to medication and may not have to be treated. Patient's usually prefer hyper dopaminergic state than hypo. His brain scan has revealed significant frontotemporal degeneration, which typically can impact patient's mood, personality, cognition, ability to make decisions, and even balance and walking. Etiologies likely genetic based with no specific treatment other than symptom management. If possible, FDG brain PET scan can put more light into the diagnosis of frontal lobe dementia syndrome. Plan Mr. Stapleton is a 73 year-old male with hx of Parkinson's with dyskenisia who was sent to [facility] due to combative behaviors and paranoid delusions. It appears pt has been having more frequent falls. He lives at a care home. He became combative when redirected to stay in wheelchair. On the unit, pt presents with severe cognitive/memory impairments and not able to provide much information as to why he is here. He thinks he is at home. He has no recollection about aggression that led to this admission. He also presents with chorea-like movement s/s levodopa/carbidopa which seems to contribute to recent falls. He does not present with paranoid delusions. Discussed with HCP, Kalee increase of clozaril may help with underlying delusions and may decrease some of dyskenisia. Will coordinate care with his OP neurologist and OP psych provider. PLAN 09/20 continue tx. 09/21: see neuro note for assessment and recs. choreo-athetotic mvmts substantial. continue current mgmt for now. 09/22 continue tx. 09/23: continue current mgmt 09/24: no abnormal movements noted for a second day. continue current mgmt. 09/25: writhing movements of the trunk while seated in manuel chair. reporting dysuria; check UA. otherwise continue current mgmt. 09/26 continue tx. plan to d/c 09/29/2024 Reason for continued inpatient stay Substantial Risk for: inability to function Time Spent With Patient Time: Total time managing care of this patient today ____ minutes.
[2024-09-26] MEDS: PIMAVANSERIN 34 MG 34 EACH PO (08:57)
[2024-09-26 11:26] LABS: Glucose, Whole Blood 231 mg/dL (60-115)
[2024-09-26 16:02] LABS: Glucose, Whole Blood 207 mg/dL (60-115)
[2024-09-26 20:00] VITALS: BP 180/96; PULSE 87; RESP 16; TEMP 36; O2SAT 100
[2024-09-26 20:19] LABS: Glucose, Whole Blood 313 mg/dL (60-115)
[2024-09-26 20:47] VITALS: BP 180/96
[2024-09-27] MEDS: CARBIDOPA LEVODOPA 1 EACH PO ×4 (05:29→21:53)
[2024-09-27] MEDS: CARBIDOPA PO ×5 (05:30→21:52)
[2024-09-27] MEDS: LEVODOPA PO ×5 (05:30→21:52)
--- NOTE | 2024-09-27 06:45 | PC.NURSE ---
[facility] called @ [phone]/spoke with Bakari, asked to send us patient's Rytary, both doses, to us as soon as possible as we run low, which he agreed to deliver in the morning..
[2024-09-27 07:15] LABS: Glucose, Whole Blood 201 mg/dL (60-115)
[2024-09-27 08:10] VITALS: BP 152/87; PULSE 67; RESP 18; TEMP 36.4; O2SAT 96
[2024-09-27] MEDS: PIMAVANSERIN 34 MG 34 EACH PO (08:56)
[2024-09-27 11:29] LABS: Glucose, Whole Blood 235 mg/dL (60-115)
[2024-09-27 16:22] LABS: Glucose, Whole Blood 232 mg/dL (60-115)
--- NOTE | 2024-09-27 16:50 | HO.PSYCHPN ---
Subjective Subjective Date of Service: 09/27/24 Reason For Visit: Delusional D/O Unspec Anxiety D/O Etc Subjective Notes: Conditional Voluntary Healthcare Proxy: Yes Interim History: Pt sleeping through the night. He continues on a one to one due to fall risk. No overt psychosis or delusions. No SI/HI. No aggression. taking medications as prescribed, periods of napping during the day. Medication Compliance: Yes Review of Systems Review of Systems Denies any shortness of breath, chest pain, dizziness, lightheadedness, abdominal pain or discomfort, nausea vomiting or diarrhea Yes Unobtainable due to mental status Mental Status Exam Mental Status Exam Narrative: Appearance: fair hygiene, in NAD. chorea movements of the trunk. Behavior: cooperative Psychomotor: chorea Speech: mumbles, difficult to understand at times, minimally spontaneous TP: poverty of thought TC: none notable Mood: not assessed Affect: constricted SI: none expressed HI: none expressed VH/AH: no overt signs Delusions: no overt signs Insight/judgment: very impaired x 2. memory/cog: alert, not oriented to place, month nor situation. severe impairments in cognition/memory. Diagnostics Vital Signs (24Hr): Vital Signs - 24 hr 09/26/24 20:00 09/26/24 20:47 09/27/24 08:10 Temperature 96.8 F 97.6 F Pulse Rate 87 67 Respiratory Rate 16 18 Blood Pressure 180/96 H 180/96 H 152/87 H Pulse Oximetry 100 96 Oxygen Delivery Method Room Air Room Air BMI result Body Mass Index 20.6 Labs 09/21/24 09:44 Labs: Laboratory Results - last 48 hr 09/25/24 09/26/24 09/26/24 20:22 05:45 06:22 POC Glucose 244 H 183 H Urine Color Yellow Urine Appearance Cloudy Urine pH 5.5 Ur Specific Wilson 1.025 Urine Protein 30 (1+) H Urine Glucose (UA) 100 H Urine Ketones 15 Urine Blood Negative Urine Nitrite Negative Ur Leukocyte Esterase Large (3+) H Urine RBC 0-2 Urine WBC >50 H Ur Squamous Epith Cells 0-2 Urine Bacteria 3+ Hyaline Casts 0-2 09/26/24 09/26/24 09/26/24 11:19 15:57 20:14 POC Glucose 231 H 207 H 313 H Urine Color Urine Appearance Urine pH Ur Specific Wilson Urine Protein Urine Glucose (UA) Urine Ketones Urine Blood Urine Nitrite Ur Leukocyte Esterase Urine RBC Urine WBC Ur Squamous Epith Cells Urine Bacteria Hyaline Casts 09/27/24 09/27/24 09/27/24 06:43 11:25 16:16 POC Glucose 201 H 235 H 232 H Urine Color Urine Appearance Urine pH Ur Specific Wilson Urine Protein Urine Glucose (UA) Urine Ketones Urine Blood Urine Nitrite Ur Leukocyte Esterase Urine RBC Urine WBC Ur Squamous Epith Cells Urine Bacteria Hyaline Casts Medications Medications Current Medications Acetaminophen (Acetaminophen 325 Mg Tablet) 650 mg PO Q6H PRN PRN Reason: Headache/Pain, Scale 1-10 Last Admin: 09/17/24 21:55 Dose: 650 mg Al Hydroxide/Mg Hydroxide (Magnesium Hydrox/Alum Hydrox 30 Ml Oral.Susp) 30 ml PO Q6H PRN PRN Reason: Heartburn/Nausea Apixaban (Apixaban 5 Mg Tablet) 5 mg PO BID [facility] Last Admin: 09/27/24 08:55 Dose: 5 mg Atorvastatin Calcium (Atorvastatin Calcium 40 Mg Tablet) 40 mg PO BEDTIME [facility] Last Admin: 09/26/24 20:49 Dose: 40 mg Captopril (Captopril 12.5 Mg Tablet) 6.25 mg PO BEDTIME DRE; Protocol Last Admin: 09/26/24 20:47 Dose: 6.25 mg Cefuroxime Axetil (Cefuroxime Axetil 250 Mg Tablet) 250 mg PO BID [facility] Last Admin: 09/27/24 08:56 Dose: 250 mg Clozapine (Clozapine 25 Mg Tablet) 25 mg PO BEDTIME [facility] Last Admin: 09/26/24 20:49 Dose: 25 mg Clozapine (Clozapine 25 Mg Tablet) 25 mg PO DAILY [facility] Last Admin: 09/27/24 08:56 Dose: 25 mg Dextrose (Dextrose 50 % 25 Gm/50 Ml Syringe) 25 gm IVPUSH Q15M PRN; Protocol PRN Reason: per Hypoglycemia Standing Ord. Gabapentin (Gabapentin 400 Mg Capsule) 400 mg PO TID [facility] Last Admin: 09/27/24 14:25 Dose: 400 mg Glipizide (Glipizide 5 Mg Tablet) 5 mg PO DAILY [facility] Last Admin: 09/27/24 08:56 Dose: 5 mg Glucose (Glucose Gel 15 Gm Gel..Gram.) 15 gm PO Q15M PRN; Protocol PRN Reason: per Hypoglycemia Standing Ord. Insulin Human Lispro (Insulin Lispro 100 Unit/Ml 3 Ml Vial) 0 unit SUBCUT QIDACHS [facility]; Protocol Last Admin: 09/27/24 16:21 Dose: 4 unit Magnesium Hydroxide (Milk Of Magnesia 30 Ml Oral.Susp) 30 ml PO DAILY PRN PRN Reason: Constipation Multivitamins/Vitamin C (Multivitamin Tablet) 1 tab PO DAILY [facility] Last Admin: 09/27/24 08:56 Dose: 1 tab Pt Own (Carbidopa- Levodopa [Rytary] 23 .75-95 Mg Capsule, Extended Releas 1 cap PO QID@0530,1000,1430,2200 [facility] Last Admin: 09/27/24 14:28 Dose: 1 cap Pt Own (Carbidopa- Levodopa [Rytary] 61 .25-245 Mg Capsule, Extended Relea 2 cap PO QID@0530,1000,1430,1900 [facility] Last Admin: 09/27/24 14:29 Dose: 2 cap Pt Own (Pimavanserin [Nuplazid] 34 Mg Capsule) 34 mg PO DAILY [facility] Last Admin: 09/27/24 08:56 Dose: 34 mg Pt Own (Carbidopa- Levodopa [Rytary] 61 .25-245 Mg Capsule, Extended Relea 1 cap PO DAILY@2200 [facility] Last Admin: 09/26/24 21:57 Dose: 1 cap Oxybutynin Chloride (Oxybutynin Chloride 5 Mg Tablet) 5 mg PO DAILY [facility] Last Admin: 09/27/24 08:56 Dose: 5 mg Polyethylene Glycol (Polyethylene Glycol 3350 17 Gm Powd.Pack) 17 gm PO DAILY [facility] Last Admin: 09/27/24 08:57 Dose: 17 gm Senna (Sennosides 8.6 Mg Tablet) 8.6 mg PO BEDTIME [facility] Last Admin: 09/26/24 20:47 Dose: 8.6 mg Tolterodine Tartrate (Tolterodine Tartrate La 4 Mg Cap.Er.24h) 4 mg PO DAILY [facility] Last Admin: 09/27/24 08:55 Dose: 4 mg Trazodone HCl (Trazodone Hcl 50 Mg Tablet) 50 mg PO BEDTIME MRX1 PRN PRN Reason: Insomnia Last Admin: 09/21/24 20:38 Dose: 50 mg Allergies Allergies Allergy/AdvReac Type Severity Reaction Status Date / Time morphine Allergy Unknown Verified 04/15/24 13:13 Assessment & Plan Assessment & Plan (1) Dementia due to Parkinson's disease with behavioral disturbance: Status: Acute Code(s): G20.A1 - Parkinson's disease without dyskinesia, without mention of fluctuations; F02.818 - Dementia in other diseases classified elsewhere, unspecified severity, with other behavioral disturbance (2) Orthostatic hypotension dysautonomic syndrome: Status: Acute Code(s): I95.1 - Orthostatic hypotension Assessment and Plan: Schizophrenia/Mood disorder Plan per psychiatric team Parkinson's disease with dyskinesia/autonomic orthostatic hypotension, history of dystonia Continue home meds for Parkinson's disease Abdominal binder and RAYMOND stockings while awake Low-dose of captopril at HS Continue to monitor blood pressures Follow labs AFib Not on rate control, discussion needs to occur with primary care regarding discontinuing his anticoagulants due to frequent falls HTN/HLD Follow blood pressures and adjust medications judiciously Restart Home Crestor CKD stage 3 Follow labs- Last RF in March WNL BUN/CREAT stable 09/21/2024 Type 2 DM Continue Glimiperide, Insulin SS. Blood sugars acceptable range. Last A1c 7.4% Recent [facility] [place] admit (3) Parkinson's disease with dyskinesia: Qualifiers: Fluctuating manifestations: with fluctuating manifestations Qualified Code(s): G20.B2 - Parkinson's disease with dyskinesia, with fluctuations Status: Acute Code(s): G20.B1 - Parkinson's disease with dyskinesia, without mention of fluctuations Assessment and Plan: With long history of Parkinson's disease and requirement for relatively high doses of dopaminergic medications and with history of dyskinesia from the medications, he also has behavioral symptomatology. As far as dyskinesia is concerned, it is mild unlikely due to medication and may not have to be treated. Patient's usually prefer hyper dopaminergic state than hypo. His brain scan has revealed significant frontotemporal degeneration, which typically can impact patient's mood, personality, cognition, ability to make decisions, and even balance and walking. Etiologies likely genetic based with no specific treatment other than symptom management. If possible, FDG brain PET scan can put more light into the diagnosis of frontal lobe dementia syndrome. Plan Mr. Stapleton is a 73 year-old male with hx of Parkinson's with dyskenisia who was sent to [facility] due to combative behaviors and paranoid delusions. It appears pt has been having more frequent falls. [facility]. He became combative when redirected to stay in wheelchair. On the unit, pt presents with severe cognitive/memory impairments and not able to provide much information as to why he is here. He thinks he is at home. He has no recollection about aggression that led to this admission. He also presents with chorea-like movement s/s levodopa/carbidopa which seems to contribute to recent falls. He does not present with paranoid delusions. Discussed with HCP, Kalee increase of clozaril may help with underlying delusions and may decrease some of dyskenisia. Will coordinate care with his OP neurologist and OP psych provider. PLAN 09/20 continue tx. 09/21: see neuro note for assessment and recs. choreo-athetotic mvmts substantial. continue current mgmt for now. 09/22 continue tx. 09/23: continue current mgmt 09/24: no abnormal movements noted for a second day. continue current mgmt. 09/25: writhing movements of the trunk while seated in manuel chair. reporting dysuria; check UA. otherwise continue current mgmt. 09/26 continue tx. plan to d/c 09/29/202409/27 continue tx. Reason for continued inpatient stay Substantial Risk for: inability to function Time Spent With Patient Time: Total time managing care of this patient today ____ minutes.
[2024-09-27 20:00] VITALS: BP 140/92; PULSE 77; RESP 18; TEMP 36.1; O2SAT 97
[2024-09-27 21:12] LABS: Glucose, Whole Blood 199 mg/dL (60-115)
[2024-09-27] MEDS: Milk of Magnesia 30 ML ORAL.SUSP PO (23:32)
--- NOTE | 2024-09-28 02:26 | PC.NURSE ---
Pt reported increased anxiety, restlessness, Provider master sonar technician, [place] ([email or web address]) notified, one time order PRN Ativan 1mg placed and administered with some effect.
[2024-09-28] MEDS: CARBIDOPA LEVODOPA 1 EACH PO ×2 (05:21→09:56)
[2024-09-28] MEDS: CARBIDOPA PO ×2 (05:28→09:57)
[2024-09-28] MEDS: LEVODOPA PO ×2 (05:28→09:57)
[2024-09-28 07:08] LABS: Glucose, Whole Blood 219 mg/dL (60-115)
[2024-09-28 07:55] VITALS: BP 155/69; PULSE 87; RESP 18; TEMP 36.8; O2SAT 98
[2024-09-28] MEDS: PIMAVANSERIN 34 MG 34 EACH PO (08:09)
--- NOTE | 2024-09-28 10:15 | PM.PSYDC ---
DS: Providers Provider Date of Service: 09/28/24 Date of admission: 09/16/24 13:13 Date of discharge: 09/28/24 Primary care physician: Unknown Physician Consults: 09/16/24 18:11 Consult to Hospitalist Routine Comment: Consulting Provider: [facility] Reason For Exam: medical H&P 09/18/24 14:50 Consult to Neurology Routine Consulting Provider: [facility] Reason for consultation: parkinson's dyskenisia causing falls Has provider been notified: Yes 09/20/24 23:39 Consult to Hospitalist Routine Comment: Consulting Provider: [facility] Reason For Exam: Elevated BP. Fructuated. Discharging clinician: Dari Waldrop DS: Diagnosis Discharge Diagnosis (1) Dementia due to Parkinson's disease with behavioral disturbance: Status: Acute (2) Orthostatic hypotension dysautonomic syndrome: Status: Acute (3) Parkinson's disease with dyskinesia: Status: Acute DS: Medications Discharge Medications Home Medications: Home Medications ?Medication ?Instructions ?Recorded ?Confirmed gabapentin 400 mg capsule 1 cap PO TID 10/12/20 09/16/24 (Neurontin) multivitamin 1 tab PO QAM 10/12/20 09/16/24 sennosides 8.6 mg tablet (senna) 17.2 mg PO DAILY PRN Constipation 10/12/20 09/17/24 rosuvastatin 10 mg tablet 10 mg PO BEDTIME 07/04/21 09/17/24 magnesium oxide 400 mg (241.3 mg 200 mg PO DAILY 04/02/22 09/17/24 magnesium) tablet acetaminophen 325 mg capsule 650 mg PO Q6H PRN Pain 07/11/22 09/17/24 (Tylenol) glimepiride 2 mg tablet 2 mg PO DAILY 05/26/23 09/16/24 Miralax 17 g PO DAILY 09/16/24 09/16/24 carbidopa ER 23.75 mg-levodopa 95 See Rx Instructions .Route .COMPLEX 09/16/24 09/16/24 mg capsule,extended release (Rytary) magnesium oxide 200 mg PO DAILY 09/16/24 09/16/24 oxybutynin chloride 5 tab PO DAILY 09/16/24 09/16/24 pimavanserin 34 mg PO 09/16/24 09/16/24 senna 8.6 tab PO BEDTIME 09/16/24 09/16/24 tolterodine 4 mg PO DAILY 09/16/24 09/16/24 Previous Rx's ?Medication ?Instructions ?Recorded pimavanserin 34 mg capsule 34 mg PO DAILY 30 days #30 caps 03/07/24 (Nuplazid) carbidopa ER 61.25 mg-levodopa 245 See Rx Instructions PO .COMPLEX 30 04/15/24 mg capsule,extended release days #270 caps (Rytary) apixaban 5 mg tablet (Eliquis) 5 mg PO BID #60 tabs 09/27/24 captopril 12.5 mg tablet 6.25 mg PO BEDTIME #15 tabs 09/27/24 cefuroxime axetil 250 mg tablet 250 mg PO BID #5 tabs 09/27/24 clozapine 25 mg tablet 25 mg PO BID #60 tabs 09/27/24 trazodone 50 mg tablet 50 mg PO BEDTIME PRN Insomnia #30 09/27/24 tabs Mental Status Exam Mental Status Exam Narrative: Appearance: fair hygiene, in NAD. chorea movements of the trunk. Behavior: cooperative Psychomotor: chorea Speech: mumbles, difficult to understand at times, minimally spontaneous TP: poverty of thought TC: none notable Mood: not assessed Affect: constricted SI: none expressed HI: none expressed VH/AH: no overt signs Delusions: no overt signs Insight/judgment: very impaired x 2. memory/cog: alert, not oriented to place, month nor situation. severe impairments in cognition/memory. Data Data Completed and Pending Completed studies during hospitalization [Text1]: 09/21/24 09/21/24 09/21/24 09:44 11:25 16:23 Absolute Neuts (auto) Sodium 137 Potassium 3.7 Chloride 105 Carbon Dioxide 26 Anion Gap 10 L BUN 16 Creatinine 0.82 Estim Creat Clear Calc 78.3 Estimated GFR > 60 POC Glucose 195 H 185 H Random Glucose 269 H Calcium 8.4 Urine Color Urine Appearance Urine pH Ur Specific Wishon Urine Protein Urine Glucose (UA) Urine Ketones Urine Blood Urine Nitrite Ur Leukocyte Esterase Urine RBC Urine WBC Ur Squamous Epith Cells Urine Bacteria Hyaline Casts 09/21/24 09/22/24 09/22/24 20:26 06:48 10:57 Absolute Neuts (auto) Sodium Potassium Chloride Carbon Dioxide Anion Gap BUN Creatinine Estim Creat Clear Calc Estimated GFR POC Glucose 228 H 174 H 148 H Random Glucose Calcium Urine Color Urine Appearance Urine pH Ur Specific Wishon Urine Protein Urine Glucose (UA) Urine Ketones Urine Blood Urine Nitrite Ur Leukocyte Esterase Urine RBC Urine WBC Ur Squamous Epith Cells Urine Bacteria Hyaline Casts 09/22/24 09/22/24 09/23/24 16:13 19:57 06:05 Absolute Neuts (auto) Sodium Potassium Chloride Carbon Dioxide Anion Gap BUN Creatinine Estim Creat Clear Calc Estimated GFR POC Glucose 339 H 288 H 183 H Random Glucose Calcium Urine Color Urine Appearance Urine pH Ur Specific [place]on Urine Protein Urine Glucose (UA) Urine Ketones Urine Blood Urine Nitrite Ur Leukocyte Esterase Urine RBC Urine WBC Ur Squamous Epith Cells Urine Bacteria Hyaline Casts 09/23/24 09/23/24 09/23/24 11:20 16:18 20:37 Absolute Neuts (auto) Sodium Potassium Chloride Carbon Dioxide Anion Gap BUN Creatinine Estim Creat Clear Calc Estimated GFR POC Glucose 275 H 138 H 231 H Random Glucose Calcium Urine Color Urine Appearance Urine pH Ur Specific Wishon Urine Protein Urine Glucose (UA) Urine Ketones Urine Blood Urine Nitrite Ur Leukocyte Esterase Urine RBC Urine WBC Ur Squamous Epith Cells Urine Bacteria Hyaline Casts 09/24/24 09/24/24 09/24/24 06:30 07:36 11:27 Absolute Neuts (auto) 10.0 H Sodium Potassium Chloride Carbon Dioxide Anion Gap BUN Creatinine Estim Creat Clear Calc Estimated GFR POC Glucose 217 H 205 H Random Glucose Calcium Urine Color Urine Appearance Urine pH Ur Specific Wishon Urine Protein Urine Glucose (UA) Urine Ketones Urine Blood Urine Nitrite Ur Leukocyte Esterase Urine RBC Urine WBC Ur Squamous Epith Cells Urine Bacteria Hyaline Casts 09/24/24 09/24/24 09/25/24 16:12 20:04 06:33 Absolute Neuts (auto) Sodium Potassium Chloride Carbon Dioxide Anion Gap BUN Creatinine Estim Creat Clear Calc Estimated GFR POC Glucose 196 H 219 H 192 H Random Glucose Calcium Urine Color Urine Appearance Urine pH Ur Specific Wishon Urine Protein Urine Glucose (UA) Urine Ketones Urine Blood Urine Nitrite Ur Leukocyte Esterase Urine RBC Urine WBC Ur Squamous Epith Cells Urine Bacteria Hyaline Casts 09/25/24 09/25/24 09/25/24 11:55 16:18 20:22 Absolute Neuts (auto) Sodium Potassium Chloride Carbon Dioxide Anion Gap BUN Creatinine Estim Creat Clear Calc Estimated GFR POC Glucose 208 H 195 H 244 H Random Glucose Calcium Urine Color Urine Appearance Urine pH Ur Specific Wishon Urine Protein Urine Glucose (UA) Urine Ketones Urine Blood Urine Nitrite Ur Leukocyte Esterase Urine RBC Urine WBC Ur Squamous Epith Cells Urine Bacteria Hyaline Casts 09/26/24 09/26/24 09/26/24 05:45 06:22 11:19 Absolute Neuts (auto) Sodium Potassium Chloride Carbon Dioxide Anion Gap BUN Creatinine Estim Creat Clear Calc Estimated GFR POC Glucose 183 H 231 H Random Glucose Calcium Urine Color Yellow Urine Appearance Cloudy Urine pH 5.5 Ur Specific Wishon 1.025 Urine Protein 30 (1+) H Urine Glucose (UA) 100 H Urine Ketones 15 Urine Blood Negative Urine Nitrite Negative Ur Leukocyte Esterase Large (3+) H Urine RBC 0-2 Urine WBC >50 H Ur Squamous Epith Cells 0-2 Urine Bacteria 3+ Hyaline Casts 0-2 09/26/24 09/26/24 09/27/24 15:57 20:14 06:43 Absolute Neuts (auto) Sodium Potassium Chloride Carbon Dioxide Anion Gap BUN Creatinine Estim Creat Clear Calc Estimated GFR POC Glucose 207 H 313 H 201 H Random Glucose Calcium Urine Color Urine Appearance Urine pH Ur Specific Wishon Urine Protein Urine Glucose (UA) Urine Ketones Urine Blood Urine Nitrite Ur Leukocyte Esterase Urine RBC Urine WBC Ur Squamous Epith Cells Urine Bacteria Hyaline Casts 09/27/24 09/27/24 09/27/24 11:25 16:16 21:08 Absolute Neuts (auto) Sodium Potassium Chloride Carbon Dioxide Anion Gap BUN Creatinine Estim Creat Clear Calc Estimated GFR POC Glucose 235 H 232 H 199 H Random Glucose Calcium Urine Color Urine Appearance Urine pH Ur Specific Wishon Urine Protein Urine Glucose (UA) Urine Ketones Urine Blood Urine Nitrite Ur Leukocyte Esterase Urine RBC Urine WBC Ur Squamous Epith Cells Urine Bacteria Hyaline Casts 09/28/24 07:02 Absolute Neuts (auto) Sodium Potassium Chloride Carbon Dioxide Anion Gap BUN Creatinine Estim Creat Clear Calc Estimated GFR POC Glucose 219 H Random Glucose Calcium Urine Color Urine Appearance Urine pH Ur Specific Wishon Urine Protein Urine Glucose (UA) Urine Ketones Urine Blood Urine Nitrite Ur Leukocyte Esterase Urine RBC Urine WBC Ur Squamous Epith Cells Urine Bacteria Hyaline Casts 09/26/24 05:45 Urine clean catch - Clean Catch Midstream Urine Culture - Final DS: Summary Hospital Course Hospital Course: Mr. Stapleton is a 73 year-old male with hx of Parkinson's and Parkinson's dementia. He was brought to [facility] due to increase combative behaviors and paranoid delusions. Pt resides at for past 6 years. On the unit, pt presents as calm. He is noted to have chorea like movement- dyskenisia most likely secondary to levodopa/carbidopa side effect. He is not oriented to place (tells this junior technical writer he is at home), nor month nor year. He is not able to provide any meaningful information as to what brought him here or otherwise. He does not present with s/s of paranoid delusions in that he denies any fear of someone trying to harm him or feeling unsafe here. Collateral information from Garry (senior licensing manager at the ) who reports in the past 3-4 months pt has had increase falls, this seems to coincide when he started to show dyskenisia. Garry reports he was recently admitted at [facility] due to frequent falls and came back day or so prior to being sent back to the hospital for combative behaviors. Garry reports when he came back of the hospital he was deemed to be a one to one and in a wheelchair. When pt attempted to get up and staff redirected him was when pt became aggressive. Garry reports he has not been aggressive in the past. It does appear current impairments in orientation have been going on for a year or so. This junior technical writer also spoke with pt's , Kalee and son Mark who reports pt has been having multiple falls and this is their main concern. Neither nor son have seen pt in very long time so they can't comment as to changes in gait instability or onset of dyskenisia. Past Psychiatric History: Inpt: none prior OP: [facility] Neurologist: Dr. Tayler Joshua [facility] On the unit, pt was admitted on a CV signed by HCP. He presented with advanced dementia affecting his orientation (not oriented to place, month, year nor situation), language, ability to retain new information. He did not present with s/s of delirium. He did not show overt signs of paranoia nor psychosis. He also did not present with combative or aggressive behaviors. Pt noted to be unsteady when ambulating mostly due to dyskinesias as side effects of levodopa/carbidopa. He was seen by neurology, Priyank Stone who did not recommend at this time changes to this medication. Orthostatic VS were checked and he did not show significant drops in BP. His SBP was consistently elevated between 170-190. He was seen by hospitalist who added a low dose of captopril 12.5mg po qhs. He was on a one to one due to fall risk. In terms of psychosis or delusions, staff from had reported that he at times reports seeing people who are not there. He also has made comments suggestive of paranoia. We increase clozaril dose to 25mg po BID, also to help with dyskinesia. He tolerated the medication well without side effects including constipation, ortho hotn, nor over sedation. technician terminal and repeater may want to consider keeping only clozapine and discontinuing nuplacid. We had meeting with DDS group and his HCP, Kalee and his son. HCP updated [facility] and he is now DNR/DNI. We discussed the fact that his dementia is advanced. Status at Discharge Cognitive/behavioral status at discharge: alert, no overt psychosis or delusions. No combative behaviors. No SI/HI. Sleeping and eating well. calm and pleasant. advanced dementia, not oriented to place, month, year nor situation. Functional status at discharge: wheelchair bound (periods of being able to ambulate with assistance if dyskinesia not severe) Time Spent with Patient Time attestation: Total time managing care of this patient today ___45_ minutes. Discharge Plan Discharge Anticipated Discharge Date/Time: 09/28/24 10:10 Patient Disposition: Home, Self-Care Discharge Diagnosis: PD dementia with behavioral disturbances including psychosis/delusions Referrals: Dr Sosa [facility] [Other, Primary Care] - 3-5 Days Referral Note: Request was made for follow up appointment with PCP. Office reported they will call Garry at [facility] with appointment date and time no later 09/29/24. [facility] [Other, Psychiatry] - 11/01/24 11:30 am Referral Note: Your next appoinment with Ronen Norton is in person for 30 minutes on 11/01/24 at 11:30am. [facility] living environment [Other] - 09/28/24 11:00 am Referral Note: Transfer back to [address] [place] [address] on 09/28/24 at 1100. Follow up with service team at [facility], [facility] and [facility] as needed. Discharge Medications: New cefuroxime axetil 250 mg Tablet 250 mg PO BID Qty: 5 0RF Eliquis 5 mg Tablet 5 mg PO BID Qty: 60 0RF captopril 12.5 mg Tablet 6.25 mg PO BEDTIME Qty: 15 0RF Protocol: Hold for SBP< HOLD for SBP < : 120 clozapine 25 mg Tablet 25 mg PO BID Qty: 60 0RF trazodone 50 mg Tablet 50 mg PO BEDTIME PRN (Reason: Insomnia) Qty: 30 0RF Continued Nuplazid 34 mg capsule 34 mg PO DAILY 30 Days Qty: 30 6RF Rytary 61.25-245 mg capsule, extended release See Rx Instructions PO .COMPLEX 30 Days Qty: 270 6RF Rx Instructions: Order increased to: Rytary 61. 25-245mg- 2 caps QID at 5:30am, 10am, 2:30pm, 7pm, and 1 cap daily at 10pm. multivitamin Tablet 1 tab PO QAM gabapentin [Neurontin] 400 mg capsule 1 cap PO TID sennosides [senna] 8.6 mg Tablet 17.2 mg PO DAILY PRN (Reason: Constipation) magnesium oxide 400 mg (241.3 mg magnesium) tablet 200 mg PO DAILY Miralax 17 g PO DAILY magnesium oxide capsule 200 mg PO DAILY oxybutynin chloride 5 tab PO DAILY pimavanserin tablet 34 mg PO senna tablet 8.6 tab PO BEDTIME tolterodine tablet 4 mg PO DAILY Rytary 23.75-95 mg capsule, extended release See Rx Instructions .ROUTE .COMPLEX Rx Instructions: orally acetaminophen [Tylenol] 325 mg capsule 650 mg PO Q6H PRN (Reason: Pain) rosuvastatin 10 mg tablet 10 mg PO BEDTIME glimepiride 2 mg tablet 2 mg PO DAILY Discontinued benzonatate 100 mg Capsule 100 mg PO TID PRN (Reason: Cough) clozapine 25 mg tablet 25 mg PO BEDTIME Eliquis 5 mg tablet 5 mg PO BID metoprolol succinate 25 mg tablet extended release 24 hr 25 mg PO DAILY lisinopril 5 mg tablet 2.5 mg PO DAILY Discharge Orders: Discharge Order (Routine); Ordered 09/28/24 Ordered By: Dari Waldrop Diet: Diabetic diet Activity on Discharge: periods of needing a wheelchair Stand Alone Forms: Patient Portal Discharge page Print Language: Greenlandic Care Plan Goals: 1. maintain mood 2. no aggression towards self or others. Health Concerns: follow up with neurologist to address dyskinesia, PCP to monitor BP instability Plan of Treatment: 1. take medications as prescribed. 2. Go to nearest ED or call 911 in event of emergency Assessment: Pt with brighter affect. No overt psychosis or delusional content. Dementia is advanced and at this point he is not oriented to place, month, year nor situation. Sleeping and eating well. ambulating with assistance and at times needs wheelchair.
== END 2024-09-28 11:18 | disposition home or self-care (01) | DRG 57 ==
PROVIDERS: Internal Medicine; Nurse Practitioner Family; Psychiatry & Neurology Psychiatry; Social Worker; Admitting Provider Psychiatry & Neurology Psychiatry; Visit Provider Psychiatry & Neurology Psychiatry
DX: G20.B1 Parkinson's disease with dyskinesia, without mention of fluctuations (principal); F02.82 Dementia in other diseases classified elsewhere, unspecified severity, with psychotic disturbance; I13.0 Hypertensive heart and chronic kidney disease with heart failure and stage 1 through stage 4 chronic kidney disease, or unspecified chronic kidney disease; I50.32 Chronic diastolic (congestive) heart failure; F39 Unspecified mood [affective] disorder; N18.30 Chronic kidney disease, stage 3 unspecified; I95.1 Orthostatic hypotension; R29.6 Repeated falls; E78.5 Hyperlipidemia, unspecified; E11.22 Type 2 diabetes mellitus with diabetic chronic kidney disease; Z91.81 History of falling; N32.81 Overactive bladder; Z79.84 Long term (current) use of oral hypoglycemic drugs; Z79.899 Other long term (current) drug therapy
CPT/HCPCS: 36415; 76705; 80048; 80053; 80061; 81001; 81003; 82306; 82607; 82746; 82947; 83036; 83735; 84443; 85048; 87086; 93005

== ENCOUNTER → 2024-09-16 13:13 | Outpatient (BNV) | payer MEDICARE, MEDICAID, SELFPAY | PROVIDERS: Admitting Provider Psychiatry & Neurology Psychiatry; Visit Provider Social Worker | DX: G20.B1 Parkinson's disease with dyskinesia, without mention of fluctuations (principal); F02.818 Dementia in other diseases classified elsewhere, unspecified severity, with other behavioral disturbance | CPT/HCPCS: 90792; 99232; 99499 ==

== ENCOUNTER → 2024-09-16 13:13 | Outpatient (BNV) | payer MEDICARE, MEDICAID, SELFPAY | PROVIDERS: Admitting Provider Psychiatry & Neurology Psychiatry; Visit Provider Internal Medicine | DX: F39 Unspecified mood [affective] disorder (principal); G20.B1 Parkinson's disease with dyskinesia, without mention of fluctuations; I10 Essential (primary) hypertension | CPT/HCPCS: 99222 ==

== ENCOUNTER → 2024-09-16 13:13 | Outpatient (BNV) | payer MEDICARE, MEDICAID, SELFPAY | PROVIDERS: Admitting Provider Psychiatry & Neurology Psychiatry; Visit Provider Psychiatry & Neurology Neurology | DX: G20.B2 Parkinson's disease with dyskinesia, with fluctuations (principal); F02.818 Dementia in other diseases classified elsewhere, unspecified severity, with other behavioral disturbance; G31.09 Other frontotemporal neurocognitive disorder | CPT/HCPCS: 99222 ==

== ENCOUNTER 2024-10-25 11:28 | Outpatient (AMB) | payer MEDICARE, MEDICAID, SELFPAY ==
--- NOTE | 2024-10-25 11:29 | A.OFFVIS_ITS ---
Vital Signs 10/25/24 11:32 BP 110/60 Blood Pressure Location Rt brachial Position Sitting Pulse 58 Pulse Source Pulse Oximeter Pulse Oximetry (%) 95 Oxygen Delivery Method Room Air Intake Visit Reasons: follow up w/ Cloud Engagement Partner Required: No Accompanied by: DIE ASSEMBLER Allergies morphine Allergy (Verified 10/25/24 11:41) Unknown HPI Comments Details: 74-yr-old male presents for f/u visit for Parkinson's disease, accompanied by his custodial staff member.he was recently admitted for psychiatric unit - for paranoid behavior and agitation . Pt denies any specific concerns. Patient is curious if there is anything new for treatment Parkinson's. Patient states that his Rytary kicks in quicker if he sits on both hands for 10 minutes to block supply flow to his pinky fingers. Pt's current PD medication regimen: Rytary 61.25-245mg- 2 caps QID at 5:30am, 10am, 2:30pm, 7pm, and 1 cap daily at 10pm Rytary 23.75-95 mg- 1 cap QID at 5:30am, 10am, 2:30pm, 10pm. Nuplazid 34mg qd. ADL's: Needing some help Swallowing: No issues Drooling: Denies Orthostatic lightheadedness: Not recently, but has been lightheaded when he first gets up in the am- around 7am. Feels he does better when he wakes up at 6am and takes water an days back down x's an hour. Goes to bed around 7-8pm. Patient has follow-up with [facility] nephrology next month. He was last seen by [facility] in 05/12/2023. Constipation: Denies Urinary symptoms: Patient denies any current urinary issues or nocturnal incontinence. Several months ago, he was taking oxybutynin for OAB s/s, and more recently PCP ordered Myrbetriq but it was denied by insurance. Freezing: Occasionally at times- not bothersome Stiffness: Denies Dyskinesia: moderate to severe Tremor: None Falls: Several - pt reports last fall was 2-3 months ago- can get dizzy in the am and just blacked out. Hallucinations: Denies. Memory: Patient denies any issues, but also notes his cognition is not as strong as before. He is interested in having follow-up neuropsych eval- last Advil was in 2019. He also wonders about heroin, states it is sold on the streets and thought he heard it could give people a boost. Mood: Stable now Sleep: Sleeping ok PFSH Medical History DVT (deep venous thrombosis) Diabetes Parkinsons Surgical History No pertinent past surgical history Social History Household Members: Other Housing: Other Do you presently have visiting nurse or other home services: No Alcohol intake: never Comment: 1:1 Patient Tobacco Use Status: Never used Tobacco service: No Sexual orientation: Straight/Heterosexual Physical Exam Const General: cooperative and no acute distress Resp Effort & Inspection: normal respiratory effort and able to speak in complete sentences Neuro Other: General: A&O. Expression: Decreased Voice: soft Tremor: None Tone: BUE tone Dyskinesia: severe dyskinesias FFM: BUE Bradykinesia Foot taps: BLE bradykinesia Gait: not evaluated Psych: Pleasant affect Assessment & Plan Assessment & Plan (1) Parkinson's disease with dyskinesia: Code(s): G20.B1 - Parkinson's disease with dyskinesia, without mention of fluctuations Category: Medical Qualifiers: Fluctuating manifestations: with fluctuating manifestations Qualified Code(s): G20.B2 - Parkinson's disease with dyskinesia, with fluctuations (2) Orthostatic hypotension dysautonomic syndrome: Code(s): I95.1 - Orthostatic hypotension Category: Medical (3) Mood disorder: Comment: w/ h/o delusions and hallucinations Code(s): F39 - Unspecified mood [affective] disorder Category: Medical (4) MCI (mild cognitive impairment): Code(s): G31.84 - Mild cognitive impairment of uncertain or unknown etiology Category: Medical Plan Discussed about Edmund - he will be a good candidtae for 24 hr dopamine infusion * Rytary 61. 25-245mg- 2 caps QID at 5:30am, 10am, 2:30pm, 7pm, and 1 cap daily at 10pm * D/c Rytary 23. 75-95 mg- 1 cap QID at 5:30am, 10am, 2:30pm, 10pm. * Nuplazid 34mg qd f/u in 3-6 months or sooner prn. Coding Level of Care Code Est Pt Level 4 (44584) Complex EM visit Add On G2211 Diagnoses Parkinson's disease with dyskinesia and fluctuating manifestations G20.B2 Fluctuating manifestations: with fluctuating manifestations Orthostatic hypotension dysautonomic syndrome I95.1 Mood disorder F39 MCI (mild cognitive impairment) G31.84
[2024-10-25 11:32] VITALS: BP 110/60; PULSE 58; O2SAT 95
--- OUTSIDE RECORDS SUMMARY | 2024-10-25 12:17 | XMS_ITS | Encounter Summary ---
Author Organization [facility] Address [address] [place] [address] Phone Care Team Providers Care Employment Interviewer Name Role Phone Sundeep Sosa MD Unavailable [phone] Sundeep Sosa MD Primary Care Provide r Adria Harvinder Jaun DO Unavailable Encounter Details Date Type Department Care Team (Late st Contact Info) Description 08/23/2023 Procedure Pass [facility], [facility] Scan - [facility] [address] [place] [address] Social History Tobacco Use Types Packs/Day Years [...] on file 07/17/2022 No 07/17/2022 No 07/17/2022 Digital Access Answer Date Recorded No 08/18/2022 No 08/18/2022 Reliable internet access at home? Not on file 08/18/2022 Device with a working camera? Not on file Sex and Gender Information Value Date Recorded Sex Assigned at Male 06/02/2018 5:44 PM EDT Legal Sex Male 7:23 PM EST Gender Identity Male 06/02/2018 5:44 PM EDT Sexual Orientation Straight 06/02/2018 5: 44 PM EDT documented as of this encounter Functional Status * Calculated C-SSRS Risk Score (Lifetime/Recent) Answer Date of Assessment Author No Risk Indicated 08/23/2023 11:18 AM Lei Godwin RN * [place] Suicide Severity Rating Scale (Screener/Recent Self-Report) Question Answer Date of Assessment Author 1. Wish to be (Past 1 Month) No 024 11:18 AM Lei Godwin RN 2. Non-Specific Active Suici darnell Thoughts (Past 1 Month) No 08/23/2023 11:18 AM Lei Godwin RN 6. Suicidal Behavior (Lifetime) No 11:18 AM Lei Godwin, THAIS documented as of this encounter Plan of Treatment Upcoming Encounters Date Type Department Care Team (Late st Contact Info) Description 11/01/2024 3:15 PM EDT Office Visit [facility] [address] [place] [address] Harvinder Covington, [address] [place] [address] [email or web address] documented as of this encounter Visit Diagnoses Not on filedocumented in this encounter Additional Health Concerns Infection Onset Date Last Indicated Resolved Time CoV-Risk 08/23/2023 08/23/2023 09/03/2023 1:21 AM EDT CoV-Risk 05/06/2024 05/06/2024 05/17/2024 1:22 AM EST documented as of this encounter Care Teams Employment Interviewer Relationship Specialty Start Date End Date Sundeep Sosa MD [address] [address] PCP - General Family Medicine 12/08/19 Sundeep Sosa MD [address] [address] Family Medicine 11/25/19 Harvinder Covington DO [address] [place] [id number] [email or web address] Ger[facility] Medicine 05/27/24 documented as of this encounter Additional Source Comments The information contained in this document represents components of the legal health record. It is not the complete legal health record.[facility]
== END 2024-10-25 12:21 | disposition home or self-care (01) ==
LOC: HO.HSMS 11:29
PROVIDERS: PCP Family Medicine; Visit Provider Psychiatry & Neurology Neurology
DX: G20.B2 Parkinson's disease with dyskinesia, with fluctuations (principal); I95.1 Orthostatic hypotension; F39 Unspecified mood [affective] disorder; G31.84 Mild cognitive impairment of uncertain or unknown etiology
CPT/HCPCS: 99214; G2211

== ENCOUNTER → 2024-10-25 11:28 | Outpatient (BNVA) | payer MEDICARE, MEDICAID, SELFPAY | PROVIDERS: PCP Family Medicine; Visit Provider Psychiatry & Neurology Neurology | DX: G20.B2 Parkinson's disease with dyskinesia, with fluctuations (principal); G31.84 Mild cognitive impairment of uncertain or unknown etiology; I95.1 Orthostatic hypotension; F39 Unspecified mood [affective] disorder | CPT/HCPCS: 99212 ==

== ENCOUNTER 2024-11-14 14:42 | Outpatient (AMB) | payer MEDICARE, MEDICAID, SELFPAY ==
--- OUTSIDE RECORDS SUMMARY | 2023-02-19 14:10 | XMS_ITS | Encounter Summary ---
Author Organization [facility] Address [address] [facility] [address] [place] [address] Phone Care Team Providers Care Sebd Teacher Name Role Phone Sundeep Sosa MD Unavailable Sundeep Sosa MD Primary Care Provide r Encounter Details Date Type Department Care Team (Late st Contact Info) Description 02/19/2023 1:10 PM EST Hospital Encounter [facility] [address] [place] [id number] Rosa James, BRUSH POL[employer]ER [address] [place] [address] [email or web address] Social History Tobacco Use Types Packs/Day Years Used Date Smoking Tobacco: Never Smokeless Tobacco: Never Alcohol Use Standard Drinks/Week Comments Yes 0 (1 standard drink = 0.6 oz pur e alcohol) rare Home Health Assessment: Transportation Answer Date Recorded Lack of Transportation (Medical) No 09/10/2022 Lack of Transportation (Non-Medical) No 09/10/2022 Patient Unable or Declines to Respond No 09/10/2022 Education Answer Date Recorded Are you interested in more education? Not on jose e 07/17/2022 Are you concerned about learning? Not on file 07/17/2022 No 07/17/2022 No 07/17/2022 Food Answer Date Recorded Within the past 6 months we worried whether our food would run out before we got money to buy more. Never True 09/15/2024 Within the past 6 months the food we bought just didn't last and we didn't have enough money to get more. Never True Residential Stability Answer Date Recor ded What is your housing situation today? I have dave sing 09/15/2024 How many times have you move d in the past 12 months? Zero (I did not move) 09/15/2024 Paying for Meds Answer Date Recorded Do you have trouble paying for medicines? No 09/15/2024 Paying Utility Bills Answer Date Record ed Do you have trouble paying your heating or elect ricity bill? No 09/15/2024 Transportation Answer Date Recorded Has the lack of transportati on kept you from medical appointments or from getting medications? No 09/15/2024 Digital Access Answer Date Recorded No 09/15/2024 Yes 09/15/2024 Do you have reliable internet access at home? Ye s 09/15/2024 Do you have a device (e.g., phone, tablet, computer) with a working camera? Yes 09/15/2024 Intimate Partner Violence Answer Date R ecorded Are you denied basic needs s uch as food, clothing, or medical care? No 09/15/2024 In the past 12 months have y ou been in a relationship with a person who hurts, threatens, or tries to control you? No 09/15/2024 Are you denied basic needs s uch as food, clothing, or medical care? No 09/15/2024 In the past 12 months have y ou been in a relationship with a person who hurts, threatens, or tries to control you? No 09/15/2024 Sex and Gender Information Value Date Recorded Sex Assigned at Male 06/02/2018 5:44 PM EDT Legal Sex Male 7:23 PM EST Gender Identity Male 06/02/2018 5:44 PM EDT Sexual Orientation Straight 06/02/2018 5: 44 PM EDT documented as of this encounter Functional Status * Calculated C-SSRS Risk Score (Lifetime/Recent) Answer Date of Assessment Author No Risk Indicated 09/15/2024 3:30 AM EDT Abby Kwon RN * [place] Suicide Severity Rating Scale (Screener/Recent Self-Report) Question Answer Date of Assessment Author 1. Wish to be (Past 1 Month) No 09/15/2024 3:30 AM EDT Abby Ulrich RN 2. Non-Specific Active Suicidal Thoughts (Past 1 Month) No 09/15/2024 3:30 AM EDT Abby Ulrich RN 6. Suicidal Behavior (Lifetime) No 09/15/2024 3:30 AM EDT Abby Ulrich RN documented as of this encounter Plan of Treatment Not on file documented as of this encounter Procedures Procedure Name Priority Date/Time Associated Diagnosis Comments XR KNEE 4 OR MORE VIEWS (LEFT) Urgent/patient waiting 02/19/2023 1:21 PM EST Acute pain of left knee documented in this encounter Results * XR KNEE 4 OR MORE VIEWS (LEFT) (02/19/2023 1:21 PM EST) Anatomical Region Laterality Modality Knee Left Computed Radiogr aphy 02/19/2023 1:34 PM EST Impressions 02/19/2023 1:35 PM EST No displaced fracture or traumatic malalignment. Narrative 02/19/2023 1:35 PM EST XR KNEE 4 OR MORE VIEWS (LEFT) Referring clinician's provided indication for this examination in Epic: Pain; S/P Fall COMPARISON: None FINDINGS: Left Knee: No displaced fracture or traumatic malalignment. Mild medial tibiofemoral compartment cartilage space narrowing with subchondral sclerosis. No joint effusion. Procedure Note Trent Sullivan DO - 02/19/2023 XR KNEE 4 OR MORE VIEWS (LEFT) Referring clinician's provided indication for this examination in Epic:Pain; S/P Fall COMPARISON: None FINDINGS: Left Knee: No displaced fracture or traumatic malalignment. Mild medialtibiofemoral compartment cartilage space narrowing with subchondralsclerosis. No joint effusion. IMPRESSION: No displaced fracture or traumatic malalignment. Rosa Loja Hammadtravis [employer] POL[employer]ER IMG XR LOWER EXTREMITY Ingrid l Result documented in this encounter Visit Diagnoses Not on filedocumented in this encounter Additional Health Concerns Infection Onset Date Last Indicated Resolved Time CoV-Risk 08/23/2023 08/23/2023 09/03/2023 1:21 AM EDT CoV-Risk 05/06/2024 05/06/2024 05/17/2024 1:22 AM EST documented as of this encounter Care Teams Sebd Teacher Relationship Specialty Start Date End Date Sundeep Sosa MD [address] [id number] PCP - General Family Medicine 12/08/19 Sundeep Sosa MD [address] [address] Family Medicine 11/25/19 documented as of this encounter Additional Source Comments The information contained in this document represents components of the legal health record. It is not the complete legal health record.[facility]
--- NOTE | 2024-11-14 13:44 | A.OFFVIS_ITS ---
Intake Visit Reasons: Urgent follow up Allergies morphine Allergy (Verified 10/25/24 11:41) Unknown HPI Comments Details: 74-yr-old male presents for f/u telephone visit for Parkinson's disease, accompanied by his nursing home staff Garry high. Patient was unable to utilize [employer] technology today. 10/21/2024, [facility] neuropsychiatric evaluation: Per the consultation note, neuropsychological testing was deferred as it was felt that this patient was unable to communicate consistently or coherently, nor reliably manipulate objects, write, or draw in any capacity that would allow for reliable testing However, the patient?s symptoms were reported as consistent with major neurocognitive disorder due to multiple etiologies, moderate, with behavioral disturbance; Parkinson's disease with dyskinesias; schizophrenia; depressive disorder; anxiety disorder, though the possibility of another underlying neurodegenerative process could not be excluded. Since the last visit here, on 10/25/[address] Garcia following the inpatient psychiatric hospitalization for paranoia and behavior changes, the patient has stopped the Rytary 23.75-95 mg. [facility] member notes that they discussed trying Vyalev with the nurse supervisor blast furnace, but they are not sure if this is something they can do in the nursing home setting. Staff member states patient is doing a little bit better; he still has good days and bad days. His mood is improving; however, he continues to have cognitive decline, with episodes of confusion, disoriented to time and place. Overall, the patient would not attempt to initiate most ADLs on his own, other than coming out for meals. Pt himself denies any specific concerns, request by his nursing home staff speak on his behalf. Pt's current PD medication regimen: Rytary 61.25-245mg- 2 caps QID at 5:30am, 10am, 2:30pm, 7pm, and 1 cap daily at 10pm Nuplazid 34mg qd. ADLs: Needing more help, depends on the day Swallowing: No issues Drooling: Denies Orthostatic lightheadedness: Denies any recent lightheadedness. Constipation: Denies Urinary symptoms: Patient denies any current urinary issues or nocturnal incontinence. Several months ago, he was taking oxybutynin for OAB s/s, and more recently, PCP ordered Myrbetriq, but it was denied by insurance. Freezing: Staff member states that he has not noticed this recently. Stiffness: Denies Dyskinesia: Decreased Tremor: None Falls: Denies interval falls Hallucinations: Denies. Memory: Staff member states that in general he has good days and bad days; however, his memory is worse overall, for instance, he is unaware of the time, may not know where he is, or is generally confused. Mood: Mood has been improving since the last psychiatric hospitalization Sleep: Sleeping ok, sleeping throughout the day. [facility] Medical History DVT (deep venous thrombosis) Diabetes Parkinsons Surgical History No pertinent past surgical history Social History Household Members: Other Housing: Other Do you presently have visiting nurse or other home services: No Alcohol intake: never Comment: 1:1 Patient Tobacco Use Status: Never used Tobacco service: No Sexual orientation: Straight/Heterosexual Physical Exam Const General: cooperative and no acute distress Resp Effort & Inspection: normal respiratory effort and able to speak in complete sentences Neuro Other: General: Alert, disoriented to time and place. Patient could not identify the current president. Voice: Hypophonia, bradyphrenia, at times difficult to understand Psych: Pleasant affect Telehealth Telehealth Telehealth Platform: Telephone Location of provider rendering services: practice address Location of patient: address on file Patient Identification confirmed using: Name, : Yes Telehealth method: voice only Patient verbally consented to treatment: Yes Patient verbally consented to billing insurance company: Yes Patient informed of any privacy concerns related to visit: Yes Minutes spent on Phone/Video with Pt.: 22 Assessment & Plan Assessment & Plan (1) Parkinson's disease with dyskinesia: Code(s): G20.B1 - Parkinson's disease with dyskinesia, without mention of fluctuations Category: Medical Qualifiers: Fluctuating manifestations: with fluctuating manifestations Qualified Code(s): G20.B2 - Parkinson's disease with dyskinesia, with fluctuations (2) Orthostatic hypotension dysautonomic syndrome: Code(s): I95.1 - Orthostatic hypotension Category: Medical (3) Mood disorder: Comment: w/ h/o delusions and hallucinations Code(s): F39 - Unspecified mood [affective] disorder Category: Medical (4) MCI (mild cognitive impairment): Code(s): G31.84 - Mild cognitive impairment of uncertain or unknown etiology Category: Medical Plan We will reach out to the nursing home nursing supervisor blast furnace to review the Vyalev protocol (for administration, maintenance, and troubleshooting) to determine if Vyalev can be administered in a managed in the patient's nursing home. Per the staff member, the contact number for the supervising nurse, Erika, is [phone]. In the meantime, continue: * Rytary 61. 25-245mg- 2 caps QID at 5:30am, 10am, 2:30pm, 7pm, and 1 cap daily at 10pm * Nuplazid 34mg qd Reviewed 10/21/2024 neuropsychiatric consult report, which they did not feel that the patient was capable of participating in the testing due to we will the cognitive and physical difficulties. In regards to question of a possible underlying alternative neurodegenerative disorder, such as AD/FTD, at this point, I do not feel that the patient would be a candidate for a trial of an anti-amyloid targeted Alzheimer's therapy, due to the severity of his current cognitive symptoms. Thus, at this time, there is likely no clinical benefit to be gained from further PET scan evaluation. Continue to monitor cognition; the patient may benefit from a trial of lower- dose memantine. Would avoid donepezil due to history of orthostatic hypotension/lightheadedness. Follow-up upon review of above, and as scheduled with Dr. Garcia in January Coding Level of Care Code Tele Est Pt Level 4 (51037) Diagnoses Parkinson's disease with dyskinesia and fluctuating manifestations G20.B2 Fluctuating manifestations: with fluctuating manifestations Orthostatic hypotension dysautonomic syndrome I95.1 Mood disorder F39 MCI (mild cognitive impairment) G31.84
--- OUTSIDE RECORDS SUMMARY | 2024-11-14 16:23 | XMS_ITS | Encounter Summary ---
Author Organization [facility] Address [address] [place] [address] Phone Care Team Providers Care Family Preservation Caseworker Name Role Phone Sundeep Sosa MD Unavailable Sundeep Sosa MD Primary Care Provide r AdriaHarvinder Jaun DO Unavailable Encounter Details Date Type Department Care Team (Late st Contact Info) Description 08/23/2023 Procedure Pass [facility], Ct Scan - [facility] [address] [place] [address] Social History Tobacco Use Types Packs/Day Years [...] 08/23/2023 11:18 AM Lei Godwin RN * [place] Suicide Severity Rating Scale (Screener/Recent Self-Report) Question [...] on file documented as of this encounter Visit Diagnoses Not on filedocumented in this encounter Additional Health Concerns Infection Onset Date Last Indicated Resolved Time CoV-Risk 08/23/2023 08/23/2023 09/03/2023 1:21 AM EDT CoV-Risk 05/06/2024 05/06/2024 05/17/2024 1:22 AM EST documented as of this encounter Care Teams Family Preservation Caseworker Relationship Specialty Start Date End Date Sundeep Sosa MD [address] [address] PCP - General Family Medicine 12/08/19 Sundeep Sosa MD [address] [address] Family Medicine 11/25/19 Harvinder Covington DO [address] [place] [address] [email or web address] Geriatric Medicine 05/27/24 documented as of this encounter Additional Source Comments The information contained in this document represents components of the legal health record. It is not the complete legal health record.[facility]
--- OUTSIDE RECORDS SUMMARY | 2024-11-14 16:23 | XMS_ITS | Encounter Summary ---
Author Organization [facility] Address [address] [place] [address] Phone Care Team Providers Care Garland Machine Operator Name Role Phone Sundeep Sosa MD Unavailable Sundeep Sosa MD Primary Care Provide r AdriaHarvinder Jaun DO Unavailable [phone] Encounter Details Date Type Department Care Team (Late st Contact Info) Description 05/29/2023 Procedure Pass [facility], Ct Scan - [facility] [address] [place] [address] Social History Tobacco Use Types Packs/Day Years [...] Date of Assessment Author No Risk Indicated 05/29/2023 12:31 PM EST Roxanne Dupree RN * [place] Suicide Severity Rating Scale (Screener/Recent Self-Report) Question Answer Date of Assessment Author 1. Wish to be (Past 1 Month) No 05/29/2023 12:31 PM EST Roxanne Haney RN 2. Non-Specific Active Suici darnell Thoughts (Past 1 Month) No 05/29/2023 12:31 PM EST Ira Haney cia, RN 6. Suicidal Behavior (Lifetime) No 12:31 PM EST Roxanne Haney RN documented as of this encounter Plan of Treatment Not on file documented as of this encounter Visit Diagnoses Not on filedocumented in this encounter Additional Health Concerns Infection Onset Date Last Indicated Resolved Time CoV-Risk 08/23/2023 08/23/2023 09/03/2023 1:21 AM EDT CoV-Risk 05/06/2024 05/06/2024 05/17/2024 1:22 AM EST documented as of this encounter Care Teams Garland Machine Operator Relationship Specialty Start Date End Date Sundeep Sosa MD [address] [address] PCP - General Family Medicine 12/08/19 Sundeep Sosa MD [address] [address] Family Medicine 11/25/19 Harvinder Covington DO [address] [place] [address] [email or web address] Geriatric Medicine 05/27/24 documented as of this encounter Additional Source Comments The information contained in this document represents components of the legal health record. It is not the complete legal health record.[facility]
--- OUTSIDE RECORDS SUMMARY | 2024-11-14 16:23 | XMS_ITS | Encounter Summary ---
Author Organization [facility] Address [address] [place] [address] Phone Care Team Providers Care Race Engine Builder Name Role Phone Sundeep Sosa MD Unavailable Sundeep Sosa MD Primary Care Provide r AdriaHarvinder Jaun DO Unavailable Encounter Details Date Type Department Care Team (Late st Contact Info) Description 07/12/2023 Procedure Pass [facility], Ct Scan - [facility] [address] [place] [address] Social History Tobacco Use Types Packs/Day Years [...] Date of Assessment Author No Risk Indicated 07/12/2023 9:23 AM EDT Sabirna Noyola RN * [place] Suicide Severity Rating Scale (Screener/Recent Self-Report) Question Answer Date of Assessment Author 1. Wish to be (Past 1 Month) No 024 9:23 AM EDT Sabrina Toure RN 2. Non-Specific Active Suici darnell Thoughts (Past 1 Month) No 07/12/2023 9:23 AM EDT Obdulio Toure RN 6. Suicidal Behavior (Lifetime) No 9:23 AM EDT Sabrina Toure RN documented as of this encounter Plan of Treatment Not on file documented as of this encounter Visit Diagnoses Not on filedocumented in this encounter Additional Health Concerns Infection Onset Date Last Indicated Resolved Time CoV-Risk 08/23/2023 08/23/2023 09/03/2023 1:21 AM EDT CoV-Risk 05/06/2024 05/06/2024 05/17/2024 1:22 AM EST documented as of this encounter Care Teams Race Engine Builder Relationship Specialty Start Date End Date Sundeep Sosa MD [address] [address] PCP - General Family Medicine 12/08/19 Sundeep Sosa MD [address] [address] Family Medicine 11/25/19 Harvinder Covington DO [address] [place] [address] [email or web address] Geriatric Medicine 05/27/24 documented as of this encounter Additional Source Comments The information contained in this document represents components of the legal health record. It is not the complete legal health record.[facility]
--- OUTSIDE RECORDS SUMMARY | 2024-11-14 16:23 | XMS_ITS | Encounter Summary ---
Author Organization [facility] Address [address] [facility] [address] [place] [address] Phone Care Team Providers Care Dimmer Board Operator Name Role Phone Sundeep Sosa MD Unavailable Sundeep Sosa MD Primary Care Provide r Adria Harvinder Jaun DO Unavailable [phone] Encounter Details Date Type Department Care Team (Late st Contact Info) Description 05/03/2021 Procedure Pass [facility], Ct Scan - [facility] [address] [place] [address] Social History Tobacco Use Types Packs/Day Years Used Date Smoking Tobacco: Never Smokeless Tobacco: Never Alcohol Use Standard Drinks/Week Comments Yes 0 (1 standard drink = 0.6 oz pur e alcohol) rare Sex and Gender Information Value Date Recorded Sex Assigned at Male 06/02/2018 5:44 PM EDT Legal Sex Male 7:23 PM EST Gender Identity Male 06/02/2018 5:44 PM EDT Sexual Orientation Straight 06/02/2018 5: 44 PM EDT documented as of this encounter Functional Status * Calculated C-SSRS Risk Score (Lifetime/Recent) Answer Date of Assessment Author No Risk Indicated 05/03/2021 2:56 PM Maxine Zhang RN * [place] Suicide Severity Rating Scale (Screener/Recent Self-Report) Question Answer Date of Assessment Author 1. Wish to be (Past 1 Month) No 022 2:56 PM Maxine Beard RN 2. Non-Specific Active Suici darnell Thoughts (Past 1 Month) No 05/03/2021 2:56 PM Mckay Beard RN 6. Suicidal Behavior (Lifetime) No 2:56 PM Maxine Beard RN documented as of this encounter Plan of Treatment Not on file documented as of this encounter Visit Diagnoses Not on filedocumented in this encounter Additional Health Concerns Infection Onset Date Last Indicated Resolved Time MRSA Comment:Import to add expiration date of 06/08/2021 per Infection Control as part of historical infection status reconciliation 04/04/2010 04/04/2010 06/09/19 22 1:33 AM EDT CoV-Risk 08/23/2023 08/23/2023 09/03/2023 1:21 AM EDT CoV-Risk 05/06/2024 05/06/2024 05/17/2024 1:22 AM EST documented as of this encounter Care Teams Dimmer Board Operator Relationship Specialty Start Date End Date Sundeep Sosa MD [address] [address] PCP - General Family Medicine 12/08/19 Sundeep Sosa MD [address] [address] Family Medicine 11/25/19 Harvinder Covington DO [address] [place] [address] Geriatric Medicine 05/27/24 documented as of this encounter Additional Source Comments The information contained in this document represents components of the legal health record. It is not the complete legal health record.[facility]
--- OUTSIDE RECORDS SUMMARY | 2024-11-14 16:23 | XMS_ITS | Encounter Summary ---
Author Organization [facility] Address [address] [place] [address] Phone Care Team Providers Care Block Cuber Name Role Phone Sundeep Sosa MD Unavailable [phone] Sundeep Sosa MD Primary Care Provide r AdriaHarvinder Jaun DO Unavailable [phone] Encounter Details Date Type Department Care Team (Late st Contact Info) Description 08/23/2023 Procedure Pass [facility], Ct Scan - [facility] [address] [place] [address] Social History Tobacco Use Types Packs/Day Years [...] 08/23/2023 11:18 AM Lei Godwin RN * [place] Suicide Severity Rating Scale (Screener/Recent Self-Report) Question Answer Date of Assessment Author 1. Wish to be (Past 1 Month) No 024 11:18 AM eLi Godwin RN 2. Non-Specific Active Suici darnell [...] documented as of this encounter Care Teams Block Cuber Relationship Specialty Start Date End Date Sundeep Sosa MD [address] [address] PCP - General Family Medicine 12/08/19 Sundeep Sosa MD [address] [address] Family Medicine 11/25/19 Harvinder Covington DO [address] [place] [address] [email or web address] Geriatric Medicine 05/27/24 documented as of this encounter Additional Source Comments The information contained in this document represents components of the legal health record. It is not the complete legal health record.[facility]
--- OUTSIDE RECORDS SUMMARY | 2024-11-14 16:23 | XMS_ITS | Encounter Summary ---
Author Organization [facility] Address [address] [facility] [address] [place] [address] Phone Care Team Providers Care Torpedoman'S Mate Name Role Phone Sundeep Sosa MD Unavailable [phone] Sundeep Sosa MD Primary Care Provide r Adria Harvinder Jaun DO Unavailable [phone] Encounter Details Date Type Department Care Team (Late st Contact Info) Description 05/03/2021 Procedure Pass [facility], Ct Scan - [facility] [address] [place] [address] Social History Tobacco Use Types Packs/Day Years [...] 05/03/2021 2:56 PM Maxine Zhang RN * [place] Suicide Severity Rating Scale (Screener/Recent Self-Report) Question [...] documented as of this encounter Care Teams Torpedoman'S Mate Relationship Specialty Start Date End Date Sundeep Sosa MD [address] [address] PCP - General Family Medicine 12/08/19 Sundeep Sosa MD [address] [address] Family Medicine 11/25/19 Harvinder Covington DO [address] [place] [address] Geriatric Medicine 05/27/24 documented as of this encounter Additional Source Comments The information contained in this document represents components of the legal health record. It is not the complete legal health record.[facility]
--- OUTSIDE RECORDS SUMMARY | 2024-11-14 16:23 | XMS_ITS | Encounter Summary ---
Author Organization [facility] Address [address] [facility] [address] [place] [address] Phone Care Team Providers Care Wellness Spa Manager Name Role Phone Sundeep Sosa MD Unavailable Sundeep Sosa MD Primary Care Provide r Adria Harvinder Jaun DO Unavailable [phone] Encounter Details Date Type Department Care Team (Late st Contact Info) Description 05/03/2021 Procedure Pass [facility], Ct Scan - [facility] [address] [place] [address] Social History Tobacco Use Types Packs/Day Years [...] 05/03/2021 2:56 PM Maxine Zhang RN * [place] Suicide Severity Rating Scale (Screener/Recent Self-Report) Question [...] documented as of this encounter Care Teams Wellness Spa Manager Relationship Specialty Start Date End Date Sundeep Sosa MD [address] [address] PCP - General Family Medicine 12/08/19 Sundeep Sosa MD [address] [address] Family Medicine 11/25/19 Harvinder Covington DO [address] [place] [address] Geriatric Medicine 05/27/24 documented as of this encounter Additional Source Comments The information contained in this document represents components of the legal health record. It is not the complete legal health record.[facility]
--- OUTSIDE RECORDS SUMMARY | 2024-11-14 16:23 | XMS_ITS | Encounter Summary ---
Author Organization [facility] Address [address] [facility] [place] [address] Phone Care Team Providers Care Nurse Prn Name Role Phone Sundeep Sosa MD Unavailable [phone] Sundeep Sosa MD Primary Care Provide r Adria Harvinder Jaun DO Unavailable Encounter Details Date Type Department Care Team (Late st Contact Info) Description 02/08/2022 Procedure Pass [facility], Ct Scan - [facility] [address] [place] [address] Social History Tobacco Use Types Packs/Day Years [...] Date of Assessment Author No Risk Indicated 02/08/2022 9:39 AM Maxine Zhang RN * [place] Suicide Severity Rating Scale (Screener/Recent Self-Report) Question Answer Date of Assessment Author 1. Wish to be (Past 1 Month) No 022 9:39 AM Maxine Beard RN 2. Non-Specific Active Suici darnell Thoughts (Past 1 Month) No 02/08/2022 9:39 AM Mckay Beard RN 6. Suicidal Behavior (Lifetime) No 9:39 AM Maxine Beard RN documented as of this encounter Plan of Treatment Not on file documented as of this encounter Visit Diagnoses Not on filedocumented in this encounter Additional Health Concerns Infection Onset Date Last Indicated Resolved Time CoV-Risk 08/23/2023 08/23/2023 09/03/2023 1:21 AM EDT CoV-Risk 05/06/2024 05/06/2024 05/17/2024 1:22 AM EST documented as of this encounter Care Teams Nurse Prn Relationship Specialty Start Date End Date Sundeep Sosa MD [address] [address] PCP - General Family Medicine 12/08/19 Sundeep Sosa MD [address] [address] Family Medicine 11/25/19 Harvinder Covington DO [address] [place] [address] [email or web address] Geriatric Medicine 05/27/24 documented as of this encounter Additional Source Comments The information contained in this document represents components of the legal health record. It is not the complete legal health record.[facility]
--- OUTSIDE RECORDS SUMMARY | 2024-11-14 16:23 | XMS_ITS | Encounter Summary ---
Author Organization [facility] Address [address] [place] [address] Phone Care Team Providers Care Fur Dry Cleaner Hand Name Role Phone Sundeep Sosa MD Unavailable Sundeep Sosa MD Primary Care Provide r AdriaHarvinder Jaun DO Unavailable Encounter Details Date Type Department Care Team (Late st Contact Info) Description 04/26/2023 Procedure Pass [facility], Ct Scan - [facility] [address] [place] [address] Social History Tobacco Use Types Packs/Day Years [...] Date of Assessment Author No Risk Indicated 04/26/2023 10:09 AM Denise Herrera RN * [place] Suicide Severity Rating Scale (Screener/Recent Self-Report) Question Answer Date of Assessment Author 1. Wish to be (Past 1 Month) No 024 10:09 AM Denise Herrera RN 2. Non-Specific Active Suici darnell Thoughts (Past 1 Month) No 04/26/2023 10:09 AM Mark Herrera RN 6. Suicidal Behavior (Lifetime) No 10:09 AM Denise Herrera RN documented as of this encounter Plan of Treatment Not on file documented as of this encounter Visit Diagnoses Not on filedocumented in this encounter Additional Health Concerns Infection Onset Date Last Indicated Resolved Time CoV-Risk 08/23/2023 08/23/2023 09/03/2023 1:21 AM EDT CoV-Risk 05/06/2024 05/06/2024 05/17/2024 1:22 AM EST documented as of this encounter Care Teams Fur Dry Cleaner Hand Relationship Specialty Start Date End Date Sundeep Sosa MD [address] [address] PCP - General Family Medicine 12/08/19 Sundeep Sosa MD [address] [address] Family Medicine 11/25/19 Harvinder Covington DO [address] [place] [address] [email or web address] Geriatric Medicine 05/27/24 documented as of this encounter Additional Source Comments The information contained in this document represents components of the legal health record. It is not the complete legal health record.[facility]
--- OUTSIDE RECORDS SUMMARY | 2024-11-14 16:23 | XMS_ITS | Encounter Summary ---
Author Organization [facility] Address [address] [place] [address] Phone Care Team Providers Care Beater Room Helper Name Role Phone Sundeep Sosa MD Unavailable [phone] Sundeep Sosa MD Primary Care Provide r AdriaHarvinder Jaun DO Unavailable Encounter Details Date Type Department Care Team (Late st Contact Info) Description 05/29/2023 Procedure Pass [facility], Ct Scan - [facility] [address] [place] [address] Social History Tobacco Use Types Packs/Day Years [...] 12:31 PM EST Roxanne Dupree RN * [place] Suicide Severity Rating Scale (Screener/Recent Self-Report) Question [...] documented as of this encounter Care Teams Beater Room Helper Relationship Specialty Start Date End Date Sundeep Sosa MD [address] [address] PCP - General Family Medicine 12/08/19 Sundeep Sosa MD [address] [address] Family Medicine 11/25/19 Harvinder Covington DO [address] [place] [address] [email or web address] Geriatric Medicine 05/27/24 documented as of this encounter Additional Source Comments The information contained in this document represents components of the legal health record. It is not the complete legal health record.[facility]
--- OUTSIDE RECORDS SUMMARY | 2024-11-14 16:23 | XMS_ITS | Encounter Summary ---
Author Organization [facility] Address [address] [place] [address] Phone Care Team Providers Care Middle School Band Teacher Name Role Phone Sundeep Sosa MD Unavailable [phone] Sundeep Sosa MD Primary Care Provide r AdriaHarvinder Jaun DO Unavailable Encounter Details Date Type Department Care Team (Late st Contact Info) Description 06/25/2024 Procedure Pass [facility], Ct Scan - [facility] [address] [place] [address] Social History Tobacco Use Types Packs/Day Years [...] got money to buy more. Never True 06/28/2024 Within the past 6 months the food we bought just didn't last and we didn't have enough money to get more. Never True Residential Stability Answer Date Recor ded What is your housing situation today? I have dave milligan 06/28/2024 How many times have you moved in the past 12 thu ths? Unable to assess 06/28/2024 Paying for Meds Answer Date Recorded Do you have trouble paying for medicines? No 06/28/2024 Paying Utility Bills Answer Date Record ed Do you have trouble paying your heating or elect ricity bill? No 06/28/2024 Transportation Answer Date Recorded Has the lack of transportati on kept you from medical appointments or from getting medications? No 06/28/2024 Digital Access Answer Date Recorded No 06/28/2024 No 06/28/2024 Do you have reliable internet access at home? Un able to assess 06/28/2024 Do you have a device (e.g., phone, tablet, computer) with a working camera? Unable to assess 06/28/2024 Intimate Partner Violence Answer Date R ecorded Are you denied basic needs s uch as food, clothing, or medical care? No 06/28/2024 In the past 12 months have y ou been in a relationship with a person who hurts, threatens, or tries to control you? No 06/28/2024 Are you denied basic needs s uch as food, clothing, or medical care? No 06/28/2024 In the past 12 months have y ou been in a relationship with a person who hurts, threatens, or tries to control you? No 06/28/2024 Sex and Gender Information Value Date Recorded Sex Assigned at Male 06/02/2018 5:44 PM EDT Legal Sex Male 7:23 PM EST Gender Identity Male 06/02/2018 5:44 PM EDT Sexual Orientation Straight 06/02/2018 5: 44 PM EDT documented as of this encounter Functional Status * Calculated C-SSRS Risk Score (Lifetime/Recent) Answer Date of Assessment Author No Risk Indicated 06/27/2024 7:27 PM EDT Lorena Silva RN * [place] Suicide Severity Rating Scale (Screener/Recent Self-Report) Question Answer Date of Assessment Author 1. Wish to be (Past 1 Month) No 06/27/2024 7:27 PM EDT Lorena Hoover RN 2. Non-Specific Active Suicidal Thoughts (Past 1 Month) No 06/27/2024 7:27 PM EDT Lorena Hoover RN 6. Suicidal Behavior (Lifetime) No 06/27/2024 7:27 PM EDT Lorena Hoover RN documented as of this encounter Plan of Treatment Not on file documented as of this encounter Visit Diagnoses Not on filedocumented in this encounter Care Teams Middle School Band Teacher Relationship Specialty Start Date End Date Sundeep Sosa MD [address] [address] PCP - General Family Medicine 12/08/19 Sundeep Sosa MD [address] [address] Family Medicine 11/25/19 Harvinder Covington DO [address] [place] [address] [email or web address] Geriatric Medicine 05/27/24 documented as of this encounter Additional Source Comments The information contained in this document represents components of the legal health record. It is not the complete legal health record.[facility]
--- OUTSIDE RECORDS SUMMARY | 2024-11-14 16:24 | XMS_ITS | Encounter Summary ---
Author Organization [facility] Address [address] [place] [address] Phone Care Team Providers Care Bilingual Call Center Representative Name Role Phone Sundeep Sosa MD Unavailable Sundeep Sosa MD Primary Care Provide r AdriaHarvinder Jaun DO Unavailable Encounter Details Date Type Department Care Team (Late st Contact Info) Description 06/29/2024 Procedure Pass [facility] Admitting [facility] Virtual Department [address] [place] [address] Social History Tobacco Use Types Packs/Day Years [...] PM EDT documented as of this encounter Plan of Treatment Not on file documented as of this encounter Visit Diagnoses Not on filedocumented in this encounter Care Teams Bilingual Call Center Representative Relationship Specialty Start Date End Date Sundeep Sosa MD [address] [address] PCP - General Family Medicine 12/08/19 Sundeep Sosa MD [address] [address] Family Medicine 11/25/19 Harvinder Covington DO [address] [place] [address] [email or web address] Geriatric Medicine 05/27/24 documented as of this encounter Additional Source Comments The information contained in this document represents components of the legal health record. It is not the complete legal health record.[facility]
--- OUTSIDE RECORDS SUMMARY | 2024-11-14 16:24 | XMS_ITS | Encounter Summary ---
Author Organization [facility] Address [address] [place] [address] Phone Care Team Providers Care Ip Paralegal Name Role Phone Sundeep Sosa MD Unavailable Sundeep Sosa MD Primary Care Provide r AdriaHarvinder Jaun DO Unavailable Encounter Details Date Type Department Care Team (Late st Contact Info) Description 07/29/2024 Procedure Pass [facility], Ct Scan - [facility] 30 [place] [address] Social History Tobacco Use Types Packs/Day Years [...] got money to buy more. Never True 07/30/2024 Within the past 6 months the food we bought just didn't last and we didn't have enough money to get more. Never True Residential Stability Answer Date Recor ded What is your housing situation today? I have dave sing 07/30/2024 How many times have you move d in the past 12 months? Zero (I did not move) 07/30/2024 Paying for Meds Answer Date Recorded Do you have trouble paying for medicines? No 07/30/2024 Paying Utility Bills Answer Date Record ed Do you have trouble paying your heating or elect ricity bill? No 07/30/2024 Transportation Answer Date Recorded Has the lack of transportati on kept you from medical appointments or from getting medications? No 07/30/2024 Digital Access Answer Date Recorded No 07/30/2024 Yes 07/30/2024 Do you have reliable internet access at home? Ye s 07/30/2024 Do you have a device (e.g., phone, tablet, computer) with a working camera? Yes 07/30/2024 Intimate Partner Violence Answer Date R ecorded Are you denied basic needs s uch as food, clothing, or medical care? No 07/30/2024 In the past 12 months have y ou been in a relationship with a person who hurts, threatens, or tries to control you? No 07/30/2024 Are you denied basic needs s uch as food, clothing, or medical care? No 07/30/2024 In the past 12 months have y ou been in a relationship with a person who hurts, threatens, or tries to control you? No 07/30/2024 Sex and Gender Information Value Date Recorded Sex Assigned at Male 06/02/2018 5:44 PM EDT Legal Sex Male 7:23 PM EST Gender Identity Male 06/02/2018 5:44 PM EDT Sexual Orientation Straight 06/02/2018 5: 44 PM EDT documented as of this encounter Functional Status * Calculated C-SSRS Risk Score (Lifetime/Recent) Answer Date of Assessment Author No Risk Indicated 07/30/2024 3:05 PM EDT Abida Cruz RN * [place] Suicide Severity Rating Scale (Screener/Recent Self-Report) Question Answer Date of Assessment Author 1. Wish to be (Past 1 Month) No 025 3:05 PM EDT Abida Cruz RN 2. Non-Specific Active Suici darnell Thoughts (Past 1 Month) No 07/30/2024 3:05 PM EDT Fady Cruz RN 6. Suicidal Behavior (Lifetime) No 5 3:05 PM EDT Abida Cruz RN documented as of this encounter Plan of Treatment Not on file documented as of this encounter Visit Diagnoses Not on filedocumented in this encounter Care Teams Ip Paralegal Relationship Specialty Start Date End Date Sundeep Sosa MD [address] [address] PCP - General Family Medicine 12/08/19 Sundeep Sosa MD [address] [address] Family Medicine 11/25/19 Harvinder Covington DO [address] [place] [address] [email or web address] Geriatric Medicine 05/27/24 documented as of this encounter Additional Source Comments The information contained in this document represents components of the legal health record. It is not the complete legal health record.[facility]
--- OUTSIDE RECORDS SUMMARY | 2024-11-14 16:24 | XMS_ITS | Encounter Summary ---
Author Organization [facility] Address [address] [place] [address] Phone Care Team Providers Care Slab Lifting Engineer Name Role Phone Sundeep Sosa MD Unavailable Sundeep Sosa MD Primary Care Provide r AdriaHarvinder DO Unavailable [phone] Encounter Details Date Type Department Care Team (Late st Contact Info) Description 08/26/2022 Procedure Pass [facility], Ct Scan - [facility] [address] [place] [address] Social History Tobacco Use Types Packs/Day Years Used Date Smoking Tobacco: Never Smokeless Tobacco: Never Alcohol Use Standard Drinks/Week Comments Yes 0 (1 standard drink = 0.6 oz pur e alcohol) rare Education Answer Date Recorded Are you interested [...] documented as of this encounter Care Teams Slab Lifting Engineer Relationship Specialty Start Date End Date Sundeep Sosa MD [address] [address] PCP - General Family Medicine 12/08/19 Sundeep Sosa MD [address] [address] Family Medicine 11/25/19 Harvinder Covington DO [address] [place] [address] Geriatric Medicine 05/27/24 documented as of this encounter Additional Source Comments The information contained in this document represents components of the legal health record. It is not the complete legal health record.[facility]
--- OUTSIDE RECORDS SUMMARY | 2024-11-14 16:24 | XMS_ITS | Encounter Summary ---
Author Organization [facility] Address [address] [place] [address] Phone Care Team Providers Care Plans Examiner Name Role Phone Sundeep Sosa MD Unavailable Sundeep Sosa MD Primary Care Provide r AdriaHarvinder Jaun DO Unavailable [phone] Encounter Details Date Type Department Care Team (Late st Contact Info) Description 07/30/2024 Procedure Pass [facility], Ct Scan - [facility] [address] [place] [address] Social History Tobacco Use Types Packs/Day Years [...] 3:05 PM EDT Abida Cruz RN * [place] Suicide Severity Rating Scale (Screener/Recent Self-Report) Question [...] on filedocumented in this encounter Care Teams Plans Examiner Relationship Specialty Start Date End Date Sundeep Sosa MD [address] [address] PCP - General Family Medicine 12/08/19 Sundeep Sosa MD [address] [address] Family Medicine 11/25/19 Harvinder Covington DO [address] [place] [address] [email or web address] Geriatric Medicine 05/27/24 documented as of this encounter Additional Source Comments The information contained in this document represents components of the legal health record. It is not the complete legal health record.[facility]
--- OUTSIDE RECORDS SUMMARY | 2024-11-14 16:24 | XMS_ITS | Encounter Summary ---
Author Organization [facility] Address [address] [facility] [address] [place] [address] Phone Care Team Providers Care Raisin Washer Name Role Phone Sundeep Sosa MD Unavailable Sundeep Sosa MD Primary Care Provide r AdriaHarvinder DO Unavailable [phone] Encounter Details Date Type Department Care Team (Late st Contact Info) Description 08/23/2022 Procedure Pass [facility], Ct Scan - [facility] 30 [place] [address] Social History Tobacco Use Types Packs/Day Years [...] Date of Assessment Author No Risk Indicated 08/23/2022 2:33 PM EDT Aishwarya Pedersen RN * [place] Suicide Severity Rating Scale (Screener/Recent Self-Report) Question Answer Date of Assessment Author 1. Wish to be (Past 1 Month) No 08/23/2022 2:33 PM EDT Lucy Pedersen R N 2. Non-Specific Active Suicidal Thoughts (Past 1 Month) No 08/23/2022 5:37 AM EDT Amina Cates RN 6. Suicidal Behavior (Lifetime) No 08/23/2022 2:33 PM EDT Lucy Pedersen R N documented as of this encounter Plan of Treatment Not on file documented as of this encounter Visit Diagnoses Not on filedocumented in this encounter Additional Health Concerns Infection Onset Date Last Indicated Resolved Time CoV-Risk 08/23/2023 08/23/2023 09/03/2023 1:21 AM EDT CoV-Risk 05/06/2024 05/06/2024 05/17/2024 1:22 AM EST documented as of this encounter Care Teams Raisin Washer Relationship Specialty Start Date End Date Sundeep Sosa MD [address] [address] PCP - General Family Medicine 12/08/19 Sundeep Sosa MD [address] [address] Family Medicine 11/25/19 Harvinder Covington DO [address] [place] [address] [email or web address] Geriatric Medicine 05/27/24 documented as of this encounter Additional Source Comments The information contained in this document represents components of the legal health record. It is not the complete legal health record.[facility]
--- OUTSIDE RECORDS SUMMARY | 2024-11-14 16:24 | XMS_ITS | Encounter Summary ---
Author Organization [facility] Address [address] [place] [address] Phone Care Team Providers Care Menu Planner Name Role Phone Sundeep Sosa MD Unavailable Sundeep Sosa MD Primary Care Provide r AdriaHarvinder Jaun DO Unavailable Encounter Details Date Type Department Care Team (Late st Contact Info) Description 06/27/2024 Procedure Pass [facility], Ct Scan - [facility] [address] [place] [address] Social History Tobacco Use Types Packs/Day Years [...] 7:27 PM EDT Lorena Silva RN * [place] Suicide Severity Rating Scale (Screener/Recent Self-Report) Question [...] on filedocumented in this encounter Care Teams Menu Planner Relationship Specialty Start Date End Date Sundeep Sosa MD [address] [address] PCP - General Family Medicine 12/08/19 Sundeep Sosa MD [address] [address] Family Medicine 11/25/19 Harvinder Covington DO [address] [place] [address] [email or web address] Geriatric Medicine 05/27/24 documented as of this encounter Additional Source Comments The information contained in this document represents components of the legal health record. It is not the complete legal health record.[facility]
--- OUTSIDE RECORDS SUMMARY | 2024-11-14 16:24 | XMS_ITS | Encounter Summary ---
Author Organization [facility] Address [address] [place] [address] Phone Care Team Providers Care Plastic Parts Designer Name Role Phone Sundeep Sosa MD Unavailable Sundeep Sosa MD Primary Care Provide r AdriaHarvinder Jaun DO Unavailable [phone] Encounter Details Date Type Department Care Team (Late st Contact Info) Description 07/30/2024 Procedure Pass [facility], Ct Scan - [facility] [address] [place] [address] Social History Tobacco Use Types Packs/Day Years [...] 3:05 PM EDT Abida Cruz RN * [place] Suicide Severity Rating Scale (Screener/Recent Self-Report) Question [...] on filedocumented in this encounter Care Teams Plastic Parts Designer Relationship Specialty Start Date End Date Sundeep Sosa MD [address] [address] PCP - General Family Medicine 12/08/19 Sundeep Sosa MD [address] [address] Family Medicine 11/25/19 Harvinder Covington DO [address] [place] [address] [email or web address] Geriatric Medicine 05/27/24 documented as of this encounter Additional Source Comments The information contained in this document represents components of the legal health record. It is not the complete legal health record.[facility]
--- OUTSIDE RECORDS SUMMARY | 2024-11-14 16:24 | XMS_ITS | Encounter Summary ---
Author Organization [facility] Address [address] [facility] [address] [place] [address] Phone Care Team Providers Care Rn Mds Name Role Phone Sundeep Sosa MD Unavailable [phone] Sundeep Sosa MD Primary Care Provide r Adria Harvinder Jaun DO Unavailable Encounter Details Date Type Department Care Team (Late st Contact Info) Description 02/08/2022 Procedure Pass [facility], Ct Scan - [facility] 30 [place] [address] Social History Tobacco Use Types Packs/Day Years [...] 02/08/2022 9:39 AM Maxine Zhang RN * [place] Suicide Severity Rating Scale (Screener/Recent Self-Report) Question [...] documented as of this encounter Care Teams Rn Mds Relationship Specialty Start Date End Date Sundeep Sosa MD [address] [address] PCP - General Family Medicine 12/08/19 Sundeep Sosa MD [address] [address] Family Medicine 11/25/19 Harvinder Covington DO [address] [place] [address] [email or web address] Geriatric Medicine 05/27/24 documented as of this encounter Additional Source Comments The information contained in this document represents components of the legal health record. It is not the complete legal health record.[facility]
--- OUTSIDE RECORDS SUMMARY | 2024-11-14 16:24 | XMS_ITS | Clinical Summary ---
Author Organization [facility] Address [address] [place] [address] Phone Care Team Providers Care Busgirl Name Role Phone Sundeep Sosa MD Unavailable Sundeep Sosa MD Primary Care Provide r Harvinder Covington DO Unavailable [phone] Allergies Active Allergy Reactions Criticality Noted Date Comments Morphine 11/22/2020 Medications acetaminophen (TYLENOL) 325 mg tablet Take 650 mg by mouth every 6 (six) hours as needed for mild pain or 1-3 (on a general 0-10 scale) or fever. Active sennosides (SENNA ORAL) Take 17.2 mg by mouth as needed (if no BM after 24h). 9 Active gabapentin (NEURONTIN) 400 MG capsule Take 400 mg by mouth 3 (three) times a day. Active cloZAPine (CLOZARIL) 25 MG tablet Take 25 mg by mouth nightly at bedtime. Active rosuvastatin (CRESTOR) 10 MG tablet Take 10 mg by mouth nightly at bedtime. Active metoprolol succinate (TOPROL-XL) 25 MG 24 hr tablet Take 25 mg by mouth nightly at bedtime. Active apixaban (ELIQUIS) 5 mg tablet Take 5 mg by mouth 2 (two) times a day. Active carbidopa-levod opa (RYTARY) 23.75-95 mg ER capsule Take 1 capsule by mouth 4 (four) times a day. 530 am, 10 am, 230 pm 7 pm Active carbidopa-levod opa (RYTARY) 61.25-245 mg ER capsule Take 2 capsules by mouth 4 (four) times a day. 530 am, 10 am, 230 pm 7 pm Active multivitamin per tablet Take 1 tablet by mouth daily. 3 Active bacitracin 500 unit/gram ointment Apply topically 2 (two) times a day. Until healed. 28 g 3 Active NUPLAZID 34 mg capsule Take 34 mg by mouth daily. Active carbidopa-levod opa (RYTARY) 61.25-245 mg ER capsule Take 1 capsule by mouth nightly at bedtime. Active oxyBUTYnin (DITROPAN) 5 MG tablet Take 5 mg by mouth nightly at bedtime. Active red wine Take 120 mL by mouth nightly at bedtime as needed. Active benzonatate (TESSALON) 100 MG capsule Take 100 mg by mouth 3 (three) times a day as needed for cough. Active magnesium oxide (MAG-OX) 400 mg (241.3 mg elemental) tablet Take 200-400 mg by mouth 2 (two) times a day. 200 mg in the morning and 400 mg at bedtime Active glimepiride (AMARYL) 4 MG tablet Take 4 mg by mouth daily before breakfast. 5 Active lisinopril (PRINIVIL,ZESTR IL) 5 MG tablet Take 1.5 tablets (7.5 mg total) by mouth daily as needed (if SBP >180.). 5 Active omeprazole (PRILOSEC) 20 MG capsule Take 1 capsule (20 mg total) by mouth 2 (two) times a day. 60 capsule 2 5 Active polyethylene glycol (MIRALAX) 17 gram packet Take 17 g by mouth daily. 100 packet 1 5 Active tolterodine (DETROL LA) 4 MG 24 hr capsule Take 4 mg by mouth daily. Active lisinopril (PRINIVIL,ZESTR IL) 2.5 MG tablet Take 2.5 mg by mouth daily. Take one tablet by mouth daily in the morning if SBP > than 140. If SBP >180 give 2 tabs in the morning. 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 EGD performed on 06/29 showed a large hiatal hernia, no other significant concern. Impression from GI is that fortune of the hernia may have precipitated the vomiting -- GI recommending Prilosec 20 mg twice daily, to start after discharge. Continue p.o. Protonix for now -- Regular diet as tolerated Assessment & Plan (06/29/2024 5:19 PM EDT): No further vomiting. EGD performed today showing a large hiatal hernia, no other significant concern -- GI recommending Prilosec 20 mg twice daily --Advancing diet Assessment & Plan (06/28/2024 2:07 AM EDT): Possible Abida-Foster tear. ED discussed with GI and with give IV PPI. Will have NPO for potential EGD. Hold Eliquis. Stercoral colitis 06/28/2024 Assessment & Plan (06/30/2024 3:35 PM EDT): Large stool burden with evidence of stercoral colitis on imaging. Afebrile and no abdominal pain. He was started on MiraLAX and senna. No significant stooling yet --Will give Dulcolax suppository. If no results, then enema Assessment & Plan (06/29/2024 5:19 PM EDT): Large stool burden with evidence of stercoral colitis on imaging. Afebrile and no abdominal pain. -- Ordered MiraLAX and senna. If no stooling, then suppository +/- enema Assessment & Plan (06/28/2024 2:07 AM EDT): Large stool burden with evidence of stercoral colitis on imaging. Afebrile and no abdominal pain. Will give stool softeners and an enema. If he develops a fever we will empirically give antibiotics. Fall, initial encounter 06/25/2024 Hypertension 08/27/2022 Assessment & Plan (06/30/2024 3:35 PM EDT): BP stable -- Continue metoprolol and lisinopril as scheduled Assessment & Plan (06/29/2024 5:19 PM EDT): He is on as needed lisinopril with scheduled metoprolol. BP in the 140s to 170s --Low-dose lisinopril Assessment & Plan (06/28/2024 2:07 AM EDT): He is on as needed lisinopril with scheduled metoprolol. We will continue the metoprolol. Hold lisinopril for the time being. Assessment & Plan (08/27/2022 12:27 PM EDT): Fluctuating hyperand hypotension, hypertension typically at night. CT head reassuring, no evidence of CVA. Hypertension currently attributed to intermittent anxiety. If patient does have hypertension again when calm, may need a new antihypertensive medication. I do want to be cautious however to avoid symptomatic hypotension orthostatic symptoms that could contribute to recurrent falls. Rib fractures 08/23/2022 Paroxysmal atrial fibrillation 04/19/2021 0 08/23/2022 Assessment & Plan (06/30/2024 3:35 PM EDT): Holding Eliquis out of concern for upper GI bleeding -- Soon if no new concerns in this regard Assessment & Plan (06/29/2024 5:19 PM EDT): Holding Eliquis out of concern for upper GI bleeding -- Soon if no new concerns in this regard Assessment & Plan (06/28/2024 2:07 AM EDT): Hold Eliquis in the setting of upper GI bleed. Assessment & Plan (08/27/2022 12:28 PM EDT): Patient was continued on Eliquis 5 mg twice daily for anticoagulation and metoprolol succinate 12.5 mg daily for rate control. Heart rates well controlled on this regimen trending in the 60s. Parkinson disease Assessment & Plan (06/30/2024 3:35 PM EDT): Continue carbidopa-levodopa as scheduled Assessment & Plan (06/29/2024 5:19 PM EDT): Continue carbidopa-levodopa as scheduled Assessment & Plan (06/28/2024 2:07 AM EDT): Continue home medications. intermediate staff is going to bring them in. Assessment & Plan (08/27/2022 12:31 PM EDT): Patient was continued on his chronic medications. Carbidopa-levodopa, clozapine, pimavanserin, gabapentin. Doing well on this regimen, no issues. Virtual monitoring. Patient does have some altered mental status with confusion heightened compared to baseline. This is thought to be due to the hospital environment. He has not received any opioids now for almost [address] head reassuring. Concern last night for CVA versus hypertensive urgency with transient blood pressure elevation which has been occurring each 24 hours. Low suspicion for infection. No fever or leukocytosis. B12, TSH requested. Discussed in detail with my supervising physician, no additional work-up indicated. We do feel that he would do best returning to his home environment however staff at the halfway do not have the ability to support his current fall risk with ambulatory deficit. Repeated evaluations with PT confirms the need for short- term rehab. Dementia due to Parkinson's disease, with agitat ion Assessment & Plan (08/27/2022 12:27 PM EDT): Support toileting schedule sleep-wake cycle, avoid sedatives, patient is stable, calm and cooperative. Intermittent anxiety and hypertension. DVT (deep venous thrombosis) Anxiety Assessment & Plan (08/27/2022 12:28 PM EDT): Continue chronic medications as above. Type 2 diabetes mellitus wit hout complication, without long-term current use of insulin Overview (08/23/2022): Type 2 Assessment & Plan (06/30/2024 3:35 PM EDT): POC hovering in the low to mid 200s -- Continue sliding scale insulin. Add Lantus 5 units nightly takes Amaryl at home that will be restarted at discharge Assessment & Plan (06/29/2024 5:19 PM EDT): We will give basal bolus insulin therapy. Assessment & Plan (06/28/2024 2:07 AM EDT): We will give basal bolus insulin therapy. Assessment & Plan (08/27/2022 12:28 PM EDT): Stable on outpatient regimen and sliding scale, with constant carbohydrate diet ordered. Closed fracture of multiple ribs of right side with routine healing Assessment & Plan (08/27/2022 12:23 PM EDT): Status post mechanical fall, hitting his back against a sink. CT time of admission confirmed acute right posterior 10th and 11th rib fractures mildly displaced, trace pleural effusion, no pneumothorax. Chest x-ray showed evidence of old rib fractures with no pneumonia. Patient has been doing well with pain management with scheduled Tylenol and a lidocaine patch. Opioids were discontinued due to mild confusion. No opioids received since 08/25. Doing well with physical therapy but felt to need short-term rehab. candy department manager working on placement. Apparently the patient was excepted for a bed at [facility]. intermediate staff is in agreement that patient is unsafe and at higher risk for fall, and uncomfortable with him returning to the halfway. Unfortunately the healthcare proxy does not want the patient to go to rehab, and feels that the patient would be better in his home environment. I have reached out to Kalee Roa, so far with no answer. candy department manager and social work nurse involved in placement decision making. Encounters Date Type Department Care Team Description 11/01/2024 3:15 PM EDT Office Visit [facility] [address] [place] [phone] Harvinder Covington, Severe dementia due to Parkinson's disease, with other behavioral disturbance (Primary Dx); Impaired decision making; Encounter for medication review; Frequent falls 11/01/2024 Telephone [facility] [address] [place] [phone] Christo Lorenzo, THAIS Visit Follow Up 10/18/2024 Telephone [facility] [address] [place] [phone] Christo Lorenzo RN 09/15/2024 3:00 AM EDT - 09/16/2024 1:58 PM EDT Emergency [facility] [address] [place] [address] Lorie Jones MD Chapin, Ethan Adair, MD Perez, Alberto Juan Ignacio, MD Daul, Adrian D, MD Discharge Disposition: Psychiatric Hospital 09/12/2024 Orders Only [facility] [address] [place] [id number] Homehealth, Interface ProviderMD from Last 3 Months Immunizations Immunization Administration Dates Next Due Tdap 04/08/2021 Social History Tobacco Use Types Packs/Day Years [...] Orientation Straight 06/02/2018 5: 44 PM EDT Last Filed Vital Signs Vital Sign Reading Time Taken Comments Blood Pressure 117/72 09/16/2024 10:23 AM EDT Pulse 90 11/01/2024 3:39 PM EDT Temperature 36.1 C (97 F) 09/16/2024 10:23 AM EDT Respiratory Rate 16 09/16/2024 10:23 AM EDT Oxygen Saturation 97% 11/01/2024 3:39 PM EDT Inhaled Oxygen Concentration - - Weight 81.6 kg (180 lb) 07/29/2024 5:06 PM EDT Height 180.3 cm (5' 11 ) 07/29/2024 5:06 PM EDT Body Mass Index 25.1 07/29/2024 5:06 PM EDT Plan of Treatment Health Maintenance Due Date Last Done Comments HEMOGLOBIN A1C 1950 HEPATITIS C SCREENING 1970 COLOGUARD 1997 FIT TEST 1997 FOBT 1997 SIGMOIDOSCOPY 1997 VIRTUAL COLONOSCOPY 1997 ZOSTER VACCINES (1 of 2) 2002 RSV VACCINE (1 - Risk 60-74 years 1-dose series) 2012 DIABETIC EYE EXAM 08/23/2022 BLOOD PRESSURE 08/20/2023 02/19/2023 COVID-19 VACCINE ( season) 2024 03/11/2024, 01/22/2023, 01/02/2022, Additional history exists ABSOLUTE NEUTROPHIL COUNT (ANC) 10/13/2024 09/15/2024, 07/29/2024, 07/01/2024, Additional history exists CREATININE LEVEL 09/15/2025 09/15/2024, 11/2024, 07/01/2024, Additional history exists POTASSIUM LEVEL 09/15/2025 09/15/2024, 05/0 11/2024, 07/01/2024, Additional history exists DEPRESSION SCREENING 11/01/2025 11/01/2024, 11/02/19 25 COLONOSCOPY 12/07/2029 12/08/2019 COLORECTAL CANCER SCREENING 12/07/2029 Adult Td,Tdap Booster 04/08/2031 04/08/2021, 015 PNEUMOCOCCAL VACCINES (50+ years) Completed 01/30/2023 SMOKING STATUS SCREENING (Once After 26 Yrs) Completed 11/01/2024 HEPATITIS A VACCINES Aged Out No long er eligible based on patient's age to complete this topic HIB VACCINES Aged Out No longer eligi ble based on patient's age to complete this topic MENINGOCOCCAL VACCINES (ACWY) Aged Out No longer eligible based on patient's age to complete this topic MENINGOCOCCAL VACCINES (B) Aged Out N o longer eligible based on patient's age to complete this topic Medical Devices Not on file Procedures Procedure Name Priority Date/Time Associated Diagnosis Comments ECG 12-LEAD STAT 09/16/2024 8:59 AM EDT TOXICOLOGY SCREEN, URINE STAT 09/15/2024 3:14 PM EDT URINALYSIS W/REFLEX URINE CULTURE STAT 09/15/2024 3:14 PM EDT SALICYLATES STAT 09/15/2024 3:37 AM EDT ACETAMINOPHEN LEVEL STAT 09/15/2024 3 :37 AM EDT ETHANOL, BLOOD STAT 09/15/2024 3:37 AM EDT LFTS (HEPATIC PANEL) STAT 09/15/2024 3:37 AM EDT BASIC METABOLIC PANEL STAT 09/15/2024 3:37 AM EDT CBC AND DIFFERENTIAL STAT 09/15/2024 3:37 AM EDT ENDOSCOPY, COLON 12/08/2019 10:3 0 AM EDT from Last 3 Months or Most Recently Relevant to Health Maintenance Results * ECG 12-LEAD (09/16/2024 8:59 AM EDT) Ventricular Rate EKG/MIN 66 BPM [facility] Atrial Rate 66 BPM [facility] AR Interval 142 ms [facility] QRS Duration 104 ms [facility] QT Interval 448 ms [facility] QTC Interval 469 ms [facility] P [place] 35 degrees [facility] R Wave [place] -8 degrees [facility] T [place] 19 degrees [facility] 09/16/2024 8:59 AM EDT 09/16/2024 10:07 AM EDT Narrative [facility] - 09/16/2024 10:07 AM EDT Normal sinus rhythm Normal ECG When compared with ECG of 30-Jul-2024 14:55, Nonspecific T wave abnormality, improved in Lateral leads Confirmed by Riley Garza ([id number]) on 09/16/2024 10:07:50 AM us Lorie Jones MD ECG ORDERABLES Final Result Performing Organization Address City/[facility]/ZIP Co de Phone Number [facility] * (ABNORMAL) Urinalysis w/reflex Urine Culture (09/15/2024 3:14 PM EDT) COLOR Yellow Yellow [facility] CLARITY Clear [facility] GLUCOSE 1+(A) Negative [facility] BILI Negative Negative [facility] KETONES Trace(A) Negative [facility] SPECIFIC GRAVITY 1.025 1.005 - 1.030 [facility] BLOOD Negative Negative [facility] PH 6.0 5.0 - 8.0 [facility] Protein-UA Negative Negative [facility] NITRITE Negative Negative [facility] Leukocyte esterase, ur Negative Negative [facility] Urine (Urine) 09/15/2024 3:1 4 PM EDT 09/15/2024 9:21 PM EDT us Jessica Soliz PA-C URINE ORDERABLES Final Resu lt Performing Organization Address City/[facility]/ZIP Co de Phone Number [facility] [address] [place] [address] * Toxicology screen, urine (09/15/2024 3:14 PM EDT) URINE CANNABINOIDS NONE DETECTED NONE DETECTED [facility] Comment:Cutoff: 50 ng/mL URINE COCAINE METAB NONE DETECTED NONE DETECTED [facility] Comment:Cutoff: 300 ng/mL URINE AMPHETAMINES NONE DETECTED NONE DETECTED [facility] Comment:Cutoff: 1000 ng/mL URINE METHADONE NONE DETECTED NONE DETECTED [facility] Comment:Cutoff: 300 ng/mL URINE OPIATES NONE DETECTED NONE DETECTED [facility] Comment:Cutoff: 300 ng/mL URINE PHENCYCLIDINE NONE DETECTED NONE DETECTED [facility] Comment:Cutoff: 25 ng/mL URINE OXYCODONE NONE DETECTED NONE DETECTED [facility] Comment:Cutoff: 300 ng/mL URINE BARBITURATES NONE DETECTED NONE DETECTED [facility] Comment:Cutoff: 200 ng/mL URINE BENZODIAZEPINE NONE DETECTED NONE DETECTED [facility] Comment:Cutoff: 200 ng/mL URINE BUPRENORPHINE NONE DETECTED NONE DETECTED [facility] Comment:Cutoff: 5 ng/mL Fentanyl, urine NONE DETECTED NONE DETECTED [facility] Comment: Cutoff: 5 ng/mL INTERPRETATION FOR TOXICOLOGY PANEL: These results are unconfirmed and should be used for Medical Treatment purposes only. Urine (Urine) 09/15/2024 3:1 4 PM EDT 09/15/2024 9:21 PM EDT Jessica IGLESIAS-Beata URINE ORDERABLES Final Resu lt Performing Organization Address City/[facility] Co de Phone Number [address] [address] * Ethanol, blood (09/15/2024 3:37 AM EDT) ETHANOL <10 <10 mg/dL [facility] Blood 09/15/2024 3:37 AM EDT 09/15/2024 3:43 AM EDT Jessica IGLESIAS-C LAB BLOOD ORDERABLES Final Result Performing Organization Address [facility] Co de Phone Number [address] [address] * (ABNORMAL) LFTs (hepatic panel) (09/15/2024 3:37 AM EDT) ALKALINE PHOSPHATASE 91 39 - 117 U/L [facility] TOTAL BILIRUBIN 0.4 0.0 - 1.2 mg/dL [facility] DIRECT BILIRUBIN 0.2 0.0 - 0.2 mg/dL [facility] Bilirubin (Indirect) 0.2 0 - 1.5 mg/dL [facility] AST 37 0 - 37 U/L [facility] ALT <5 0 - 40 U/L [facility] TOTAL PROTEIN 5.9(L) 6.5 - 8.0 g/dL [facility] ALBUMIN 3.5(L) 3.9 - 4.8 g/dL [facility] GLOBULIN 2.4 1 - 4.8 g/dL [facility] A/G Ratio 1.46 1.00 - 4.80 RATIO [facility] Blood 09/15/2024 3:37 AM EDT 09/15/2024 3:43 AM EDT us Jessica Soliz PA-C LAB BLOOD ORDERABLES Final Result Performing Organization Address City/State/[facility] Co de Phone Number [facility] [address] [place] [address] * (ABNORMAL) CBC and differential (09/15/2024 3:37 AM EDT) WBC 9.99 4.00 - 11.00 K/uL [facility] RBC 4.27(L) 4.50 - 5.90 M/uL [facility] HGB 12.2(L) 13.5 - 17.5 g/dL [facility] HCT 36.4(L) 41.0 - 53.0 % [facility] PLT 192 150 - 450 K/uL [facility] MCV 85.2 80.0 - 100.0 fL [facility] MCH 28.6 27.0 - 31.0 pg [facility] MCHC 33.5 32.0 - 36.0 g/dL [facility] RDW 12.4 11.5 - 14.5 % [facility] MPV 10.2 8.4 - 12.0 fL [facility] NRBC 0.00 0.00 /100 WBCs [facility] ABSOLUTE NRBC 0.00 0.00 K/uL [facility] DIFF METHOD Auto [facility] NEUTS 70.7 48.0 - 76.0 % [facility] LYMPHS 16.5(L) 18.0 - 41.0 % [facility] MONOS 8.6 4.0 - 11.0 % [facility] EOS 3.1 0.0 - 5.0 % [facility] BASOS 0.4 0.0 - 1.5 % [facility] Granulocytes, immature (%) 0.7 0.0 - 0.9 % [facility] ABSOLUTE NEUTS 7.06 1.92 - 7.60 K/uL [facility] ABSOLUTE LYMPHS 1.65 0.72 - 4.10 K/uL [facility] ABSOLUTE MONOS 0.86 0.16 - 1.10 K/uL [facility] ABSOLUTE EOS 0.31 0.00 - 0.50 K/uL [facility] ABSOLUTE BASOS 0.04 0.00 - 0.15 K/uL [facility] Granulocytes, immature 0.07 0.00 - 0.09 K/uL [facility] Blood 09/15/2024 3:37 AM EDT 09/15/2024 3:43 AM EDT us Jessica IGLESIAS-C LAB BLOOD ORDERABLES Final Result [address] [address] * (ABNORMAL) Acetaminophen level (09/15/2024 3:37 AM EDT) ACETAMINOPHEN <5.0(L) 15.0 - 30.0 ug/mL [facility] Blood 09/15/2024 3:37 AM EDT 09/15/2024 3:43 AM EDT Jessica IGLESIAS-C LAB BLOOD ORDERABLES Final Result [address] [address] * (ABNORMAL) Salicylates (09/15/2024 3:37 AM EDT) SALICYLATES <0.3(L) 2.8 - 19.9 mg/dL [facility] Blood 09/15/2024 3:37 AM EDT 09/15/2024 3:43 AM EDT Jessica IGLESIAS-Beata LAB BLOOD ORDERABLES Final Result [address] [address] * (ABNORMAL) Basic metabolic panel (09/15/2024 3:37 AM EDT) SODIUM 140 133 - 146 mmol/L [facility] CHLORIDE 105 96 - 108 mmol/L [facility] POTASSIUM 3.9 3.3 - 5.1 mmol/L [facility] CO2 27 21 - 35 mmol/L [facility] BUN 26(H) 6 - 19 mg/dL [facility] CREATININE 0.90 0.5 - 1.5 mg/dL [facility] GLUCOSE 240(H) 70 - 99 mg/dL [facility] CALCIUM 8.9 8.4 - 10.3 mg/dL [facility] EGFR 91 >59 mL/min/1.7 3m2 [facility] Comment:Estimated glomerular filtration rate calculated using the CKD-EPI refit equation. ANION GAP 12 10 - 20 mmol/L [facility] Blood 09/15/2024 3:37 AM EDT 09/15/2024 3:43 AM EDT Jessica IGLESIAS-C LAB BLOOD ORDERABLES Final Result [address] [address] * ENDOSCOPY, COLON (12/08/2019 10:30 AM EDT) Narrative Transcriptions Murphy Waite MD - 12/08/2019 10:30 AM EDT Patient Name: Kirk Sonymerlene Attending MD:: MURPHY WAITE MD Procedure Date: 12/08/2019 10:30 AM Date of : 1950 Age: 69 Admit Type: Outpatient Gender: Male Room: [place] [address] Referring MD: Sundeep Sosa Exam Type: Colonoscopy Indications: Screening for colorectal malignant neoplasm, This is the patient's first colonoscopy Medications: Monitored Anesthesia Care Procedure: Informed consent was obtained from the patient after discussion of the indications, limitations, alternatives, benefits, and risks of the procedure. Risks specifically discussed include but are not limited to medication reactions, missed lesions, bleeding, perforation, or the need for emergentsurgery. Throughout the procedure, the patient's bloodpressure, pulse, end-tidal CO2, and oxygen saturations were monitored continuously. The Olympus pediatric variable [id number] #6 was introduced through the anus and advanced tothe cecum, identified by the appendiceal orifice,ileocecal valve and palpation. The colonoscopy was performed without difficulty. The patient tolerated theprocedure fairly well. The quality of the bowel preparationwas adequate to identify polyps. Complications: No immediate complications. Estimated blood loss:None. Findings: The perianal and digital rectal examinations were normal. Pertinent negatives include normal sphincter tone. Retroflexion in the right colon was performed. The entire examined colon appeared normal on directand retroflexion views. Impression: - The entire examined colon is normal on direct and retroflexion views. - No specimens collected. Recommendation: - Reassurance - Repeat colonoscopy in 10 years for screeningpurposes. MURPHY WAITE MD 12/08/2019 10:58:02 AM This report has been signed electronically. Number of Addenda: 0 Note Initiated On: 12/08/2019 10:30 AM Procedure Code(s): --- Professional --- G0121, Colorectal cancer screening; colonoscopy on individual not meeting criteria for high risk --- Technical --- G0121, Colorectal cancer screening; colonoscopy on individual not meeting criteria for high risk Diagnosis Code(s): --- Professional --- Z12.11, Encounter for screening for malignantneoplasm of colon --- Technical --- Z12.11, Encounter for screening for malignantneoplasm of colon CPT copyright 2018 [employer]. All rights reserved. The codes documented in this report are preliminary and upon teacher assistant reviewmay be revised to meet current compliance requirements. Procedure Date: 12/08/2019 10:30:[address] [place] [id number] Sundeep Boles MD GI PROCEDURE ORDERABL ES Final Result from Last 3 Months or Most Recently Relevant to Health Maintenance Insurance MEDICARE PART A & B Member Subscriber Plan / Payer (Ef fective 2005-Present) Name:Kirk Stapleton Member ID:[id number] Relation to Subscriber:Self Name:Kirk Stapleton Subscriber ID:[id number] Payer ID:[id number] Group ID:Not on file Type:Medicare Address: [facility] [employer] [facility] [address] [place] [id number] [place] [address] MEDICARE PART A & B Member Subscriber Plan / Payer ( fective 2005-Present) Name:Kirk Stapleton Member ID:[id number] Relation to Subscriber:Self Name:Kirk Stapleton Subscriber ID:[id number] Payer ID:[id number] Group ID:Not on file Type:Medicare Address: [place] [id number] [facility] MEDICARE PART A & B [place] MED[place] PART A & [facility]IC[facility] B HEALTH MEDICARE PART A & [facility] PART A & B HEALTH MEDICARE PART A & B [facility] MED[facility] PART A & B [facility] Advance Directives For more information, please contact: [phone] (9AM - 5PM [facility], Thursday-Thursday) Documents on File Type Date Recorded Patient Scheduling Manager Expl anation Healthcare Proxy 08/27/2022 4:21 PM Health Care Proxy * Full Code (Latest Code Status on File) Date Activated Date Inactivated Comments 06/28/2024 2:32 AM Question Answer Comments Code Status Confirmed With: Patient * Full Code Date Activated Date Inactivated Comments 08/23/2022 2:18 PM 06/28/2024 2:32 AM Question Answer Comments Code Status Confirmed With: Other (specify below ) Healthcare Agents on File Name Relationship Healthcare Agent Relationship Communication Byron Romo Alternate Health care Agent (Proxy form on file) Kalee Sheehan Other .Primary Health Care Agent (Proxy form on file) Care Teams Busgirl Relationship Specialty Start Date End Date Sundeep Sosa MD [address] [address] PCP - General Family Medicine 9/17/20 Sundeep Sosa MD [address] [address] Family Medicine 11/25/19 Harvinder Covington DO [address] [place] [address] [email or web address] Geriatric Medicine 05/27/24 Additional Source Comments The information contained in this document represents components of the legal health record. It is not the complete legal health record.[facility]
--- OUTSIDE RECORDS SUMMARY | 2024-11-14 16:24 | XMS_ITS | Encounter Summary ---
Author Organization [facility] Address [address] [facility] [address] [place] [address] Phone Care Team Providers Care Soybean Specialties Cook Name Role Phone Sundeep Sosa MD Unavailable Sundeep Sosa MD Primary Care Provide r AdriaHarvinder DO Unavailable Encounter Details Date Type Department Care Team (Late st Contact Info) Description 08/23/2022 Procedure Pass [facility], Ct Scan - [facility] [address] [place] [address] Social History Tobacco Use Types Packs/Day Years [...] 2:33 PM EDT Aishwarya Pedersen RN * [place] Suicide Severity Rating Scale (Screener/Recent Self-Report) Question [...] documented as of this encounter Care Teams Soybean Specialties Cook Relationship Specialty Start Date End Date Sundeep Sosa MD [address] [address] PCP - General Family Medicine 12/08/19 Sundeep Sosa MD [address] [address] Family Medicine 11/25/19 Harvinder Covington DO [address] [place] [address] [email or web address] Geriatric Medicine 05/27/24 documented as of this encounter Additional Source Comments The information contained in this document represents components of the legal health record. It is not the complete legal health record.[facility]
--- OUTSIDE RECORDS SUMMARY | 2024-11-14 16:24 | XMS_ITS | Encounter Summary ---
Author Organization [facility] Address [address] [facility] [address] [place] [address] Phone Care Team Providers Care Clinical Data Programmer Name Role Phone Sundeep Sosa MD Unavailable Sundeep Sosa MD Primary Care Provide r Adria Harvinder Jaun DO Unavailable Encounter Details Date Type Department Care Team (Late st Contact Info) Description 12/08/2019 Procedure Pass [facility] Admitting Dept Virtual Department [address] [place] [address] Social History Tobacco Use Types Packs/Day Years [...] historical infection status reconciliation 04/04/2010 04/04/2010 06/09/19 1:33 AM EDT CoV-Risk 08/23/2023 08/23/2023 09/03/2023 1:21 AM EDT CoV-Risk 05/06/2024 05/06/2024 05/17/2024 1:22 AM EST documented as of this encounter Care Teams Clinical Data Programmer Relationship Specialty Start Date End Date Sundeep Sosa MD [address] [address] PCP - General Family Medicine 12/08/19 Sundeep Sosa MD [address] [address] Family Medicine 11/25/19 Harvinder Covington DO [address] [place] [address] [email or web address] Geriatric Medicine 05/27/24 documented as of this encounter Additional Source Comments The information contained in this document represents components of the legal health record. It is not the complete legal health record.[facility]
--- OUTSIDE RECORDS SUMMARY | 2024-11-14 16:24 | XMS_ITS | Encounter Summary ---
Author Organization [facility] Address [address] [facility] [address] [place] [address] Phone Care Team Providers Care Pollution Control Engineer Name Role Phone Sundeep Sosa MD Unavailable Sundeep Sosa MD Primary Care Provide r Adria Harvinder Jaun DO Unavailable [phone] Encounter Details Date Type Department Care Team (Late st Contact Info) Description 04/08/2021 Procedure Pass [facility], Ct Scan - [facility] [address] [place] [address] Social History Tobacco Use Types Packs/Day Years [...] Date of Assessment Author No Risk Indicated 04/08/2021 12:25 PM EST Esme Arzate RN * [place] Suicide Severity Rating Scale (Screener/Recent Self-Report) Question Answer Date of Assessment Author 1. Wish to be (Past 1 Month) No 04/08/2021 12:25 PM EST Esme Arzate RN 2. Non-Specific Active Suicidal Thoughts (Past 1 Month) No 04/08/2021 12:25 PM EST Esme Arzate RN 6. Suicidal Behavior (Lifetime) No 04/08/2021 12:25 PM EST Esme Arzate RN documented as of this encounter Plan [...] documented as of this encounter Care Teams Pollution Control Engineer Relationship Specialty Start Date End Date Sundeep Sosa MD [address] [address] PCP - General Family Medicine 12/08/19 Sundeep Sosa MD [address] [address] Family Medicine 11/25/19 Harvinder Covington DO [address] [place] [address] Geriatric Medicine 05/27/24 documented as of this encounter Additional Source Comments The information contained in this document represents components of the legal health record. It is not the complete legal health record.[facility]
--- OUTSIDE RECORDS SUMMARY | 2024-11-14 16:24 | XMS_ITS | Encounter Summary ---
Author Organization [facility] Address [address] [place] [address] Phone Care Team Providers Care Meter Inspector Name Role Phone Sundeep Sosa MD Unavailable Sundeep Sosa MD Primary Care Provide r AdriaHarvinder Jaun DO Unavailable Encounter Details Date Type Department Care Team (Late st Contact Info) Description 07/24/2024 Procedure Pass [facility], Ct Scan - [facility] [address] [place] [address] Social History Tobacco Use Types Packs/Day Years [...] got money to buy more. Never True 07/24/2024 Within the past 6 months the food we bought just didn't last and we didn't have enough money to get more. Never True Residential Stability Answer Date Recor ded What is your housing situation today? I have dave sing 07/24/2024 How many times have you move d in the past 12 months? Zero (I did not move) 07/24/2024 Paying for Meds Answer Date Recorded Do you have trouble paying for medicines? No 07/24/2024 Paying Utility Bills Answer Date Record ed Do you have trouble paying your heating or elect ricity bill? No 07/24/2024 Transportation Answer Date Recorded Has the lack of transportati on kept you from medical appointments or from getting medications? No 07/24/2024 Digital Access Answer Date Recorded No 07/24/2024 Yes 07/24/2024 Do you have reliable internet access at home? Ye s 07/24/2024 Do you have a device (e.g., phone, tablet, computer) with a working camera? Yes 07/24/2024 Intimate Partner Violence Answer Date R ecorded Are you denied basic needs s uch as food, clothing, or medical care? No 07/24/2024 In the past 12 months have y ou been in a relationship with a person who hurts, threatens, or tries to control you? No 07/24/2024 Are you denied basic needs s uch as food, clothing, or medical care? No 07/24/2024 In the past 12 months have y ou been in a relationship with a person who hurts, threatens, or tries to control you? No 07/24/2024 Sex and Gender Information Value Date Recorded Sex Assigned at Male 06/02/2018 5:44 PM EDT Legal Sex Male 7:23 PM EST Gender Identity Male 06/02/2018 5:44 PM EDT Sexual Orientation Straight 06/02/2018 5: 44 PM EDT documented as of this encounter Functional Status * Calculated C-SSRS Risk Score (Lifetime/Recent) Answer Date of Assessment Author No Risk Indicated 07/24/2024 12:20 PM EDT Nolvia Coley RN * [place] Suicide Severity Rating Scale (Screener/Recent Self-Report) Question Answer Date of Assessment Author 1. Wish to be (Past 1 Month) No 07/24/2024 12:20 PM EDT Nolvia Hancock RN 2. Non-Specific Active Suici darnell Thoughts (Past 1 Month) No 07/24/2024 12:20 PM EDT Bobby Hancock RN 6. Suicidal Behavior (Lifetime) No 12:20 PM EDT Nolvia Hancock RN documented as of this encounter Plan of Treatment Not on file documented as of this encounter Visit Diagnoses Not on filedocumented in this encounter Care Teams Meter Inspector Relationship Specialty Start Date End Date Sundeep Sosa MD [address] [address] PCP - General Family Medicine 12/08/19 Sundeep Sosa MD [address] [address] Family Medicine 11/25/19 Harvinder Covington DO [address] [place] [address] [email or web address] Geriatric Medicine 05/27/24 documented as of this encounter Additional Source Comments The information contained in this document represents components of the legal health record. It is not the complete legal health record.[facility]
--- OUTSIDE RECORDS SUMMARY | 2024-11-14 16:24 | XMS_ITS | Encounter Summary ---
Author Organization [facility] Address [address] [place] [address] Phone Care Team Providers Care Scaffold Setter Name Role Phone Sundeep Sosa MD Unavailable Sundeep Sosa MD Primary Care Provide r AdriaHarvidner Jaun DO Unavailable Encounter Details Date Type Department Care Team (Late st Contact Info) Description 07/24/2024 Procedure Pass [facility], Ct Scan - [facility] [address] [place] [address] Social History Tobacco Use Types Packs/Day Years [...] 12:20 PM EDT Nolvia Coley RN * [place] Suicide Severity Rating Scale (Screener/Recent Self-Report) Question [...] on filedocumented in this encounter Care Teams Scaffold Setter Relationship Specialty Start Date End Date Sundeep Sosa MD [address] [address] PCP - General Family Medicine 12/08/19 Sundeep Sosa MD [address] [address] Family Medicine 11/25/19 Harvinder Covington DO [address] [place] [address] [email or web address] Geriatric Medicine 05/27/24 documented as of this encounter Additional Source Comments The information contained in this document represents components of the legal health record. It is not the complete legal health record.[facility]
--- OUTSIDE RECORDS SUMMARY | 2024-11-14 16:24 | XMS_ITS | Encounter Summary ---
Author Organization [facility] Address [address] [facility] [address] [place] [address] Phone Care Team Providers Care Trash Collector Truck Driver Name Role Phone Sundeep Sosa MD Unavailable Sundepe Sosa MD Primary Care Provide r Adria Harvinder Jaun DO Unavailable Encounter Details Date Type Department Care Team (Late st Contact Info) Description 04/08/2021 Procedure Pass [facility], Ct Scan - [facility] [address] [place] [address] Social History Tobacco Use Types Packs/Day Years [...] 12:25 PM EST Esme Arzate RN * [place] Suicide Severity Rating Scale (Screener/Recent Self-Report) Question [...] documented as of this encounter Care Teams Trash Collector Truck Driver Relationship Specialty Start Date End Date Sundeep Sosa MD [address] [address] PCP - General Family Medicine 12/08/19 Sundeep Sosa MD [address] [address] Family Medicine 11/25/19 Harvinder Covington DO [address] [place] [address] Geriatric Medicine 05/27/24 documented as of this encounter Additional Source Comments The information contained in this document represents components of the legal health record. It is not the complete legal health record.[facility]
== END 2024-11-14 15:31 | disposition home or self-care (01) ==
PROVIDERS: PCP Family Medicine; Visit Provider Nurse Practitioner Family
DX: G20.B2 Parkinson's disease with dyskinesia, with fluctuations (principal); I95.1 Orthostatic hypotension; F39 Unspecified mood [affective] disorder; G31.84 Mild cognitive impairment of uncertain or unknown etiology
CPT/HCPCS: 99214

== ENCOUNTER 2025-02-09 08:57 | Outpatient (AMB) | payer MEDICARE, MEDICAID, SELFPAY ==
[2025-02-09 09:04] VITALS: BP 100/60; PULSE 81; O2SAT 97
--- NOTE | 2025-02-09 09:04 | A.OFFVIS_ITS ---
Vital Signs 02/09/25 09:04 Height 5 ft 10 in BP 100/60 Blood Pressure Location Rt brachial Position Sitting Pulse 81 Pulse Source Pulse Oximeter Pulse Oximetry (%) 97 Oxygen Delivery Method Room Air Intake Visit Reasons: 3mnth Intake Note: Follow up Parkinson's disease with dyskinesia, Orthostatic hypotension, mood disorder and MCI - Mild Cognitive disorder Co Founder And Ceo Required: No Accompanied by: Staf in jail Allergies morphine Allergy (Verified 02/09/25 09:04) Unknown HPI Comments Details: 74-yr-old male presents for f/u visit for Parkinson's disease, accompanied by his jail staff member.No new concerns He had 2 falls since last visit he has mild intermittent hallucinations ? vivid dreaming Pt's current PD medication regimen: Rytary 61.25-245mg- 2 caps QID at 5:30am, 10am, 2:30pm, 7pm, and 1 cap daily at 10pm Nuplazid 34mg qd. ADL's: Needing some help. he eats good He has PT and Ot 2/week Swallowing: No issues Drooling: Denies Orthostatic lightheadedness: Not recently, but has been lightheaded when he first gets up in the am- around 7am. Feels he does better when he wakes up at 6am and takes water an days back down x's an hour. Goes to bed around 7-8pm. Patient has follow-up with [facility] nephrology next month. He was last seen by [facility] in 05/12/2023. Constipation: Denies Urinary symptoms: Patient denies any current urinary issues or nocturnal incontinence. Freezing: Occasionally at times- not bothersome Stiffness: Denies Dyskinesia: moderate to severe Tremor: None Memory: Patient denies any issues, but also notes his cognition is not as strong as before. . Mood: Stable now Sleep: Sleeping ok PFSH Medical History DVT (deep venous thrombosis) Diabetes Parkinsons Surgical History No pertinent past surgical history Social History Household Members: Other Housing: Other Do you presently have visiting nurse or other home services: No Alcohol intake: never Comment: 1:1 Patient Tobacco Use Status: Never used Tobacco service: No Sexual orientation: Straight/Heterosexual Physical Exam Vital Signs: Last Vital Signs Pulse 81 02/09/25 09:04 BP 100/60 02/09/25 09:04 Pulse Ox 97 02/09/25 09:04 Oxygen Delivery Method Room Air 02/09/25 09:04 Const General: cooperative and no acute distress Resp Effort & Inspection: normal respiratory effort and able to speak in complete sentences Neuro Other: General: A&O. Expression: Decreased Voice: soft Tremor: None Tone: BUE tone Dyskinesia: moderate dyskinesias FFM: BUE Bradykinesia Foot taps: BLE bradykinesia Gait: not evaluated Psych: Pleasant affect Assessment & Plan Assessment & Plan (1) Parkinson's disease with dyskinesia: Code(s): G20.B1 - Parkinson's disease with dyskinesia, without mention of fluctuations Category: Medical Qualifiers: Fluctuating manifestations: with fluctuating manifestations Qualified Code(s): G20.B2 - Parkinson's disease with dyskinesia, with fluctuations (2) Orthostatic hypotension dysautonomic syndrome: Code(s): I95.1 - Orthostatic hypotension Category: Medical (3) Mood disorder: Comment: w/ h/o delusions and hallucinations Code(s): F39 - Unspecified mood [affective] disorder Category: Medical (4) MCI (mild cognitive impairment): Code(s): G31.84 - Mild cognitive impairment of uncertain or unknown etiology Category: Medical Plan He is not a good cnadidiate for douglas due to his hallucinations and delusions ( better controlled now ) I will decrease Rytary 61. 25-245mg to 2 caps QID at 6.00am, 11am, 4pm, 9pm D/c 10 pm dose of Rytary 61.25/245 mg to decrease dyskinesias * Nuplazid 34mg qd f/u in 3-6 months or sooner prn. Medications: Changed From carbidopa-levodopa 61.25-245 mg ER (Rytary) Order increased to: Rytary 61. 25-245mg- 2 caps QID at 5:30am, 10am, 2:30pm, 7pm, and 1 cap daily at 10pm. 30 days 270 caps 6RF To carbidopa-levodopa 61.25-245 mg ER (Rytary) 6 am.11am, 4pm and 9pm 2 caps PO QID 240 caps 6RF 30 days Coding Level of Care Code Est Pt Level 4 (26300) Complex EM visit Add On G2211 Diagnoses Parkinson's disease with dyskinesia and fluctuating manifestations G20.B2 Fluctuating manifestations: with fluctuating manifestations Orthostatic hypotension dysautonomic syndrome I95.1 Mood disorder F39 MCI (mild cognitive impairment) G31.84
== END 2025-02-09 09:38 | disposition home or self-care (01) ==
LOC: HO.HSMS 08:58
PROVIDERS: PCP Family Medicine; Visit Provider Psychiatry & Neurology Neurology
DX: G20.B2 Parkinson's disease with dyskinesia, with fluctuations (principal); I95.1 Orthostatic hypotension; F39 Unspecified mood [affective] disorder; G31.84 Mild cognitive impairment of uncertain or unknown etiology
CPT/HCPCS: 99214; G2211

== ENCOUNTER → 2025-02-09 08:57 | Outpatient (BNVA) | payer MEDICARE, MEDICAID, SELFPAY | PROVIDERS: PCP Family Medicine; Visit Provider Psychiatry & Neurology Neurology | DX: G20.B2 Parkinson's disease with dyskinesia, with fluctuations (principal); I95.1 Orthostatic hypotension; F39 Unspecified mood [affective] disorder; G31.84 Mild cognitive impairment of uncertain or unknown etiology; Z91.81 History of falling | CPT/HCPCS: 99212 ==